=== PATIENT | female | born 1965 | race Caucasian/White ===

== ENCOUNTER 2023-05-16 13:46 | Outpatient (CLI) | payer OTHER, SELFPAY ==
--- NOTE | ~2023-05-16 | MM_ITS ---
EXAMINATION: MM screening lisa BI w doroteo HISTORY: Screening TECHNIQUE: Craniocaudal and mediolateral oblique 3-D tomosynthesis images were obtained and synthetic 2-D images were generated. CAD analysis was submitted and interpreted. COMPARISON: No prior mammogram is available for comparison at this institution. BREAST PARENCHYMAL COMPOSITION: Not dense: There are scattered areas of fibroglandular density. FINDINGS: There are bilateral asymmetries in the upper outer quadrant of both breasts. There are no s uspicious calcifications or architectural distortion in either breast. IMPRESSION: 1. Bilateral breast asymmetries. 2. Additional spot compression and mediolateral views with possible follow-up breast ultrasound recom mended. BI-RADS Category 0: Incomplete: Needs additional imaging evaluation. Reviewed, dictated and finalized at location A. CUTTER IMPRESSION: 1. Bilateral breast asymmetries. 2. Additional spot compression and mediolateral views with possible follow-up b reast ultrasound recommended. BI-RADS Category 0: Incomplete: Needs additional imaging evaluation.
== END 2023-05-16 13:47 | disposition home or self-care (01) ==
LOC: ANHIMG 13:49
PROVIDERS: Visit Provider Obstetrics & Gynecology
DX: Z12.31 Encounter for screening mammogram for malignant neoplasm of breast (principal); R92.8 Other abnormal and inconclusive findings on diagnostic imaging of breast
CPT/HCPCS: 77063; 77067

== ENCOUNTER 2024-06-01 10:08 | Emergency (ER) | payer OTHER, SELFPAY ==
--- NOTE | ~2024-06-01 | CT_ITS ---
CT pelvis wo con Ordering provider: Jessica Lovell PA-C History: . fall, low back pain, left hip/pelvis pain . Comparison: None. Technique: CT pelvis without oral and IV contrast. . Automated exposure control and iterative recons truction technique were employed. The dose-length product was 208.64 mGy-cm. Findings: BONES: Fracture of the left pubic bone is noted with no displacement. Possibility of fracture in the left inferior pubic ramus is not excluded. Age appropriate degenerative changes of the visualized low er lumbar spine. The hip and sacroiliac joint spaces shows osteoarthritic changes. SUPERFICIAL SOFT TISSUES: Normal. PELVIC ORGANS: The bladder shows slightly thickened wall. VISUALIZED BOWEL AND MESENTERY: Normal. No free air or free fluid. No lymphadenopathy. RETROPERITONEUM: Mild atheromatous disease. IMPRESSION: Undisplaced fracture of the left pubic bone with possibility of a fracture in the left inferior pubic ramus. Follow-up advised. Reviewed, dictated and finalized at location A. IMPRESSION: Undisplaced fracture of the left pubic bone with possibility of a fracture in t he left inferior pubic ramus. Follow-up advised.
--- NOTE | ~2024-06-01 | XR_ITS ---
EXAMINATION: XR hip LT min 3V w AP pelvis DATE: 06/01/2024 11:45 INDICATION: Left hip injury. TECHNIQUE: An anteroposterior view of the pelvis and 3 views of left hip were obtained. COMPARISON: None. FINDINGS: Alignment is normal. There is a fracture deformity of left parasymphyseal pubis. There is m ild osteoarthritis of the hips. There is at least mild lumbar spondylosis. IMPRESSION: 1. Age-indeterminate fracture deformity of left parasymphyseal pubis. 2. Mild osteoarthritis of the hips. Reviewed, dictated and finalized at location B.
[2024-06-01 10:12] VITALS: BP 122/76; PULSE 86; RESP 16; TEMP 36.7; O2SAT 99
--- OUTSIDE RECORDS SUMMARY | 2024-06-01 11:28 | XMS_ITS | Clinical Summary ---
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 take with empty stomach, 45 minutes before food/medications /supplement. Taking consistently and correctly to ensure good/stable absorption of the thyroid hormone medication. 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); Autoimmune thyroiditis 03/23/2024 [facility]phone [facility] [address] [place] [address] Outpatient Health 4th Floor [address] [place] [phone] Nuvia Staton 03/19/2024 Telephone [facility] [address] [facility] Outpatient Health 4th Floor [address] [place] [address] Nuvia Staton from Last 3 Months Social History Tobacco Use Types Packs/Day Years Used Date Smoking Tobacco: Never Smokeless Tobacco: Never Tobacco Cessation:Counseling Given: Not Answered Comments Unknown Sex and Gender Information Value Date Recorded Sex Assigned at Not on file Legal Sex Female 10:11 AM CDT Gender Identity Not on file Sexual Orientation Not on file Obstetrics History Last Filed Vital Signs Vital Sign Reading Time Taken Comments Blood Pressure 147/75 04/09/2024 3:51 PM DESIGN ENGINEER [employer] Pulse 96 04/09/2024 3:00 PM DESIGN ENGINEER [employer] Temperature 36.7 C (98.1 F) 04/09/2024 3:00 PM DESIGN ENGINEER [employer] Respiratory Rate - - Oxygen Saturation - - Inhaled Oxygen Concentration - - Weight 62.3 kg (137 lb 6.4 oz) 04/09/2024 3:00 P M DESIGN ENGINEER [employer] Height 172.7 cm (5' 8 ) 04/09/2024 3:00 PM DESIGN ENGINEER [employer] Body Mass Index 20.89 04/09/2024 3:00 PM DESIGN ENGINEER [employer] Plan of Treatment Health Maintenance Due Date Last Done Comments Breast Cancer Screening-Mammogram 1965 Cervical Cancer Screening 1965 Colon Cancer Screening-Colonoscopy 1963 Depression Screening 1965 Hepatitis C Screening 1965 DTaP/Tdap/Td Vaccine (1 - Tdap) 12/23/1974 Hepatitis B Screening 12/23/1981 Regular Well Visit/Exam 18-64 12/23/1981 Zoster Vaccine (1 of 2) 12/23/2013 Covid-19 Vaccine ( season) 2023 10/18/2021, 03/13/2021, 07/20/2020, Additional history exists Influenza Vaccine (#1) 2023 Pneumococcal vaccine <65 Aged Out No longer eligible based on patient's age to complete this topic Insurance [facility] Care Teams Memorial Designer Relationship Specialty Start Date End Date Tod Vargas MD [address] [address] PCP - General Family Medicine 07/16/21
--- OUTSIDE RECORDS SUMMARY | 2024-06-01 11:28 | XMS_ITS | Clinical Summary ---
Author Organization [facility] [employer] Address [address] [facility] [place] [address] Care Team Providers Care Director Decision Support Name Role Phone Floresita Sinha Primary Care Provider [phone] Source Comments [facility],non-owned Affiliates and Associated Physician Practices is amultiple site organization consisting of ambulatory clinics and hospital sitesin [place], [place], [place] and [place]. This disclosure is being madepursuant to the Care Everywhere program and may not contain all information available regarding this patient. Last updated 17.[facility] [employer] Allergies No known active allergies Medications * Be aware that medications may not be up to date on this document. Alwaysverify current medications with the patient. Medication Sig Dispensed Refills Start Date End Date Status folic acid (Folvite) 1 MG tablet Take 1 (one) tablet by mouth every morning 12/27/2022 Active levothyroxine (Synthroid) 100 MCG tablet 03/30/2005 Active cyanocobalamin (Vitamin B-12) 1000 MCG tablet Take by mouth once daily Active clobetasol (Temovate) 0.05 % solutionIndications:O ther cicatricial alopecia Apply to scalp twice daily. 30 days supply. 50 mL 3 08/07/2023 Active doxycycline hyclate 100 MG tabletIndications:Oth er cicatricial alopecia TAKE 1 TABLET BY MOUTH TWICE DAILY 60 tablet 2 11/03/2023 Active ketoconazole (Nizoral) 2 % shampooIndications:Ot her seborrheic dermatitis Apply to wet hair, leave on for 3 minutes, then rinse; three times weekly. 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 Immunizations Name Administration Dates Next Due Covid Pfizer primary monoval ent 12+ yr 0.3mL Purple cap 07/20/2020,06/28/2020 MODERNA SARS-COV-2 COVID-19 VACCINE 0.25ML 03/13 Social History Tobacco Use Types Packs/Day Years Used Date Smoking Tobacco: Never Smokeless Tobacco: Never Tobacco Cessation:Counseling Given: Not Answered Alcohol Use Standard Drinks/Week Comments Yes 0 (1 standard drink = 0.6 oz pur e alcohol) occasionaly Sex and Gender Information Value Date Recorded Sex Assigned at Female 01/28/2023 11:52 AM MARKETING SUPPORT COORDINATOR Gender Identity Female 01/28/2023 11:52 AM MARKETING SUPPORT COORDINATOR Sexual Orientation Not on file Plan of Treatment Upcoming Encounters Date Type Department Care Team (Late st Contact Info) Description 08/02/2024 2:10 PM CDT Office Visit [facility] - Dermatology [address] [place] [address], [place] [address] Kylee Razo MD [address] [place] [address] [place] [address] Health Maintenance Due Date Last Done Comments COLON MONITORING 1963 COLONOSCOPY - COLON CA SCREENING 1963 CT COLONOGRAPHY - COLON CA SCREENING 1963 FIT - COLON CA SCREENING 1963 FLEX SIG - COLON CA SCREENING 1963 LIPID TESTING 1963 MAMMOGRAM 1963 PAP SMEAR 1963 HIV SCREENING 12/23/1978 HEPATITIS C SCREENING 12/19/1981 DTAP/TDAP/TD VACCINES (1 - Tdap) 12/23/1982 PNEUMOCOCCAL VACCINE 50+ (1 of 1 - PCV) 12/23/2013 ZOSTER VACCINE (1 of 2) 12/23/2013 COVID-19 VACCINE ( season) 2023 04/28/2022, 03/13/2021, 07/20/2020, Additional history exists INFLUENZA VACCINE (#1) 2023 DEPRESSION SCREENING 03/24/2024 COLOGUARD (AGES 45-75) - COLON CA SCREENING 11/07/2024 11/07/2021 Colorectal Cancer Screening 11/07/2024 Respiratory Syncytial Virus (RSV) Vaccine Pt: or over 60 yrs (1 - 1-dose 75+ series) 12/23/2038 HEPATITIS B VACCINE Aged Out No longe r eligible based on patient's age to complete this topic HIB VACCINE Aged Out No longer eligi ble based on patient's age to complete this topic HPV VACCINE Aged Out No longer eligi ble based on patient's age to complete this topic MENINGOCOCCAL (Group B) VACCINE Aged Out No longer eligible based on patient's age to complete this topic MENINGOCOCCAL VACCINE Aged Out No pete bipin eligible based on patient's age to complete this topic Care Teams Director Decision Support Relationship Specialty Start Date End Date Florseita Sinha [address] [place] [address] PCP - General 02/02/24
--- OUTSIDE RECORDS SUMMARY | 2024-06-01 11:28 | XMS_ITS | Patient Health Summary ---
Author Organization [facility] Address [address] [facility] [place] [address] Care Team Providers Care General Labor Forklift Operator Name Role Phone Floresita Sinha Primary Care Provider [phone] Note from [facility],non-owned Affiliates and Associated Physician Practices is amultiple site organization consisting of ambulatory clinics and hospital sitesin [place], [place], [place] and [place]. This disclosure is being madepursuant to the Care Everywhere program and may not contain all information available regarding this patient. Last updated 17.[facility] Allergies No known active allergies Medications * Be aware that medications may not be up to date on this document. Alwaysverify current medications with the patient. * folic acid (Folvite) 1 MG tablet(Started 12/27/2022) Take 1 (one) tablet by mouth every morning * levothyroxine (Synthroid) 100 MCG tablet(Started 03/30/2005) * cyanocobalamin (Vitamin B-12) 1000 MCG tablet Take by mouth once daily * clobetasol (Temovate) 0.05 % solution(Started 08/07/2023) Apply to scalp twice daily. 30 days supply. 3 refills by 08/06/2024 * doxycycline hyclate 100 MG tablet(Started 11/03/2023) TAKE 1 TABLET BY MOUTH TWICE DAILY 2 refills by 11/02/2024 * ketoconazole (Nizoral) 2 % shampoo(Started 02/02/2024) Apply to wet hair, leave on for 3 minutes, then rinse; three times weekly. 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 Immunizations * Covid Pfizer primary monovalent 12+ yr 0.3mL Purple cap(Given 07/20/2020, 06/28/2020) * MODERNA SARS-COV-2 COVID-19 VACCINE 0.25ML(Given 03/13/2021) Social History Tobacco Use Types Packs/Day Years Used Date Smoking Tobacco: Never Smokeless Tobacco: Never Tobacco Cessation:Counseling Given: Not Answered Alcohol Use Standard Drinks/Week Comments Yes 0 (1 standard drink = 0.6 oz pur e alcohol) occasionaly Sex and Gender Information Value Date Recorded Sex Assigned at Female 01/28/2023 11:52 AM SATURATOR Gender Identity Female 01/28/2023 11:52 AM SATURATOR Sexual Orientation Not on file Procedures * SC DESTROY PREMALIG LESION, 2-14(Performed 02/02/2024) Performed for Actinic keratosis * SC DESTROY PREMALIG LESION, 1ST LESION(Performed 02/02/2024) Performed for Actinic keratosis * SC TANGNTL BX SKIN SINGLE LES(Performed 07/28/2023) Performed for Neoplasm of uncertain behavior of skin * SC DESTROY PREMALIG LESION, 1ST LESION(Performed 07/28/2023) Performed for AK (actinic keratosis) * DERMATOPATHOLOGY(Performed 07/28/2023) Performed for Neoplasm of uncertain behavior of skin * SC EXC SKIN MALIG <5MM TRUNK,ARM,LEG(Performed 03/04/2023) Performed for Basal cell carcinoma (BCC) of chest * SC EXC SKIN MALIG 2.1-3CM TRUNK,ARM,LEG(Performed 03/04/2023) Performed for Basal cell carcinoma (BCC) of chest * PROC EXCISION LESION TRUNK ARM LEG MALIG(Performed 03/04/2023) Performed for Basal cell carcinoma (BCC) of chest * DERMATOPATHOLOGY(Performed 03/04/2023) Performed for Basal cell carcinoma (BCC) of chest * SC TANGNTL BX SKIN EA SEP ADDL(Performed 01/30/2023) Performed for Neoplasm of uncertain behavior of skin * SC TANGNTL BX SKIN SINGLE LES(Performed 01/30/2023) Performed for Neoplasm of uncertain behavior of skin * SC DESTROY PREMALIG LESION, 2-14(Performed 01/30/2023) Performed for AK (actinic keratosis) * SC DESTROY PREMALIG LESION, 1ST LESION(Performed 01/30/2023) Performed for AK (actinic keratosis) * DERMATOPATHOLOGY(Performed 01/30/2023) Performed for Neoplasm of uncertain behavior of skin Results * SC DESTROY PREMALIG LESION, 1ST LESION, SC DESTROY PREMALIG LESION, 2-14 (02/02/2024 3:05 PM SATURATOR) Kylee Vaughn MD - 02/02/2024 3:05 PM SATURATOR Aidan Stephen MD 02/02/2024 3:05 PM Diagnosis and treatment options discussed. Cryotherapy (Liquid Nitrogen) to 5 lesions for 4-6 seconds each. Number of cycles: 1. Wound care reviewed. Kylee Razo MD PROCEDURE/MINOR SURG ICAL ORDERABLES * SC TANGNTL BX SKIN SINGLE LES (07/28/2023 11:01 AM CDT) Kylee Vaughn MD - 07/28/2023 11:01 AM CDT Wesly Fernández MD 07/28/2023 11:01 AM Risks, benefits and alternatives to shave biopsy were discussed with the patient. Pt understands the possibility for the following: Bleeding, infection, scar (100% chance), the possibility of non-diagnostic reading and the potential need for further testing or treatment, including surgical. Stated clearly the size of the specimen and the need to obtain adequate tissue for the most accurate path reading. Pt accepts all of above, verbal consent was obtained. Location: Vertex scalp Skin prep: Alcohol Anesthesia: 1% lidocaine with epinephrine Hemostasis: Aluminum chloride Dressing and wound care discussed Wesly Fernández MD Dermatology Resident, PGY-2 Kylee Razo MD PROCEDURE/MINOR SURG ICAL ORDERABLES * SC DESTROY PREMALIG LESION, 1ST LESION (07/28/2023 11:01 AM CDT) Kylee Vaughn MD - 07/28/2023 11:01 AM CDT Wesly Fernández MD 07/28/2023 11:01 AM Diagnosis and treatment options discussed, addressing the benefit and risks of each. Pt wish to proceed with cryotherapy. Liquid Nitrogen was applied to 1 lesion on (left forehead) for 7-10s each. Number of cycles: 1. Wound care reviewed. Wesly Fernández MD Dermatology Resident, PGY-2 Kylee Razo MD PROCEDURE/MINOR SURG ICAL ORDERABLES * DERMATOPATHOLOGY (07/28/2023 3:33 AM CDT) Only the most recent of3 resultswithin the time period is included. Case Report Dermatopathology Report Case: [id number] Authorizing Provider: Kylee Razo MD Collected: 07/28/2023 03:33 AM Ordering Location: [facility] - Received: 07/28/2023 01:36 PM Dermatology Pathologist: Ying Castillo MD Specimen: Skin, vertex scalp 11:37 AM CDT DERMATOPATHOLOGY LABORATORY Final Diagnosis Specimen A. 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 11:37 AM CDT DERMATOPATHOLOGY LABORATORY Gross Description Specimen A: Received is one formalin filled container labeled with the patient's name and designated vertex scalp. The specimen consists of a shave biopsy measuring 10x7x2 mm. Jar 0. 11:37 AM CDT DERMATOPATHOLOGY LABORATORY Microscopic Description Specimen A. SKIN, vertex scalp: Sections show a perifollicular lymphohistiocytic infiltrate. There is dermal fibrosis with is accentuated perifollicularly. Additional deeper sections were obtained and reviewed. Grocott's methenamine silver (GMS) stain fails to highlight fungal elements in the available sections. Verhoeff-Van Gieson (VVG) elastic stain highlights foci of diminished elastic fibers. Comment: These findings are favored to represent superficial sampling of a lymphocytic scarring alopecia, such as lichen planopilaris. Clinicopathologic correlation is recommended. 11:37 AM CDT DERMATOPATHOLOGY LABORATORY Disclaimer An external and internal positive and negative controls are appropriate for the histochemical, immunohistochemical and immunofluorescence stain(s) in this case (if any), except where stated explicitly. The performance characteristics of the stain(s) cited in this report were developed and its performance characteristic determined by the Dermatopathology Laboratory at [facility], directed by Dr. Dmitry Rousseau. These tests need not be, and therefore are not, approved by the [place] Food and Drug Administration. The tests are used for clinical purposes. Billing Codes Specimen Charges Stain Charges 53964 1 [id number] 1 1 4 11:37 AM CDT DERMATOPATHOLOGY LABORATORY Embedded Images 4 11:37 AM CDT DERMATOPATHOLOGY LABORATORY Pathology/Cytolo gy TISSUE SPECIMEN FROM SKIN / Unknown 07/28/2023 3:33 AM CDT 07/28/2023 1:36 PM CDT Kylee Razo MD LAB - PATHOLOGY/CYTO LOGY ORDERABLES DERMATOPATHOLOGY LABORATORY [facility] - Department of Dermatology [address], [address] [phone] * SC EXC SKIN MALIG 2.1-3CM TRUNK,ARM,LEG, SC EXC SKIN MALIG <5MM TRUNK,ARM,LEG (03/04/2023 4:11 PM SATURATOR) Narrative Kylee Razo MD - 03/04/2023 4:11 PM SATURATOR Kylee Razo MD 03/04/2023 4:14 PM Elliptical Excision with Intermediate Closure Date of Service: 03/04/2023 Tumor Type: BCC Location: central chest Derm-Path Lesion Size: 1.6 *1.1 cm Repair Type: Intermediate Repair Size: 4.8 cm Suture Material: 4-0 monocryl Level of Defect: adipose Surgical Margins: 4 mm Primary Surgeon: Dung Head Rigger: Brendon INDICATIONS: The risks of bleeding, infection, discomfort, incomplete removal, and scar formation were explained to the patient. All questions were answered. After informed consent, confirmation of site and identity, and appropriate instructions, the patient underwent the procedure as follows: PROCEDURE: With the patient in a supine position, the lesion was outlined with 0.4 cm margins measuring 2.4 x 1.9 cm. An ellipse was designed around the lesion to conform to relaxed skin tension lines in an effort to minimize scarring and deformity. The patient was then positioned on the table. The lesion and surrounding skin were prepped with chlorhexidine, draped, and anesthetized with 1% lidocaine with epinephrine 1:100,100 buffered with 1:10 sodium bicarbonate. Using a #15 blade the skin was excised along premarked lines. The resulting defect extended to adipose. Wound margins were undermined to limit functional deformity/impairment of adjacent structures. Bleeding vessels were controlled with monopolar electrodesiccation. The dermis and subcutaneous tissue were closed with buried vertical mattress sutures. Epidermal approximation was meticulously refined with subcutaneous running sutures, resulting in a linear closure with little to no wound tension. Blood loss was estimated to be less than 5cc. The area was covered with steri strip and covered with a non-adherent dressing followed by gauze and tape. Postoperative instructions were reviewed per protocol. The patient left alert and fully oriented. Antibiotics none Kylee Razo MD Kylee Razo MD PROCEDURE/MINOR SURG ICAL ORDERABLES * SC TANGNTL BX SKIN SINGLE LES, SC TANGNTL BX SKIN EA SEP ADDL (01/30/2023 10:22 AM SATURATOR) Narrative Kylee Razo MD - 01/30/2023 10:22 AM SATURATOR Kylee Razo MD 02/05/2023 8:51 AM Derm - Shave Biopsy Date/Time: 01/30/2023 10:22 AM Performed by: Kylee Razo MD Authorized by: Kylee Razo MD Consent given by: patient Consent type: verbal Risks discussed with patient: bleeding, need for further testing/treatment, infection, scar formation, skin color change and non-diagnostic biopsy. Procedure details: Skin prep: isopropyl alcohol Anesthesia: bupivacaine 0.25% with epi Location information Central chest Number of standard lesions: 1 Total number of lesions: 2 Instrument(s) used: flexible razor blade Hemostasis achieved with aluminum chloride Wound dressing: bandage and petrolatum EBL: no blood loss Complications: none Wound care discussed with patient? yes Specimen(s) sent to pathology Patient preferred contact method(s): phone Kylee Razo MD PROCEDURE/MINOR SURG ICAL ORDERABLES * SC DESTROY PREMALIG LESION, 1ST LESION, SC DESTROY PREMALIG LESION, 2-14 (01/30/2023 10:22 AM SATURATOR) Narrative Kylee Razo MD - 01/30/2023 10:22 AM SATURATOR Kylee Razo MD 02/05/2023 8:51 AM Derm - Destruction Pre-malignant Date/Time: 01/30/2023 10:22 AM Performed by: Kylee Razo MD Authorized by: Kylee Razo MD Consent given by: patient Consent type: verbal Risks discussed with patient: scar formation, skin color change, need for further testing/treatment, pain, blistering and infection. Consent type: verbal Procedure details: Location information L cheek and FH Number of standard lesions: 2 Total number of lesions: 2 Destruction method: cryotherapy Cryotherapy cycles: 1 Cryotherapy time per cycle (seconds): 5-7 Complications: none Wound care discussed with patient? yes Kylee Razo MD PROCEDURE/MINOR SURG ICAL ORDERABLES Care Teams General Labor Forklift Operator Relationship Specialty Start Date End Date [facility] [place] [phone] PCP - General 02/02/24
--- OUTSIDE RECORDS SUMMARY | 2024-06-01 11:28 | XMS_ITS | Referral Summary ---
Author Organization [facility] [address] Address [address] [place] [address] Care Team Providers Care Machine I Engraver Name Role Phone Tod Vargas MD Primary Care Provi moraima Encounters Date Type Department Care Team Description 04/13/2024 Telephone [facility] Endocrinology Metabolism and Lipid [address] [facility] 5th [place] [address] [place] [phone] Micha Durant RN Prior Auth (Synthroid ) 04/09/2024 3:00 PM SET UP MECHANIC COIL WINDING MACHINES Office Visit [facility] Endocrinology Metabolism and Lipid [address] [facility] [address] [place] [address] Skip Ahn MD 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); Autoimmune thyroiditis 03/23/2024 [facility] [address] [place] [address] Outpatient Health 4th Floor [address] [place] [phone] Nuvia Staton 03/19/2024 [facility]phone [facility] [address] [place] [address] Outpatient Health 4th Floor [address] [place] [phone] Nuvia Staton from Last 3 Months Allergies No known active allergies Medications albuterol [...] Active Active Problems No known active problems Social History Tobacco Use Types Packs/Day Years Used Date Smoking Tobacco: Never Smokeless Tobacco: Never Tobacco Cessation:Counseling Given: Not Answered Comments Unknown Sex and Gender Information Value Date Recorded Sex Assigned at Not on file Legal Sex Female 10:11 AM CDT Gender Identity Not on file Sexual Orientation Not on file Last Filed Vital Signs Vital Sign Reading Time Taken Comments Blood Pressure 147/75 04/09/2024 3:51 PM SET UP MECHANIC COIL WINDING MACHINES Pulse 96 04/09/2024 3:00 PM SET UP MECHANIC COIL WINDING MACHINES Temperature 36.7 C (98.1 F) 04/09/2024 3:00 PM SET UP MECHANIC COIL WINDING MACHINES Respiratory Rate - - Oxygen Saturation - - Inhaled Oxygen Concentration - - Weight 62.3 kg (137 lb 6.4 oz) 04/09/2024 3:00 P M SET UP MECHANIC COIL WINDING MACHINES Height 172.7 cm (5' 8 ) 04/09/2024 3:00 PM SET UP MECHANIC COIL WINDING MACHINES Body Mass Index 20.89 04/09/2024 3:00 PM SET UP MECHANIC COIL WINDING MACHINES Plan of Treatment Not on file Insurance [facility] Care Teams Machine I Engraver Relationship Specialty Start Date End Date Tod Vargas MD [address] [address] PCP - General Family Medicine 07/16/21
--- OUTSIDE RECORDS SUMMARY | 2024-06-01 11:28 | XMS_ITS | Referral Summary ---
Author Organization [facility] Address [address] [facility] [place] [address] Care Team Providers Care Sys Dir Name Role Phone Floresita Sinha Primary Care Provider [phone] Source Comments [facility],non-owned Affiliates and Associated Physician Practices is amultiple site organization consisting of ambulatory clinics and hospital sitesin [place], [place], [place] and [place]. This disclosure is being madepursuant to the Care Everywhere program and may not contain all information available regarding this patient. Last updated 17.[facility] Allergies No known active allergies Medications * [...] Sex Assigned at Female 01/28/2023 11:52 AM SUCTION OPERATOR Gender Identity Female 01/28/2023 11:52 AM SUCTION OPERATOR Sexual Orientation Not on file Plan of Treatment Upcoming Encounters Date Type Department Care Team (Late st Contact Info) Description 08/02/2024 2:10 PM CDT Office Visit [facility] - Dermatology [address] [place] [address], [place] [address] Kylee Razo MD [address] [place] [address] [place] [address] Care Teams Sys Dir Relationship Specialty Start Date End Date Floresita Sinha [address] [place] [phone] PCP - General 02/02/24
--- NOTE | 2024-06-01 11:56 | ED_ITS ---
HPI - Fall General Chief Complaint: Fall Stated Complaint: left groin pain after fall on 05/29/24 Time Seen by Provider: 06/01/24 11:05 Source: patient Mode of arrival: wheelchair Limitations: no limitations History of Present Illness HPI Narrative: This is a 58-year-old female that presents to the emergency department for left hip pain. Reports she was going to sit down and missed the chair 3 days ago. She fell backwards onto her bottom. Since she has been having low back pain and left hip pain. She is unable to bear weight due to pain. Denies decreased ROM or numbness. Related Data Home Medications ?Medication ?Instructions ?Recorded ?Confirmed ?Last Taken ?Type levothyroxine 100 mcg tablet 100 mcg PO DAILY 01/13/23 01/21/24 Unknown History (Synthroid) dextroamphetamine-amphetamine 10 PO 01/21/24 01/21/24 Unknown History mg tablet doxycycline hyclate 100 mg tablet mg PO 01/21/24 01/21/24 Unknown History Allergies Allergy/AdvReac Type Severity Reaction Status Date / Time No Known Allergies Allergy Verified 06/01/24 10:16 Review of Systems Review of Systems: CONSTITUTIONAL: Denies fever MUSCULOSKELETAL: Reports back pain, joint pain, and myalgia. NEUROLOGIC: Denies numbness, or weakness. All systems reviewed & are unremarkable except as noted in HPI and below PMFSH Past Medical History Medical History (Updated 06/01/24 @ 13:18 by Jessica Lovell PA-C) Lichen planopilaris Breast asymmetry Osteoporosis Cervical endometriosis Hypothyroid Surgical History Surgical History (Updated 01/21/24 @ 10:58 by Bobo Arteaga MA) Basal cell carcinoma History of cholecystectomy H/O laparoscopy xs 2 for endometriosis Family History Family History Grandparent Breast cancer AD (Alzheimer's disease) Grandparent Cerebrovascular accident Social History Social History Smoking status: Never smoker Alcohol intake: current Alcohol use details: socially Substance use: never Substance use type: does not use Do You Feel Safe in your Home?: Yes Lack of Transportation: No Lack of Food: Never True Current Housing: I Have Housing Concerned About Future Housing: No Difficulty Paying Gas/Electric Bills: No Difficulty Paying for Meds: No Currently Unemployed: No Education: Master's Degree or Higher Difficulty w/ Childcare or Family Care: No Living arrangements: with family Occupation/Education: unemployed Gender identity (if verbalized by the patient): Female Sexual Orientation (if Verbalized by the Patient): Straight or Heterosexual Exam Narrative: GENERAL: Well-appearing, well-nourished, and in no acute distress. HEAD: Normocephalic, atraumatic. EYES: EOMI. CHEST: Clear to auscultation. No respiratory distress. No wheezes rales or rhonchi HEART: Regular rate and rhythm. No murmur heard. Normal peripheral pulses. EXTREMITIES: Normal range of motion. No edema. Normal DP pulse. Normal sensation SKIN: Warm, dry, no rash. NEURO: No focal deficits. Alert and oriented x3. PSYCH: Normal mood and affect Course Course Emergency Course: Patient updated on her workup. Reports she has a walker at home she can use Vital Signs Vital signs: Vital Signs Temperature 98.1 F 06/01/24 10:12 Pulse Rate 86 06/01/24 10:12 Respiratory Rate 16 06/01/24 10:12 Blood Pressure 122/76 06/01/24 10:12 Pulse Oximetry 99 06/01/24 10:12 Oxygen Delivery Room Air 06/01/24 10:12 Temperature 97.0 F L 06/01/24 13:36 Pulse Rate 76 06/01/24 13:36 Respiratory Rate 16 06/01/24 13:36 Blood Pressure 124/75 06/01/24 13:36 Pulse Oximetry 100 06/01/24 13:36 Oxygen Delivery Room Air 06/01/24 10:12 MDM - Fall MDM Narrative Medical decision making narrative: Patient presents the emergency department after a fall a couple of days prior to arrival with left hip/low back pain. She is neurovascularly intact. Left hip x-ray shows an age-indeterminate left pubic fracture. CT pelvis obtained for further evaluation. This shows a nondisplaced fracture of the left pubic bone. Patient was updated on her workup. Reports she has a walker at home she can use. Will be given follow-up with Orthopedics. She was given warnings to return to the ER Differential Diagnosis Differential diagnosis: Likely other (Hip fracture, pelvic fracture, sacral fracture) Imaging Data Radiologist's impression: ITS Impressions Hip/Pelvis X-Ray 06/01/24 11:48 IMPRESSION: 1. Age-indeterminate fracture deformity of left parasymphyseal pubis. 2. Mild osteoarthritis of the hips. Pelvis CT 06/01/24 12:10 IMPRESSION: Undisplaced fracture of the left pubic bone with possibility of a fracture in the left inferior pubic ramus. Follow-up advised. Critical Care Time Critical Care Time Critical Care Time: No Discharge Plan Discharge Clinical Impression: Pubic bone fracture Qualifiers: Encounter type: initial encounter Sublocation of pubis: unspecified portion of pubis Fracture type: closed Laterality: left Qualified Code(s): S32.502A - Unspecified fracture of left pubis, initial encounter for closed fracture Patient Disposition: Home, Self-Care Condition: Stable Instructions: Pelvic Fracture (ED) Additional Instructions: Return to the ER if you experience fever, redness and swelling of your e xtremity, numbness or any other symptoms that are concerning to you Use walker. No weight on the affected leg. Ice and elevate extremity. Pain medication as needed and directed. Follow up with orthopedics for further care. Patient Language: Ukrainian Prescriptions: New hydrocodone-acetaminophen 5-325 mg tablet 1 tablet PO Q6H PRN (Reason: pain) Qty: 20 0RF No Action levothyroxine [Synthroid] 100 mcg tablet 100 mcg PO DAILY dextroamphetamine-amphetamine 10 mg tablet PO doxycycline hyclate 100 mg tablet PO Follow-up/Referrals: Tin Alcazar MD [Physician] - UNKNOWN,DOCTOR [Primary Care Provider] -
[2024-06-01] MEDS: HYDROcodone/acetaminophen (*CRX) 5-325 MG TABLET 1 TAB PO (12:00)
--- OUTSIDE RECORDS SUMMARY | 2024-06-01 13:15 | XMS_ITS | Patient Health Summary ---
Author Organization [facility] Address [address] [place] [address] Care Team Providers Care Time Clock Repairer Name Role Phone Floresita Sinha Primary Care Provider [phone] Note from Formerly named [facility],non-owned Affiliates and Associated Physician Practices is amultiple site organization consisting of ambulatory clinics and hospital sitesin [place], [place], [place] and [place]. This disclosure is being madepursuant to the Care Everywhere program and may not contain all information available regarding this patient. Last updated 17.[facility] Allergies No known active allergies Medications * [...] Sex Assigned at Female 01/28/2023 11:52 AM SEWER BUILDER Gender Identity Female 01/28/2023 11:52 AM SEWER BUILDER Sexual Orientation Not on file Procedures * KS DESTROY PREMALIG LESION, 2-14(Performed 02/02/2024) Performed for Actinic keratosis * KS DESTROY PREMALIG LESION, 1ST LESION(Performed 02/02/2024) Performed for Actinic keratosis * KS TANGNTL BX SKIN SINGLE LES(Performed 07/28/2023) Performed for Neoplasm of uncertain behavior of skin * KS DESTROY PREMALIG LESION, 1ST LESION(Performed 07/28/2023) Performed for AK (actinic keratosis) * DERMATOPATHOLOGY(Performed 07/28/2023) Performed for Neoplasm of uncertain behavior of skin * KS EXC SKIN MALIG <5MM TRUNK,ARM,LEG(Performed 03/04/2023) Performed for Basal cell carcinoma (BCC) of chest * KS EXC SKIN MALIG 2.1-3CM TRUNK,ARM,LEG(Performed 03/04/2023) Performed for Basal cell carcinoma (BCC) of chest * PROC EXCISION LESION TRUNK ARM LEG MALIG(Performed 03/04/2023) Performed for Basal cell carcinoma (BCC) of chest * DERMATOPATHOLOGY(Performed 03/04/2023) Performed for Basal cell carcinoma (BCC) of chest * KS TANGNTL BX SKIN EA SEP ADDL(Performed 01/30/2023) Performed for Neoplasm of uncertain behavior of skin * KS TANGNTL BX SKIN SINGLE LES(Performed 01/30/2023) Performed for Neoplasm of uncertain behavior of skin * KS DESTROY PREMALIG LESION, 2-14(Performed 01/30/2023) Performed for AK (actinic keratosis) * KS DESTROY PREMALIG LESION, 1ST LESION(Performed 01/30/2023) Performed for AK (actinic keratosis) * DERMATOPATHOLOGY(Performed 01/30/2023) Performed for Neoplasm of uncertain behavior of skin Results * KS DESTROY PREMALIG LESION, 1ST LESION, KS DESTROY PREMALIG LESION, 2-14 (02/02/2024 3:05 PM SEWER BUILDER) Kylee Vaughn MD - 02/02/2024 3:05 PM SEWER BUILDER Aidna Stephen MD 02/02/2024 3:05 PM Diagnosis and treatment options discussed. Cryotherapy (Liquid Nitrogen) to 5 lesions for 4-6 seconds each. Number of cycles: 1. Wound care reviewed. Kylee Razo MD PROCEDURE/MINOR SURG ICAL ORDERABLES * KS TANGNTL BX SKIN SINGLE LES (07/28/2023 11:01 [...] Razo MD PROCEDURE/MINOR SURG ICAL ORDERABLES * KS DESTROY PREMALIG LESION, 1ST LESION (07/28/2023 11:01 [...] is included. Case Report Dermatopathology Report Case: [id number] Authorizing Provider: Kylee Razo MD Collected: 07/28/2023 03:33 AM Ordering Location: [facility] - Received: 07/28/2023 01:36 PM [...] characteristic determined by the Dermatopathology Laboratory at [facility], directed by Dr. Dmitry Rousseau. These tests need not be, and therefore are not, approved by the [place] Food and Drug Administration. The tests are used for clinical purposes. Billing Codes Specimen Charges Stain Charges 44751 1 72022 84683 1 1 4 11:37 AM CDT DERMATOPATHOLOGY LABORATORY Embedded Images 4 11:37 AM CDT DERMATOPATHOLOGY LABORATORY Pathology/Cytolo gy TISSUE SPECIMEN FROM SKIN / Unknown 07/28/2023 3:33 AM CDT 07/28/2023 1:36 PM CDT Kylee Razo MD LAB - PATHOLOGY/CYTO LOGY ORDERABLES DERMATOPATHOLOGY LABORATORY [facility] - Department of Dermatology [address], [address]rd [address] [phone] * KS EXC SKIN MALIG 2.1-3CM TRUNK,ARM,LEG, KS EXC SKIN MALIG <5MM TRUNK,ARM,LEG (03/04/2023 4:11 PM SEWER BUILDER) Narrative Kylee Razo MD - 03/04/2023 4:11 PM SEWER BUILDER Kylee Razo MD 03/04/2023 4:14 PM Elliptical Excision with Intermediate Closure Date of Service: 03/04/2023 Tumor Type: BCC Location: central chest Derm-Path Lesion Size: 1.6 *1.1 cm Repair Type: Intermediate Repair Size: 4.8 cm Suture Material: 4-0 monocryl Level of Defect: adipose Surgical Margins: 4 mm Primary Surgeon: Dung Autocad Operator: Brendon INDICATIONS: The risks of bleeding, infection, [...] left alert and fully oriented. Antibiotics none yKlee Razo MD Kylee Razo MD PROCEDURE/MINOR SURG ICAL ORDERABLES * KS TANGNTL BX SKIN SINGLE LES, KS TANGNTL BX SKIN EA SEP ADDL (01/30/2023 10:22 AM SEWER BUILDER) Narrative Kylee Razo MD - 01/30/2023 10:22 AM SEWER BUILDER Kylee Razo MD 02/05/2023 8:51 AM Derm [...] Razo MD PROCEDURE/MINOR SURG ICAL ORDERABLES * KS DESTROY PREMALIG LESION, 1ST LESION, KS DESTROY PREMALIG LESION, 2-14 (01/30/2023 10:22 AM SEWER BUILDER) Narrative Kylee Razo MD - 01/30/2023 10:22 AM SEWER BUILDER Kylee Razo MD 02/05/2023 8:51 AM Derm [...] MD PROCEDURE/MINOR SURG ICAL ORDERABLES Care Teams Time Clock Repairer Relationship Specialty Start Date End Date ErnestineFloresita [facility] [place] [address] PCP - General 02/02/24
--- OUTSIDE RECORDS SUMMARY | 2024-06-01 13:15 | XMS_ITS | Clinical Summary ---
Author Organization [facility] [address] Address [address] [place] [address] Care Team Providers Care Manager Of Global Name Role Phone Tod Vargas MD Primary [...] Type Department Care Team Description 04/13/[address] [facility] Endocrinology Metabolism and Lipid [address] [facility] 5th [place] [address] [place] [phone] Micha Durant RN Prior Auth (Synthroid ) 04/09/2024 3:00 PM REINSURANCE ACCOUNTANT Office Visit 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); Autoimmune thyroiditis 03/23/2024 [facility]phone [facility] [address] [place] [address] Outpatient Health 4th Floor [address] [place] [phone] Nuvia Staton 03/19/2024 Telephone [facility] [address] [facility] [place] Outpatient Health 4th Floor [address] [place] [address] Nuvia Staton from Last 3 Months Social [...] Comments Blood Pressure 147/75 04/09/2024 3:51 PM REINSURANCE ACCOUNTANT Pulse 96 04/09/2024 3:00 PM REINSURANCE ACCOUNTANT Temperature 36.7 C (98.1 F) 04/09/2024 3:00 PM REINSURANCE ACCOUNTANT Respiratory Rate - - Oxygen Saturation - - Inhaled Oxygen Concentration - - Weight 62.3 kg (137 lb 6.4 oz) 04/09/2024 3:00 P M REINSURANCE ACCOUNTANT Height 172.7 cm (5' 8 ) 04/09/2024 3:00 PM REINSURANCE ACCOUNTANT Body Mass Index 20.89 04/09/2024 3:00 PM REINSURANCE ACCOUNTANT Plan of Treatment Health Maintenance Due Date [...] patient's age to complete this topic Insurance [facility] Care Teams Manager Of Global Relationship Specialty Start Date End Date Tod Vargas MD [address] [address] PCP - General Family Medicine 07/16/21
--- OUTSIDE RECORDS SUMMARY | 2024-06-01 13:15 | XMS_ITS | Referral Summary ---
Author Organization [facility] Address [address] [place] [address] Care Team Providers Care Engineer Conductor Name Role Phone Floresita Sinha Primary Care Provider [phone] Source Comments [facility],non-owned Affiliates and Associated Physician Practices is amultiple site organization consisting of ambulatory clinics and hospital sitesin [place], [place], [place] and [place]. This disclosure is being madepursuant to the Care Everywhere program and may not contain all information available regarding this patient. Last updated 17.[facility] Allergies No known active allergies Medications * [...] Sex Assigned at Female 01/28/2023 11:52 AM CREW CHIEF Gender Identity Female 01/28/2023 11:52 AM CREW CHIEF Sexual Orientation Not on file Plan of Treatment Upcoming Encounters Date Type Department Care Team (Late st Contact Info) Description 08/02/2024 2:10 PM CDT Office Visit [facility] - Dermatology [address] [place] [address], [place] [address] Kylee Razo MD [address] [place] [address] [place] [address] Care Teams Engineer Conductor Relationship Specialty Start Date End Date Floresita Sinha [address] [place] [phone] PCP - General 02/02/24
--- OUTSIDE RECORDS SUMMARY | 2024-06-01 13:15 | XMS_ITS | Referral Summary ---
Author Organization [facility] [address] Address [address] [place] [address] Care Team Providers Care Office Bookkeeper Name Role Phone Tod Vargas MD Primary Care Provi moraima Encounters Date Type Department Care Team Description 04/13/2024 Telephone [facility] Endocrinology Metabolism and Lipid [address] [facility] 5th [place] [address] [place] [phone] Micha Durant RN Prior Auth (Synthroid ) 04/09/2024 3:00 PM ACIDIZER WATER WELL Office Visit [facility] Endocrinology Metabolism and Lipid [address] [facility] [address] [place] [address] Skip hAn MD 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); Autoimmune thyroiditis 03/23/2024 Telephone [facility] [address] [place] [address] Outpatient Health 4th Floor [address] [place] [phone] Nuvia Staton 03/19/2024 Telephone [facility] [address] [place] [address] Outpatient Health 4th Floor [address] [place] [phone] Nuvia Staton from Last 3 Months Allergies [...] Comments Blood Pressure 147/75 04/09/2024 3:51 PM ACIDIZER WATER WELL Pulse 96 04/09/2024 3:00 PM ACIDIZER WATER WELL Temperature 36.7 C (98.1 F) 04/09/2024 3:00 PM ACIDIZER WATER WELL Respiratory Rate - - Oxygen Saturation - - Inhaled Oxygen Concentration - - Weight 62.3 kg (137 lb 6.4 oz) 04/09/2024 3:00 P M ACIDIZER WATER WELL Height 172.7 cm (5' 8 ) 04/09/2024 3:00 PM ACIDIZER WATER WELL Body Mass Index 20.89 04/09/2024 3:00 PM ACIDIZER WATER WELL Plan of Treatment Not on file Insurance [facility] Care Teams Office Bookkeeper Relationship Specialty Start Date End Date Tod Vargas MD [address] [address] PCP - General Family Medicine 07/16/21
--- OUTSIDE RECORDS SUMMARY | 2024-06-01 13:16 | XMS_ITS | Clinical Summary ---
Author Organization [facility] Address [address] [place] [address] Care Team Providers Care Channel Cementer Insole Machine Name Role Phone Floresita Sinha Primary Care Provider [phone] Source Comments [facility],non-owned Affiliates and Associated Physician Practices is amultiple site organization consisting of ambulatory clinics and hospital sitesin [place], [place], [place] and [place]. This disclosure is being madepursuant to the Care Everywhere program and may not contain all information available regarding this patient. Last updated 17.[facility] Allergies No known active allergies Medications * [...] Sex Assigned at Female 01/28/2023 11:52 AM CAGE TENDER Gender Identity Female 01/28/2023 11:52 AM CAGE TENDER Sexual Orientation Not on file Plan of Treatment Upcoming Encounters Date Type Department Care Team (Late st Contact Info) Description 08/02/2024 2:10 PM CDT Office Visit [facility] - Dermatology [address] [place] [address], [place] [address] Kylee Razo MD [address] [place] [address] [place] [address] Health Maintenance Due Date Last Done Comments [...] age to complete this topic Care Teams Channel Cementer Insole Machine Relationship Specialty Start Date End Date Floresita Sinha [address] [place] [address] PCP - General 02/02/24
--- OUTSIDE RECORDS SUMMARY | 2024-06-01 13:16 | XMS_ITS | Data Portability ---
Author Organization [place] [facility] Mashed jobs, Main Office Address [address] [place] [address] Assessment Encounter Date Assessment Date Assessment LastModified by Organization Details LastModified Time 03/05/2023 03/05/2023 Cscope- cologuard 10/2021- negative- repeat 10/2024 WWE- referred to NURSE REVIEWER- Vlad Pedroza- 09/2021- has scheduled for Apr at [facility]- 09/2021- osteoporosis, refuses meds WEA-08/28/22 Call office if worse, ER if life threatening illness RTC 6 months and PRN- [facility] She voices understanding of plan and agrees [email or web address] Not available 03/05/2023 11:19:57 Plan of Treatment Reminders Order Date Submit Date Provider Last Modified By Organization Details Last Modified Time Details Appointments Any 15 2024 01:00P Trista Sinha APRN Not available Not available Not available Lab TSH, serum or plasma [address] - Outpatient Lab, [address] [place] [address], [address], 01/28/2024 12:23:33 vitamin D, 25-hydrox y, total, serum 2023 024 [email or web address] Not available 07/31/2023 11:23:55 TSH + free T4, serum 2023 024 [email or web address] Not available 07/31/2023 11:23:55 CBC w/ auto diff 2023 024 [email or web address] Not available 07/31/2023 11:23:55 lipid panel, blood 2023 024 [email or web address] Not available 07/31/2023 11:23:56 HbA1c (hemoglob in A1c), blood 2023 024 [email or web address] Not available 07/31/2023 11:23:56 CMP, serum or plasma 2023 024 Not available 07/31/2023 11:23:55 vitamin B12 + folate, serum or blood 2023 024 [email or web address] Not available 07/31/2023 11:23:55 vitamin D, 25-hydrox y, total, serum 2022 023 [email or web address] Not available 03/27/2023 13:59:59 CMP, serum or plasma 2022 023 CAROL Not available 03/05/2023 13:00:55 CBC w/ auto diff 2022 023 CAROL Not available 03/05/2023 12:40:41 lipid panel, serum 2022 023 CAROL Not available 03/05/2023 13:00:59 TSH, serum or plasma 2022 023 CAROL Not available 03/05/2023 14:19:39 T4, free, serum 2022 023 CAROL Not available 03/05/2023 13:05:56 T3, free, serum or plasma 2022 023 CAROL Not available 03/05/2023 13:06:01 thyroid peroxidas e (tpo) Ab, serum 2022 023 CAROL Not available 03/06/2023 08:18:46 HbA1c (hemoglob in A1c), blood 2022 023 [email or web address] Not available 03/27/2023 14:00:22 vitamin B12 + folate, serum or blood 2022 023 [email or web address] Not available 03/27/2023 14:00:43 Referral neurologi denis surgeon referral - Please call patient to schedule. 2023 024 annmarie [facility] Neurosurgery, [address], [place], [address], 05/12/2024 17:40:[address] referral - Please call patient to schedule. 2023 [facility] Audiology, [address], [address], [place], [address], 02/06/2024 15:58:02 physical therapist referral - Please call patient to schedule. 2023 [facility], [address], [place], [address], 01/16/2024 15:53:21 psychiatr ist referral - Please call patient to schedule. 2023 lanie Baker NURSE TRANSITIONAL, [address] [facility], [address], [place], [address], 03/15/2024 08:02:56 endocrino logy referral 2023 CAROL De Souza MD, [address], [address], [place], [address], 04/09/2024 16:55:08 endocrino logy referral - Transfer from Dr. Jennie Horton 2022 023 [email or web address] [place], [address], [address], [facility], [place], [address], Ph [phone] 07/16/2023 09:19:10 Procedures None recorded. Surgeries None recorded. Imaging XR, thoracic spine, 2 view 2023 024 [facility], [address] , [place], [address], 01/20/2024 14:11:21 Medication Orders Synthroid 100 mcg tablet 2024 025 [email or web address] [facility] #98461, [address], [place], [id number], 04/09/2024 17:29:21 diclofena c sodium 75 mg tablet,de layed release 2023 [facility] #57958, [address], [place], [id number], 04/06/2024 15:13:52 dextroamp hetamine- amphetami ne 10 mg tablet 2023 024 [facility] #48659, [address], [place], [id number], 04/06/2024 15:13:26 folic acid 1 mg tablet 2023 024 [facility] #34312, [address] [place] [address], [id number], 04/06/2024 15:13:56 Synthroid 100 mcg tablet 2023 024 [email or web address] [facility] #90264, [address] [place] [address], [id number], 04/09/2024 17:29:21 Patient TargetsNo targets recorded. Patient Instructions Encounter Date Encounter Id Patient Instructions Last Modified By Organization Details Last Modified Time 07/23/2023 [id number] Follow up in 6 months and as needed Obtain labs Prescriptions sent to pharmacy Referral to endocrinology-Dr. Leelee De Souza Not available 07/23/2023 10:27:24 01/14/2024 [id number] Follow up on 01/27 Prescription sent to pharmacy Tests: Thoracic xrays Referral: Recommend: Tetanus vaccine Shingles vaccine Not available 01/14/2024 10:48:01 01/28/2024 [id number] Follow up in 3 months and as needed Tests: Complete lab Referral: Referral to neurosurgeon Recommend: Tetanus vaccine Shingles vaccine Not available 01/28/2024 11:31:33 04/06/2024 [id number] Follow up in 6 months Obtain labs Tests: Referral: Recommend: Tetanus vaccine Shingles vaccine Not available 04/06/2024 15:25:31 Reason for Referral Endocrinology Referral for H ypothyroidism due to Lary's thyroiditis Transfer from Dr. Jennie Horton Referring Physician: Yasmin Sanchez, Internal Medicine, Encounter Date: 03/05/2023 Endocrinology Referral for H ypothyroidism due to Lary's thyroiditis Referring Physician: Floresita Sinha, Internal Medicine, Encounter Date: 07/23/2023 Physical Therapist Referral for Thoracic back pain Please call patient to schedule. Referring Physician: Floresita Sinha Internal Medicine, Encounter Date: 01/14/2024 Psychiatrist Referral for At tention deficit hyperactivity disorder Please call patient to schedule. Referring Physician: Floresita Sinha Internal Medicine, Encounter Date: 01/14/2024 Neurological Surgeon Referra l for Degeneration of intervertebral disc Please call patient to schedule. Referring Physician: Floresita Sinha Internal Medicine, Encounter Date: 01/28/2024 [employer] Super[employer] Referral for Hea ring difficulty Please call patient to schedule. Referring Physician: Floresita Sinha Internal Medicine, Encounter Date: 01/28/2024 Results Created Date Observation Date Name Description Value Unit Range Abnormal Flag Note LastModifiedBy Organization Detail LastModifiedTime 03/05/2003/05/2023 CBC/C OMPLE TE BLD COUNT W/DIF F white blood cells 6.0 x10'3 /uL 4.2-10 .8 Not Available [facility] (Lab) [address] [place], [address], 03/05/2023 12:40:41 03/05/2003/05/2023 CBC/C OMPLE TE BLD COUNT W/DIF F red blood cells 4.21 x10'6 /uL 3.80-5 .20 Not Available [facility] (Lab) [address] [place], [address], 03/05/2023 12:40:41 03/05/20 23 03/05/2023 CBC/C OMPLE TE BLD COUNT W/DIF F hemoglobin 13.4 g/dL 12.0-1 5.6 Not Available [facility] (Lab) [address] [place], [address], 03/05/2023 12:40:41 03/05/20 23 03/05/2023 CBC/C OMPLE TE BLD COUNT W/DIF F hematocrit 41.8 % 35.7-4 5.7 Not Available [facility] (Lab) [address] [place], [address], 03/05/2023 12:40:41 03/05/20 23 03/05/2023 CBC/C OMPLE TE BLD COUNT W/DIF F mean red cell volume 99.3 fL 82.0-9 9.0 high Not Available [facility] [place] [facility] (Lab) [address] [place], [address], 03/05/2023 12:40:41 03/05/2003/05/2023 CBC/C OMPLE TE BLD COUNT W/DIF F mean red cell hemoglobin 31.8 pg 27.0-3 3.0 Not Available [facility] (Lab) [address] [place], [address], 03/05/2023 12:40:41 03/05/20 23 03/05/2023 CBC/C OMPLE TE BLD COUNT W/DIF F mean RBC HGB concentratio n 32.1 g/dL 31.0-3 6.0 Not Available [facility] (Lab) [address] [place], [address], 03/05/2023 12:40:41 03/05/20 23 03/05/2023 CBC/C OMPLE TE BLD COUNT W/DIF F red cell distribution width 12.9 % 11.8-1 5.5 Not Available [facility] (Lab) [address] [facility] [place], [address], 03/05/2023 12:40:41 03/05/2003/05/2023 CBC/C OMPLE TE BLD COUNT W/DIF F platelets 208 x10'3 /uL 150-40 0 Not Available [facility] (Lab) [address] [place], [address], 03/05/2023 12:40:41 03/05/2003/05/2023 CBC/C OMPLE TE BLD COUNT W/DIF F mean platelet volume 10.2 fL 9.0-12 .4 Not Available [facility] (Lab) [address] [place], [address], 03/05/2023 12:40:41 03/05/2003/05/2023 CBC/C OMPLE TE BLD COUNT W/DIF F neutrophils 59.7 % 39.0-7 2.0 Not Available [facility] (Lab) [address] [place], [address], 03/05/2023 12:40:41 03/05/20 23 03/05/2023 CBC/C OMPLE TE BLD COUNT W/DIF F lymphocytes 26.8 % 16.0-4 7.0 Not Available [facility] (Lab) [address] [place], [address], 03/05/2023 12:40:41 03/05/20 23 03/05/2023 CBC/C OMPLE TE BLD COUNT W/DIF F monocytes 9.7 % 5.0-12 .0 Not Available [facility] (Lab) [address] [place], [address], 03/05/2023 12:40:41 03/05/20 23 03/05/2023 CBC/C OMPLE TE BLD COUNT W/DIF F eosinophils 2.9 % 1.0-7. 0 Not Available [facility] (Lab) [address] [place], [address], 03/05/2023 12:40:41 03/05/2003/05/2023 CBC/C OMPLE TE BLD COUNT W/DIF F basophils 0.7 % 0.0-2. 0 Not Available [facility] (Lab) [address] [place], [address], 03/05/2023 12:40:41 03/05/2003/05/2023 CBC/C OMPLE TE BLD COUNT W/DIF F immature granulocytes 0.2 % 0.00-0 .50 Not Available [facility] (Lab) [address] [place], [address], 03/05/2023 12:40:41 03/05/2003/05/2023 CBC/C OMPLE TE BLD COUNT W/DIF F neutrophils, absolute count 3.56 x10'3 /uL 1.5-8. 0 Not Available [facility] (Lab) [address] [place], [address], 03/05/2023 12:40:41 03/05/2003/05/2023 CBC/C OMPLE TE BLD COUNT W/DIF F lymphocytes, absolute count 1.60 x10'3 /uL 1.07-3 .43 Not Available [facility] (Lab) [address] [place], [address], 03/05/2023 12:40:41 03/05/20 23 03/05/2023 CBC/C OMPLE TE BLD COUNT W/DIF F monocytes, absolute count 0.58 x10'3 /uL 0.29-0 .99 Not Available [facility] (Lab) [address] [place], [address], 03/05/2023 12:40:41 03/05/20 23 03/05/2023 CBC/C OMPLE TE BLD COUNT W/DIF F eosinophils, absolute count 0.17 x10'3 /uL 0.02-0 .53 Not Available [facility] (Lab) [address] [place], [address], 03/05/2023 12:40:41 03/05/20 23 03/05/2023 CBC/C OMPLE TE BLD COUNT W/DIF F basophils, absolute count 0.04 x10'3 /uL 0.01-0 .08 Not Available [facility] (Lab) [address] [place], [address], 03/05/2023 12:40:41 03/05/2003/05/2023 CBC/C OMPLE TE BLD COUNT W/DIF F immature granulocytes ,absolute 0.01 x10'3 /uL 0.00-0 .05 Not Available [facility] (Lab) [address] [place], [address], 03/05/2023 12:40:41 03/05/2003/05/2023 CBC/C OMPLE TE BLD COUNT W/DIF F nucleated red blood cells 0.0 % -0 Not Available [facility] (Lab) [address] [place], [address], 03/05/2023 12:40:41 03/05/20 23 03/05/2023 CBC/C OMPLE TE BLD COUNT W/DIF F NRBC# 0.00 x10'3 /uL Not Available [facility] (Lab) [address] [place], [address], 03/05/2023 12:40:41 03/05/2003/05/2023 COMPR EHENS PATRICIA METAB OLIC PANEL sodium 140 mmol/ L 137-14 5 Not Available [facility] (Lab) [address] [place], [address], 03/05/2023 13:00:55 03/05/2003/05/2023 COMPR EHENS PATRICIA METAB OLIC PANEL potassium 4.5 mmol/ L 3.5-5. 1 Not Available [facility] [place] [facility] (Lab) [address] [place], [address], 03/05/2023 13:00:55 03/05/20 23 03/05/2023 COMPR EHENS PATRICIA METAB OLIC PANEL chloride 104 mmol/ L 98-107 Not Available [facility] [place] [facility] (Lab) [address] [place], [address], 03/05/2023 13:00:55 03/05/20 23 03/05/2023 COMPR EHENS PATRICIA METAB OLIC PANEL carbon dioxide 29 mmol/ L 22-30 Not Available [facility] (Lab) [address] [facility] [place], [address], 03/05/2023 13:00:55 03/05/20 23 03/05/2023 COMPR EHENS PATRICIA METAB OLIC PANEL anion gap 11.5 mmol/ L 14-22 low Not Available [facility] [place] [facility] (Lab) [address] [facility] [place], [address], 03/05/2023 13:00:55 03/05/20 23 03/05/2023 COMPR EHENS PATRICIA METAB OLIC PANEL glucose 91 mg/dL 70-99 Not Available [facility] (Lab) [address] [place], [address], 03/05/2023 13:00:55 03/05/20 23 03/05/2023 COMPR EHENS PATRICIA METAB OLIC PANEL BUN 18 mg/dL 8-19 Not Available [facility] (Lab) [address] [place], [address], 03/05/2023 13:00:55 03/05/20 23 03/05/2023 COMPR EHENS PATRICIA METAB OLIC PANEL creatinine 0.74 mg/dL 0.66-1 .25 Not Available [facility] (Lab) [address] [place], [address], 03/05/2023 13:00:55 03/05/20 23 03/05/2023 COMPR EHENS PATRICIA METAB OLIC PANEL GFR >60 Refer ence Range : [place] ge GFR Healt hy Adult : >60 mL/mi n/1.7 3 m2 Chron ic Kidne y Disea se: 15-60 mL/mi n/1.7 3 m2 Kidne y Failu re: <15/m L/min /1.73 m2 www.n iddk. nih.g ov The MDRD study equat ion has not been valid ated in child corazon <18 years of age; pregn ant women ; the elder ly >85 years of age; or in some racia l or ethni c subgr oups, such as Hispa nics. Outsi de the valid ated pb eters , estim ated GFR is less accur ate, requi ring clini denis judgm ent on a case- by-ca se basis . Clini denis inter preta tion for other races and ages must be made by the clini lizz. The MDRD study equat ion has not been valid ated for the evalu ation of serum creat inine relat ed to nutri sara l statu s or medic ation usage . For perso ns <18 years of age, a pedia tric GFR calcu lator is avail able on the [facility] websi te: https ://seth mccarthy.adelina sykes.o rg/pr ofess ional s/kdo qi/gf r_cal culat or Not Available [facility] (Lab) [address] [place], [address], 03/05/2023 13:00:55 03/05/20 23 03/05/2023 COMPR EHENS PATRICIA METAB OLIC PANEL alkaline phosphatase 82 U/L 38-126 Not Available [facility] [place] [facility] (Lab) [address] [place], [address], 03/05/2023 13:00:55 03/05/20 23 03/05/2023 COMPR EHENS PATRICIA METAB OLIC PANEL alanine aminotransfe rase 55 U/L 0-35 high Not Available [facility] (Lab) [address] [place], [address], 03/05/2023 13:00:55 03/05/20 23 03/05/2023 COMPR EHENS PATRICIA METAB OLIC PANEL aspartate aminotransfe rase 40 U/L 15-37 high Not Available [facility] (Lab) [address] [place], [address], 03/05/2023 13:00:55 03/05/20 23 03/05/2023 COMPR EHENS PATRICIA METAB OLIC PANEL bilirubin, total 0.50 mg/dL 0.20-1 .30 Not Available [facility] (Lab) [address] [place], [address], 03/05/2023 13:00:55 03/05/20 23 03/05/2023 COMPR EHENS PATRICIA METAB OLIC PANEL calcium 9.7 mg/dL 8.4-10 .2 Not Available [facility] (Lab) [address] [place], [address], 03/05/2023 13:00:55 03/05/20 23 03/05/2023 COMPR EHENS PATRICIA METAB OLIC PANEL total protein 7.1 g/dL 6.3-8. 2 Not Available [facility] (Lab) [address] [place], [address], 03/05/2023 13:00:55 03/05/20 23 03/05/2023 COMPR EHENS PATRICIA METAB OLIC PANEL albumin 4.2 g/dL 3.4-5. 0 Not Available [facility] (Lab) [address] [place], [address], 03/05/2023 13:00:55 03/05/20 23 03/05/2023 COMPR EHENS PATRICIA METAB OLIC PANEL globulin 2.9 g/dL 2.6-4. 2 Not Available [facility] (Lab) [address] [place], [address], 03/05/2023 13:00:55 03/05/2003/05/2023 COMPR EHENS PATRICIA METAB OLIC PANEL A/G ratio 1.4 ratio 1.0-2. 0 Not Available [facility] (Lab) [address] [place], [address], 03/05/2023 13:00:55 03/05/2003/05/2023 LIPID PANEL cholesterol 233 mg/dL 140-19 9 high NIH GIOVANY NSUS RECOM MENDA TION FOR JAMES STERO L: ADULT CHILD LOW RISK: <200 <170 BORDE RLINE : <200- 239 ----- HIGH RISK: >240 >200 Not Available [facility] (Lab) [address] [place], [address], 03/05/2023 13:00:59 03/05/2003/05/2023 LIPID PANEL triglyceride s 52 mg/dL 0-150 NIH GIOVANY NSUS REPOR T RECOM MENDA TION FOR TRIGL YCERI UNRULY: ADULT CHILD LOW RISK: <150 ----- BODER LINE: 150-1 99 ----- HIGH RISK: >200 ----- Not Available [facility] (Lab) [address] [place], [address], 03/05/2023 13:00:59 03/05/2003/05/2023 LIPID PANEL HDL cholesterol 87 mg/dL 40- Not Available [facility] [place] [facility] (Lab) [address] [place], [address], 03/05/2023 13:00:59 03/05/2003/05/2023 LIPID PANEL LDL cholesterol, calculated 136 mg/dL 0-130 high NIH GIOVANY NSUS REPOR T RECOM MENDA TIONS FOR LDL: ADULT CHILD LOW RISK <130 <110 (OPTI MAL LDL) <100 ----- BORDE RLINE : 130-1 59 ----- HIGH RISK: >160 >130 A TRIGL YCERI DE RESUL T >400 INVAL IDATE S THE CALCU LATIO N FOR LDL FRACT IONAT ION - THE LDL RESUL T WILL NOT BE REPOR JAVIER. Not Available [facility] (Lab) [address] [place], [address], 03/05/2023 13:00:59 03/05/2003/05/2023 T4 FREE free T4 1.31 NG/dL 0.78-2 .19 Not Available [facility] (Lab) [address] [place], [address], 03/05/2023 13:05:56 03/05/2003/05/2023 T3 FREE free T3 2.8 pg/mL 2.77-5 .27 Not Available [facility] (Lab) [address] [place], [address], 03/05/2023 13:06:01 03/05/2003/05/2023 VITAM IN D 25-HY DROXY vd25oh 65.2 NG/mL 30-100 Vitam in D Statu s: Defic ient: <20 ng/mL Insuf ficie nt: 20-29 ng/mL Suffi cient : 30-10 0 ng/mL Not Available [facility] (Lab) [address] [place], [address], 03/05/2023 14:19:24 03/05/2003/05/2023 TSH thyroid-stim ulating hormone 3.030 uIU/m L 0.465- 4.680 Not Available [facility] (Lab) [address] [place], [address], 03/05/2023 14:19:39 03/05/2003/05/2023 VITAM IN B12 (KASANDRA VERN ) vb12 449 pg/mL 239-93 1 Not Available [facility] (Lab) [address] [place], [address], 03/05/2023 14:23:04 03/05/20 23 03/05/2023 FOLAT E, SERUM /PLAS MA folate >20.0 NG/mL 2.76-2 0.0 Not Available [facility] (Lab) [address] [place], [address], 03/05/2023 14:23:05 03/05/20 23 03/05/2023 HEMOG LOBIN A1C HA1C 5.0 % 4.0-6. 0 Diabe eprla Scree alison Crite ger: <5.7% Consi stent with absen ce of diabe perla 5.7-6 .4% Consi stent with incre ased risk for diabe perla (pred iabet es) >OR=6 .5% Consi stent with diabe perla REFER ENCE: Diabe perla Care 2016, 39(Villavicencio ppl.1 ):s13 -s22 Not Available [facility] (Lab) [address] [place], [address], 03/05/2023 15:06:46 03/05/20 23 03/06/2023 THYRO ID PEROX IDASE (TPO) AB thyroid peroxidase (tpo) Ab 299 IU/mL 0-34 high Perfo rmed at: [facility] [place] [address] Lab Direc tor: Can gross PhD, Phone : [phone] Not Available [facility] (Lab) [address] [place], [address], 03/06/2023 08:18:46 01/20/2001/14/2024 XR, lumba r spine No observ ation record ed. [address] [place], [address], 01/20/2024 15:25:15 01/20/20 24 01/14/2024 XR, thora cic spine , 2 view No observ ation record ed. [facility] [address] [place] [address] [place], [address], 01/20/2024 15:25:16 Result Notes None recorded. Problems Name Problem SNOMED Code Status Onset Date Resolution Date Notes Provider Name and Address Organization Details Recorded Time [place] 727971182 Completed 202110/28/2023 Floresita Sinha APRN [address], [address], [place], [address], [employer] 15:07:51 Hypothyroid ism 04899976 Completed 202104/06/2024 Floresita Sinha APRN [address], [address], [place], [address], [employer] 15:23:43 Liver enzymes level above reference range 081217059 Completed 202110/28/2023 Floresita Sinha APRN [address], [address], [place], [address], [employer] 15:07:55 Hypothyroid ism due to Lary's thyroiditis 540730125 Active 2022 Floresita Sinha APRN [address], [address], [place], [address], [employer] 10:14:53 Osteoporosi s 44280633 Active 2022 Floresita Sinha APRN [address], [address], [place], [address], [employer] 10:15:02 Mixed anxiety and depressive disorder 321945949 Active 2022 Floresita Sinha APRN [address], [address], [place], [address], [employer] 10:14:56 Vitamin D deficiency 35926464 Active 2022 Floresita Sinha APRN [address], [address], [place], [address], [employer] 4 10:15:09 Decreased hearing 323030582 Active 2022 Floresita Sinha APRN [address], [address], [place], [address], [employer] 4 15:07:49 Postmenopau jen osteoporosi s 204169009 Active 2022 Floresita Sinha APRN [address], [address], [place], [address], [employer] 4 15:07:58 Fatigue 73463305 Active 2022 Floresita Sinha APRN [address], [address], [place], [address], [employer] 10:14:38 Skin lesion 21121241 Completed 202210/28/2023 Floresita Sinha APRN [address], [address], [place], [address], [employer] 4 15:08:07 Vitamin B12 deficiency (non anemic) 71746712 Active 2022 Floresita Sinha APRN [address], [address], [place], [address], [employer] 4 10:15:04 Basal cell carcinoma of skin 074194324 Completed 202210/28/2023 Floresita Sinha APRN [address], [address], [place], [address], [employer] 4 15:07:46 Cobalamin deficiency 235686109 Active 2022 Floresita Sinha APRN [address], [address], [place], [address], [employer] 4 10:14:26 Folic acid deficiency 231100521 Active 2022 Floresita Sinha APRN [address], [address], [place], [address], [employer] 10:14:42 Thoracic back pain 330682820 Active 2023 Floresita Sinha APRN [address], [place], [address], [employer] 4 13:36:27 Attention deficit hyperactivi ty disorder 484584055 Active 2023 Floresita Sinha APRN [address], [place] [address], [place], [address], [employer] [facility] 4 10:46:38 Low back pain 643730794 Active 2023 Floresita Sinha DENTAL PROSTHETIST [address], [place], [address], [employer] [facility] [employer] 4 10:58:52 Degeneratio n of interverteb ral disc 59371904 Active 2023 Floresita Sinha APRN [address], [place] [address], [place], [address], [employer] [facility] [employer] 15:04:36 Hearing difficulty 146953907 Active 2023 Floresita Sinha APRN [address], [place] [address], [place], [address], [employer] 4 11:28:11 Problem Notes None recorded. Procedures Surgical History Date Name Laterality Status Provider Name and Address Organization Details Recorded Time 03/04/20 23 excision of basal cell carcinoma completed Jennifer Balderas MA AR [employer] [facility] [employer] 03/05/2023 10:56:26 12/20/19 22 Cholecystectomy completed Not Available [facility] 05/23/2022 01:04:19 Imaging Results Imaging Date Name Status LastModified by Organiz ation Details LastModified Time 01/14/2024 XR, lumbar spine completed [address] [place], [address], 01/20/2024 15:25:15 01/14/2024 XR, thoracic spine, 2 view completed [address] [place], [address], 01/20/2024 15:25:16 Procedure Notes None recorded. Medical Equipment None Reported. Allergies Allergen ID Allergen Name Allergen Category Reaction Reaction Severity Criticality Documentation Date Start Date Code Code System Note Provider Name and Address Organization Details Recorded Time 37633 No known allergy (situatio n) Not available Not available Not available Not available 07/25/2023 [id number] SNOMED Floresita Ernestine, DENTAL PROSTHETIST [address] [facility], [place], [address], [facility] [employer] 12:01:24 No known drug allergies Medications Name Sig Start Date Stop Date Status Note LastModified by Organization Details LastModified Time valacyclovi r 1 gram tablet TAKE 1 TABLET BY MOUTH EVERY 12 HOURS FOR 7 DAYS active Not Available Not Available No t Available Synthroid 125 mcg tablet Take 1 tablet every day by oral route, for Hypothyro idism. 04/06 completed Not Available Not Available Not Available dextroamphe tamine-amph etamine 10 mg tablet Take 1 tablet every day by oral route as directed. 04/06 completed Not Available Not Available Not Available Synthroid 100 mcg tablet one tablet daily x 90 days 04/09 completed Not Available Not Available Not Available venlafaxine ER 150 mg capsule,ext ended release 24 hr Take 1 capsule every day by oral route. active Not Available Not Available No t Available Cytomel 5 mcg tablet Take 1 tablet every day by oral route. active Not Available Not Available No t Available oxycodone-a cetaminophe n 5 mg-325 mg tablet TAKE 1 TABLET BY MOUTH EVERY 4 TO 6 HOURS NEEDED 02/06 completed Not Available Not Available Not Available cyanocobala min (vit B-12) 1,000 mcg/mL injection solution Inject 1 mL every week by subcutane ous route in the morning for 90 days. 07/22 completed Not Available Not Available Not Available Synthroid 88 mcg tablet Take 1 tablet every day by oral route. active Not Available Not Available No t Available diclofenac sodium 75 mg tablet,parag yed release Take 1 tablet twice a day by oral route as directed. 04/06 completed Not Available Not Available Not Available folic acid 1 mg tablet Take 1 tablet every day by oral route in the morning for 90 days. 04/06 completed Not Available Not Available Not Available levothyroxi ne 112 mcg tablet TAKE 1 TABLET BY MOUTH EVERY OTHER DAY IN THE MORNING (alternat e with 100mcg dose) 08/27 completed Not Available Not Available Not Available escitalopra m 5 mg tablet Take 1 tablet every day by oral route. active Not Available Not Available No t Available ibuprofen 01/13 completed Not Available Not Available Not Available Vitamin B12 04/06 completed Not Available Not Available Not Available Lomaira 8 mg tablet TAKE 1 TABLET BY MOUTH EVERY DAY IN THE MORNING 12/27 completed Not Available Not Available Not Available mecobalamin (vitamin B12) 10,000 mcg solution for injection Take 0.01 g every 2 weeks by injection route in the morning for 90 days. 07/22 completed Not Available Not Available Not Available Vitals Date Recorded Body height Body mass index (BMI) Body weight Body temperature Heart rate Oxygen saturation Oxygen saturation in Arterial blood by Pulse oximetry Systolic blood pressure Diastolic blood pressure Provider Name and Address Organization Details Last Updated DateTime 3 172.72 cm 21.7 kg/m2 19462.7 1 g 97.4 [degF] 80 /min 100 % 100 % 126 mm[Hg] 72 mm[Hg] Jennifer Balderas MA [facility] [employer] 3 10:58:03 Date Recorded Body height Body mass index (BMI) Body weight Body temperature Heart rate Oxygen saturation Oxygen saturation in Arterial blood by Pulse oximetry Systolic blood pressure Diastolic blood pressure Provider Name and Address Organization Details Last Updated DateTime 4 172.72 cm 22.2 kg/m2 07587.4 9 g 97.3 [degF] 70 /min 99 % 99 % 140 mm[Hg] 68 mm[Hg] Rosaura Mccormick MA [facility] [employer] 4 10:05:27 Date Recorded Body height Body mass index (BMI) Body weight Body temperature Heart rate Oxygen saturation Oxygen saturation in Arterial blood by Pulse oximetry Pain severity - 0-10 verbal numeric rating [Score] - Reported Systolic blood pressure Diastolic blood pressure Provider Name and Address Organization Details Last Updated DateTime 4 172.72 cm 21.4 kg/m2 63458.5 2 g 96.7 [degF] 75 /min 98 % 98 % 7 130 mm[Hg] 70 mm[Hg] Rosaura Mccormick MA [facility] [employer] [facility] 4 10:22:30 Date Recorded Body height Body mass index (BMI) Body weight Body temperature Heart rate Oxygen saturation Oxygen saturation in Arterial blood by Pulse oximetry Pain severity - 0-10 verbal numeric rating [Score] - Reported Systolic blood pressure Diastolic blood pressure Provider Name and Address Organization Details Last Updated DateTime 4 172.72 cm 21.1 kg/m2 21014.3 4 g 98.2 [degF] 78 /min 97 % 97 % 5 128 mm[Hg] 74 mm[Hg] Rosaura Mccormick MA [facility] [employer] [facility] 4 11:11:00 Date Recorded Body height Body mass index (BMI) Body weight Body temperature Heart rate Oxygen saturation Oxygen saturation in Arterial blood by Pulse oximetry Pain severity - 0-10 verbal numeric rating [Score] - Reported Systolic blood pressure Diastolic blood pressure Provider Name and Address Organization Details Last Updated DateTime 5 172.72 cm 20.8 kg/m2 04012.1 5 g 97.7 [degF] 84 /min 99 % 99 % 0 118 mm[Hg] 72 mm[Hg] Rosaura Mccormick MA [facility] [employer] [facility] 5 15:13:03 Social History Question Answer Notes LastModified by Organizat ion Details LastModified Time Tobacco Smoking Status Former Smoker ALBAN Prabhakar, [facility] [employer] [facility] 03/05/2023 10:52:48 What Is Your Level Of Alcohol Consumption? Occasional [id number] Information not available 05/23/2022 Do You Wear A Helmet When Biking? Yes Information not available 03/05/2023 What Is Your Level Of Caffeine Consumption? Moderate [id number] Information not available 05/23/2022 In The 14 Days Before Symptom Onset, Have You Had Close Contact With A Laboratory-confi rmed COVID-19 While That Case Was Ill? No [email or web address] Information not available 03/05/2023 In The 14 Days Before Symptom Onset, Have You Had Close Contact With A Person Who Is Under Investigation For COVID-19 While That Person Was Ill? No [email or web address] Information not available 03/05/2023 Are You Currently Employed? No Information not available 01/14/2024 What Type Of Diet Are You Following? REGULAR [id number] Information not available 05/23/2022 What Is The Highest Grade Or Level Of School You Have Completed Or The Highest Degree You Have Received? [id number] [email or web address] Information not available 03/05/2023 Have There Been Any Changes To Your Family Or Social Situation? Yes [email or web address] Information not available 03/05/2023 What Is The Fluoride Status Of Your Home? Unknown [email or web address] Information not available 03/05/2023 When Did You Quit Smoking? 16+yearssincelastci dawood Information not available 03/05/2023 Are There Any Guns Present In Your Home? No [email or web address] Information not available 03/05/2023 Do You Use Insect Repellent Routinely? No [email or web address] Information not available 03/05/2023 Where Do You Live? SingleLevelHouse [email or web address] Information not available 03/05/2023 What Was The Date Of Your Most Recent Tobacco Screening? 04/06/2024 Information not available 04/06/2024 How Many Children Do You Have? 1 Information not available 01/14/2024 Do You Have Any Pets? Yes [email or web address] Information not available 03/05/2023 What Is Your Relationship Status? [id number] Information not available 05/23/2022 Do You Use Your Seat Belt Or Car Seat Routinely? Yes [email or web address] Information not available 03/05/2023 Do You Have Smoke And Carbon Monoxide Detectors In Your Home? Yes [email or web address] Information not available 03/05/2023 Are You Passively Exposed To Smoke? No [email or web address] Information not available 03/05/2023 Are There Any Smokers In Your House? No [email or web address] Information not available 03/05/2023 Do You Feel Stressed (tense, Restless, Nervous, Or Anxious, Or Unable To Sleep At Night)? [id number] [email or web address] Information not available 03/05/2023 Do You Use Any Illicit Or Recreational Drugs? No [email or web address] Information not available 03/05/2023 Do You Use Sunscreen Routinely? No [email or web address] Information not available 03/05/2023 Have You Recently Traveled Abroad? No [email or web address] Information not available 03/05/2023 Do You Have Any Dietary Restrictions? No [email or web address] Information not available 03/05/2023 Do You Or Have You Ever Used Any Other Forms Of Tobacco Or Nicotine? No [email or web address] Information not available 03/05/2023 Sex: Female Functional Status Question Answer Note LastModified by Organizat ion Details LastModified Time What is your exercise level? Occasional [id number] Information not available 05/23/2022 Mental Status None recorded. Family History Relationship Description Onset Age of this Age Resolved Age Notes LastModified by Organization Details LastModified Time Maternal Grandmother Malignant tumor of breast [email or web address] Not available 2023 10:06:58 Maternal Grandfather Cerebrovascu lar accident [email or web address] Not available 03/2023 10:07:33 Paternal Grandmother Alzheimer's disease [email or web address] Not available 2023 10:07:50 Paternal Grandfather Heart disease [email or web address] Not available 2023 10:08:10 Medical History Condition Response NERVE DISEASE N BLINDNESS N RHEUMATIC FEVER N KIDNEY STONES N BLADDER PROBLEMS N MRSA N OTHER # 1 N POLIO N LUNG DISEASE/DISORDER N HISTORY OF DRUG ABUSE N RADIATION / CHEMOTHERAPY N COPD N Other # 2 N BLOOD DISEASES N EAR OR HEARING PROBLEMS N MUMPS N SHINGLES N DEPRESSION (INCLUDING POST ) N BOWEL PROBLEMS N STROKE/TIA N ULCERS N BENIGN PROSTATIC HYPERPLASIA N MEASLES N HYPOTENSION N MYOCARDIAL INFARCTION N OBESITY N GERD/NAUSEA N ANEURYSM N URINARY/BLADDER/KIDNEY PROBLEMS N CORONARY ARTERY DISEASE (CAD) N ADDICTION CONCERNS N Impotence N ENDOMETRIOSIS N USE OF BLOOD THINNERS N SKIN PROBLEMS N GASTROINTESTINAL DISORDER N PERIPHERAL VASCULAR DISEASE N MUSCLE,JOINT OR BONE PROBLEMS N GASTROINTESTINAL BLEEDING N BLOOD CLOTS N ASTHMA N CATARACTS N ERECTILE DYSFUNCTION N VARICOSITIES N GI PROBLEMS N Low Testosterone N INFERTILITY N AIDS/HIV N CHEMOTHERAPY / RADIATION N LIVER DISEASE N MALE HYPOGONADISM N HYPERTENSION N Deficiency N TOURETTE'S N ANXIETY DISORDER N BLOOD TRANSFUSION N ANEMIA/BLOOD DISORDER N CHRONIC EAR INFECTIONS N BRONCHITIS N TUBERCULOSIS N GLAUCOMA N FOOT PROBLEM N DIVERTICULITIS N SLEEP APNEA N CHICKENPOX N INFECTIOUS DISEASE N PROSTATE N HEART ARRHYTHMIA N INSOMNIA N HIGH CHOLESTEROL / HYPERLIPIDEMIA N EYE PROBLEMS N HYPERTHYROIDISM N EDEMA N CHRONIC PAIN SYNDROME N HYPOTHYROIDISM Y CAROTID BLOCKAGE N CONSTIPATION N BACK / NECK PROBLEMS N HAVE YOU BEEN HOSPITALIZED OR SEEN IN [facility] IN THE PAST YEAR ? N ATHEROSCLEROSIS N BREAST PROBLEMS N DIALYSIS N ECZEMA N OSTEOPOROSIS N ARTHRITIS N NO SIGNIFICANT PAST MEDICAL HISTORY N APPENDICITIS N DIABETES, TYPE N BAD TEETH N ENT N HEARTBURN / REFLUX N AUTISM SPECTRUM DISORDER (ASD) N HEPATITIS / LIVER DISEASE N GOUT N SLEEP DISORDER N ALZHEIMER'S DISEASE N Brain Problems N DEMENTIA N HERPES N SEIZURES/EPILEPSY N HEADACHES/MIGRAINES N VASCULAR DISEASE N PACEMAKER N Blood Disorder N DIZZINESS N HEART DISEASE/HEART PROBLEMS N KIDNEY DISEASE N MULTIPLE SCLEROSIS N CANCER: SPECIFY N CARDIAC ARRHYTHMIA N ATRIAL FIBRILLATION N Gall Stones N PULMONARY EMBOLISM N AUTOIMMUNE DISEASE N Gynecological History Statement/Question Response How many live births 1 Date of Last Colonoscopy Date of Last Mammogram Date of LMP Most Recent Bone Density Date of Last Pap Current Control Method None Obstetrics History GPAL:G 5 P 1 0 4 1 Type Value Multiple Births 0 Full Term 1 Induced 0 Spontaneous 4 Premature 0 Living 1 Ectopics 0 Total 5 Immunizations Vaccine Type Date Status Note Provider Nam e and Address Organization Details Recorded Time COVID-19, mRNA, LNP-S, PF, 100 mcg/0.5mL dose or 50 mcg/0.25mL dose 03/13/2021 completed Floresita Sinha APRN [address] [facility], [address] [place] [address], [place], [address], [facility] [employer] [facility] 07/25/2023 12:00:56 COVID-19, mRNA, LNP-S, PF, 30 mcg/0.3 mL dose 07/20/2020 completed Floresita Sinha APRN [address] [facility], [facility] [address], [place], [address], [facility] [employer] [facility] 07/25/2023 12:00:56 COVID-19, mRNA, LNP-S, PF, 30 mcg/0.3 mL dose 06/28/2020 completed Floresita Sinha APRN [address], [place], [address], [employer] [facility] 07/25/2023 12:00:56 COVID-19, mRNA, LNP-S, bivalent, PF, 30 mcg/0.3 mL dose 04/28/2022 completed Floresita Sinha APRN [address], [address], [place], [address], [facility] [employer] [facility] 07/25/2023 12:00:56 COVID-19, mRNA, LNP-S, PF, 100 mcg/0.5mL dose or 50 mcg/0.25mL dose 10/18/2021 completed Floresita Sinha APRN [address], [place], [address], [employer] [facility] [employer] [facility] 01/14/2024 10:36:58 Past Encounters Encounter ID Performer Location Encounter Start Date Encounter Closed Date Diagnosis/Indication Diagnosis SNOMED-CT Code Diagnosis ICD10 Code Diagnosis Note [id number] [facility] Internal [facility] [place] [address] [place] [address] 09/26/2021 00:00:00 09/26/2021 13:59:37 [id number] [facility] Internal Med [place] [address] [place] [address] 11/14/2021 00:00:00 11/14/2021 17:17:25 [id number] [facility] General [facility] [address], [facility] [address] [place] [address] 12/06/2021 00:00:00 12/06/2021 14:29:18 [id number] [facility] General Surgery [address] [facility] [address] [place] [address] 01/01/2022 00:00:00 01/01/2022 12:05:38 [id number] [facility] Internal Med [place] [address] [place] [address] 02/06/2022 00:00:00 02/06/2022 15:08:32 [id number] [facility] Endo [place] [address] [place] [address] 03/04/2022 00:00:00 03/04/2022 15:48:15 [id number] Yasmin Lópeztonya, ELECTRICAL DESIGN ENGINEER-C [facility] Internal Med T[place] goncalves [address] [facility] [place] [address] 08/28/2022 10:45:55 08/28/2022 11:06:31 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 Horton Osteoporosis 06770634 M8 1.0 not currently on meds, now following endodiscus sed med options- she declines all, is trying a vibration machine to help with her bone strengthre commend calcium, vitamin d, weight bearing exercise 2-3x per week Mixed anxi ety and depressive disorder 865273346 F41.8 she self stopped the lexaproCal l office if any change in mood or behaviorSh e declines psychiatry referralCo unseling recommende d -name /numbers provided to patient previously Decreased hearing 589232 001 H91.90 get appointmen t with audiologis t- has referral Vitamin D deficiency 347 10191 E55.9 on supplement Ex-smoker 6478569 Z87.89 1 does not qualify for LDCT- quit smoking over 20 years ago Hepatitis C antibody detected 697382816 Z86.19 PCR was negative Liver enzy mes level above reference range 632070041 R74.01 now normalized on labs 08/2022 post-james cystectomy Screening mammography 24 440777 Z12.31 Skin lesion 75383313 L98 .9 get appt with derm for skin check Referral needed [id number] 9 Z76.89 Adult heal th examination 263592315 Z00.01 Depression screening 171 549442 Z13.31 Normal bod y mass index 77399409 Z68.21 recommend healthy, well balanced mealsfocus on lean meats, fresh vegetables , fresh fruits, whole grainsredu ce fast/proce ssed foods or eating out to no more than 1-2 times per weekaim to get 30 min of exercise most days of the week- walking is a great choicealso recommend resistance training 2-3 times per week [id number] Jennie Horton MD [facility] Endo [place] [address] [place] [address] 08/27/2022 09:28:17 08/27/2022 10:02:28 Hypothyroidism 04344295 E03.9 TSH and FT4 in ideal range from recent labs this month- continue on synthroid 100 mcg daily. She was reminded to take her synthroid on empty stomach with glass of water and wait one hour to eat or have her coffee in morning and up to 4 hours if ever taking any heartburn or reflux medication s to help optimize absorption . Discussed paleo like diet with restrictio n of GMOs to help with energy and to optimize absorption of vitamins and minerals and reduce inflammati on. Postmenopa usal osteoporosis 623424273 M81.0 Send for full panel prior to labwork to screen for parathyroi d disease. repeat bone density in summer 2023. Fatigue 49742252 R53.83 Trial on low dose lomaria 8 mg in morning as patient having fatigue and trouble focusing in afternoon. She has ideal BMI and she feels she has a little ADHD and trouble with goal orientatio n- will trial on lowest dose and patient aware she needs to come in for BP testing every few months. Spent up to 26 minutes preparing to see the patient (eg, review of tests), obtaining and/or reviewing separately obtained history, performing a medically appropriat e examinatio n and evaluation , counseling and educating the patient, ordering medication s, tests, along with documentin g clinical informatio n in the electronic health record, independen tly interpreti ng results and communicat ing results to the patient. RTC in 6 months. Patient was provided a handwritte n lab order which contains our fax number. If she chooses to go outside of the [facility] system to obtain labwork she was advised to provide our fax number and my informatio n to the lab she will be obtaining labwork from in order to have her labs properly forwarded over for me to review so there is no loss of follow up due to use of outside network. She was also advised to contact our clinic informing us that she has completed her labwork so we are aware we will need to reach out to the appropriat e laboratory to request her results be forwarded to us so I might have the ability to review and make further medical decision making in her case. She voiced understand ing. [id number] Jennie Horton MD [facility] Endo [place] [address] [place] [address] 12/27/2022 09:26:52 12/27/2022 09:52:58 Hypothyroidism 57766139 E03.9 TSH and FT4 in ideal range from recent labs this month- continue on synthroid 100 mcg daily. She was reminded to take her synthroid on empty stomach with glass of water and wait one hour to eat or have her coffee in morning and up to 4 hours if ever taking any heartburn or reflux medication s to help optimize absorption . Discussed paleo like diet with restrictio n of GMOs to help with energy and to optimize absorption of vitamins and minerals and reduce inflammati on. Vitamin B1 2 deficiency (non anemic) 42089923 E53.8 Trial on B12 injections as patient having continued fatigue and levels low normal range. Spent up to 25 minutes preparing to see the patient (eg, review of tests), obtaining and/or reviewing separately obtained history, performing a medically appropriat e examinatio n and evaluation , counseling and educating the patient, ordering medication s, tests, along with documentin g clinical informatio n in the electronic health record, independen tly interpreti ng results and communicat ing results to the patient. Patient can be followed by PCP - she/he is aware of my resignatio n and last day of January 03. If needed his/her PCP can refer patient to another endocrinol ogist in the area. All questions /concerns answered and refills necessary at visit today. 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 Branch needs new endo referralre ferral placed for Dr. Lizzette Riberaroid from endo Osteoporosis 62637748 M8 1.0 not currently on meds, now following endodiscus sed med options- she declines all, is trying a vibration machine to help with her bone strengthre commend calcium, vitamin d, weight bearing exercise 2-3x per week Mixed anxi ety and depressive disorder 350774900 F41.8 she self stopped the lexaproCal l office if any change in mood or behaviorSh e declines psychiatry referralCo unseling recommende d -name /numbers provided to patient previously Decreased hearing 577687 001 H91.90 get appointmen t with audiologis t- has referral Vitamin D deficiency 347 66580 E55.9 on supplement Ex-smoker 8292987 Z87.89 1 does not qualify for LDCT- quit smoking over 20 years ago Hepatitis C antibody detected 554062211 Z86.19 PCR was negative Liver enzy mes level above reference range 410674634 R74.01 now normalized on labs 08/2022 post-james cystectomy Normal bod y mass index 39650464 Z68.21 recommend healthy, well balanced mealsfocus on lean meats, fresh vegetables , fresh fruits, whole grainsredu ce fast/proce ssed foods or eating out to no more than 1-2 times per weekaim to get 30 min of exercise most days of the week- walking is a great choicealso recommend resistance training 2-3 times per week Basal cell carcinoma of skin 486305507 C44.91 following dermatolog y at [facility]/p excision Hyperlipid emia screening 868737588 Z13.220 Diabetes m ellitus screening 191672583 Z13.1 Cobalamin deficiency 190 588723 E53.8 on injections from endo Folic acid deficiency 19 3523625 E53.8 on supplement Fatigue 33342471 R53.83 labs as abovenew endo referral placed as above [id number] Floresita Sinha APRN [facility] Internal Med yTshawn goncalves [address] [place] [address] 07/23/2023 09:57:34 07/23/2023 10:30:25 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 535991476 E06.3 Hypothyroidism 00020796 E03.9 Vitamin B1 2 deficiency (non anemic) 43734331 E53.8 Osteoporosis 36206570 M8 1.0 Cobalamin deficiency 190 073605 E53.8 Mixed anxi ety and depressive disorder 808820189 F41.8 [id number] Florestia Sinha APRN [facility] Internal Med [place] [address] [facility] , [facility] [place] [address] 01/14/2024 10:09:02 01/14/2024 10:53:09 Thoracic back pain 559936535 M54.6 Attention deficit hyperactivity disorder 171876677 F90.9 [id number] Floresita Sinha APRN [facility] Primary Care Adina goncalves [address] [facility] [address] [place] [address] 01/28/2024 10:56:41 01/28/2024 12:02:14 Degeneration of intervertebral disc 64195329 M51.9 Hearing difficulty 01288 0000 H91.93 [facility] [id number] E03.9 [id number] Laquita Baker NP [facility] [address] [address] 02/04/2024 11:54:45 02/05/2024 14:10:32 [id number] Laquita Baker NP [facility] [address] [address] 03/03/2024 12:02:38 03/03/2024 12:42:51 [id number] Floresita Sinha APRN [facility] Internal Med [facility] [address], [facility] [address] [place] [address] 04/06/2024 14:58:36 04/06/2024 15:28:04 [facility] 81548753 E03.9 [id number] Laquita Baker NP [facility] [address] [address] 03/31/2024 11:58:17 03/31/2024 12:51:14 [id number] Laquita Baker NP [facility] [address] [address] 04/28/2024 12:02:05 04/28/2024 14:24:44 [id number] Laquita Baker NP [facility] [address] [place] [address] 05/26/2024 11:15:16 05/26/2024 12:27:25 Health Concerns Section Related Observation LastModified by Organization Detai ls LastModified Time None Recorded Concern Status LastModified by Organization Details LastModified Time None Recorded Advance Directives Directive None Recorded Payers Encounter Date Sequence Insurance Name Policy Number Policy Nair Covered Member ID Nair Member ID Guarantor Name 03/05/2023 1 [facility] (MEDICAID HMO) [id number] Cherelle Salter [id number] Cherelle Salter 07/23/2023 1 [facility] (MEDICAID HMO) [id number] Cherelle Salter [id number] Cherelle Salter 01/14/2024 1 [facility] (MEDICAID HMO) [id number] Cherelle Salter [id number] Cherelle Salter 01/28/2024 1 [facility] (MEDICAID HMO) [id number] Cherelle Salter [id number] Cherelle Salter 04/06/2024 1 [facility] (MEDICAID HMO) [id number] Cherelle Salter [id number] Cherelle [place] Notes Date Note Type Note Provider Name and Address Organization Details Recorded Time 03/05/2023 text/html Cat presents tod ay for follow up. She continues to struggle with the brain fog and fatigue associated with her Lary's. She was seeing Dr. Horton for endocrinology who has left the practice. She needs a new endocrinology referral. She also reports that she is working to file disability, she will be seeing a disability physician soon. She continues to refuse medication for the osteoporosis. She reports she did see Dermatology over at [facility] yesterday. They removed basal cell carcinoma on her chest. She reports she follows up again with them in July. She is due for labs. She declines flu vaccine today. She reports her mammogram is scheduled [facility] for April. Yasmin Sanchez, ELECTRICAL DESIGN ENGINEER-C [address], [place], [address], [facility] [employer] 03/05/2023 11:20:29 07/23/2023 text/html Cat presents justo duran to establish care. She states that she is in need of an squirrel man, as hers has left the area, for her Lary's. She was previously referred to Dr. Broussard but she has not seen them. 03/05/2023 presents today for follow up. She continues to struggle with the brain fog and fatigue associated with her Lary's. She was seeing Dr. Horton for endocrinology who has left the practice. She needs a new endocrinology referral. She also reports that she is working to file disability, she will be seeing a disability physician soon. She continues to refuse medication for the osteoporosis. She reports she did see Dermatology over at [facility] yesterday. They removed basal cell carcinoma on her chest. She reports she follows up again with them in July. She is due for labs. She declines flu vaccine today. She reports her mammogram is scheduled today [facility] for April. Floresita Sinha, DENTAL PROSTHETIST [address], [address], [place], [address], [facility] [employer] 07/23/2023 10:28:19 01/14/2024 text/html Doris presents justo duran due to pain in her upper/mid back. She states that she is having dull bone pain . She states that since her last she states that she is having ADHD. She states that the SSRIs do not work. She is tearful and state that she is not able to concentrate and it is affecting her home life. 07/23/2023at presents today to establish care. She states that she is in need of an squirrel man, as hers has left the area, for her Lary's. She was previously referred to Dr. Broussard but she has not seen them. 03/05/2023 presents today for follow up. She continues to struggle with the brain fog and fatigue associated with her Lary's. She was seeing Dr. Horton for endocrinology who has left the practice. She needs a new endocrinology referral. She also reports that she is working to file disability, she will be seeing a disability physician soon. She continues to refuse medication for the osteoporosis. She reports she did see Dermatology over at [facility] yesterday. They removed basal cell carcinoma on her chest. She reports she follows up again with them in July. She is due for labs. She declines flu vaccine today. She reports her mammogram is scheduled today [facility] for April. Floresita BishopHANNY garrido [address], [place], [address], [employer] 01/14/2024 10:51:17 01/28/2024 text/html Cat presents toyessenia ay for follow up for back pain. Cat states that she was going to physical therapy for the past 4 appointments, she states that she was doing well until evening when her back went out. She states that it has slowly been improving but she states this has been continuous. She states that when her back goes out there is zinging pain and she almost has to crawl. 01/14/2024at presents today due to pain in her upper/mid back. She states that she is having dull bone pain . She states that since her last she states that she is having ADHD. She states that the SSRIs do not work. She is tearful and state that she is not able to concentrate and it is affecting her home life. 07/23/2023at presents today to establish care. She states that she is in need of an squirrel man, as hers has left the area, for her Lary's. She was previously referred to Dr. Broussard but she has not seen them. 03/05/2023at presents today for follow up. She continues to struggle with the brain fog and fatigue associated with her Lary's. She was seeing Dr. Horton for endocrinology who has left the practice. She needs a new endocrinology referral. She also reports that she is working to file disability, she will be seeing a disability physician soon. She continues to refuse medication for the osteoporosis. She reports she did see Dermatology over at [facility] yesterday. They removed basal cell carcinoma on her chest. She reports she follows up again with them in July. She is due for labs. She declines flu vaccine today. She reports her mammogram is scheduled today [facility] for April. Floresita BishopHANNY garrido [address], [place], [address], [employer] 01/28/2024 11:31:40 04/06/2024 text/html Cat presents tod ay for 3 month follow up. She states that her neck and back feel better and she has completed physical therapy. She states that she was sanding the grout in her bathroom and forgot to put her respirator. She states that she was having respiratory symptoms, including chest congestion and persistent cough. She states she went to and received an inhaler that has helped her breathing and relieved the cough. 01/28/2024at presents today for follow up for back pain. Cat states that she was going to physical therapy for the past 4 appointments, she states that she was doing well until evening when her back went out. She states that it has slowly been improving but she states this has been continuous. She states that when her back goes out there is zinging pain and she almost has to crawl. 01/14/2024at presents today due to pain in her upper/mid back. She states that she is having dull bone pain . She states that since her last she states that she is having ADHD. She states that the SSRIs do not work. She is tearful and state that she is not able to concentrate and it is affecting her home life. 07/23/2023at presents today to establish care. She states that she is in need of an squirrel man, as hers has left the area, for her Lary's. She was previously referred to Dr. Broussard but she has not seen them. 03/05/2023at presents today for follow up. She continues to struggle with the brain fog and fatigue associated with her Lary's. She was seeing Dr. Horton for endocrinology who has left the practice. She needs a new endocrinology referral. She also reports that she is working to file disability, she will be seeing a disability physician soon. She continues to refuse medication for the osteoporosis. She reports she did see Dermatology over at [facility] yesterday. They removed basal cell carcinoma on her chest. She reports she follows up again with them in July. She is due for labs. She declines flu vaccine today. She reports her mammogram is scheduled today [facility] for April. Floresita Sinha, HANNY [address], [place], [address], [place] [facility] [employer] 04/06/2024 15:27:22 OBGyn Episode No OBEpisode recorded.
[2024-06-01 13:36] VITALS: BP 124/75; PULSE 76; RESP 16; TEMP 36.1; O2SAT 100
== END 2024-06-01 13:38 | disposition home or self-care (01) ==
PROVIDERS: Emergency Provider Physician Assistant
DX: S32.502A Unspecified fracture of left pubis, initial encounter for closed fracture (principal); E03.9 Hypothyroidism, unspecified; M81.0 Age-related osteoporosis without current pathological fracture; W01.0XXA Fall on same level from slipping, tripping and stumbling without subsequent striking against object, initial encounter
CPT/HCPCS: 72192; 73502; 99284; A9270

== ENCOUNTER 2024-06-21 15:55 | Outpatient (CLI) | payer OTHER, SELFPAY ==
--- NOTE | ~2024-06-21 | MR_ITS ---
EXAMINATION: MR pelvis wo con DATE: 06/21/2024 16:45 INDICATION: Initial encounter for fracture of unspecified part of lumbosacral spine and pelvis TECHNIQUE: Magnetic resonance imaging (MRI) of the sacrum and coccyx was performed without intravenou s contrast. Sequences included sagittal PD-weighted FS FSE, coronal oblique T2-weighted FS FSE, little nal oblique T1-weighted FSE, coronal oblique T2-weighted FSE, oblique axial T2-weighted FS FSE, obliq ue axial T1-weighted FS FSE and oblique axial T1-weighted FSE. COMPARISON: CT dated 06/01/2024 FINDINGS: Prominent marrow edema surrounding a sagittally oriented low signal intensity fracture plane of the l eft sacral ala situated between the sacroiliac joint and the neural foramina. There is more localized marrow edema at the anterior aspect of the right sacroiliac joint but without a clearly defined line ar low signal intensity fracture line suggesting stress reaction. Underlying marrow signal is normal. 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 Mild disc height loss at L4-L5 and moderate disc height loss at L5-S1. Annular fissure and small central disc extrusion at L4-L5 contributing to mild central canal stenosis at this level. There is additional mild central canal stenosis which with small disc bulges at L3-L4 and L5-S1. L5 is partially sacralized on the right. There is moderate low er lumbar facet osteoarthritis. IMPRESSION: 1. Nondisplaced sagittally oriented fracture of the left sacral ala with likely stress reaction witho ut discrete fracture line at the anterior right sacral ala. Reviewed, dictated and finalized at location B. IMPRESSION: 1. Nondisplaced sagittally oriented fracture of the left sacral ala with likely stress reaction without discrete fracture line at the anterior right sacral al a.
--- OUTSIDE RECORDS SUMMARY | 2024-06-21 17:18 | XMS_ITS | Data Portability ---
Author Organization [place] [facility], Main Office Address [address] [place] [address] Assessment Encounter Date Assessment Date Assessment LastModified by Organization Details LastModified Time 03/05/2023 03/05/2023 Cscope- cologuard 10/2021- negative- repeat 10/2024 WWE- referred to [employer]- Vlad Pedroza- 09/2021- has scheduled for Apr at [place] [facility]- 09/2021- osteoporosis, refuses meds WEA-08/28/22 Call office if worse, ER if life threatening illness RTC 6 months and PRN- she plans transfer to [facility] She voices understanding of plan and agrees [email or web address] Not available 03/05/2023 11:19:57 Plan of Treatment Reminders Order Date Submit Date Provider Last Modified By Organization Details Last Modified Time Details Appointments Any 15 2024 01:00P Trista Sinha APRN Not available Not available Not available Lab TSH, serum or plasma [address] - Outpatient Lab, [address] [place] [address], [address], 01/28/2024 12:23:33 vitamin D, 25-hydrox y, total, serum 2023 024 [email or web address] Not available 07/31/2023 11:23:55 TSH + free T4, serum 2023 024 [email or web address] Not available 07/31/2023 11:23:55 CBC w/ auto diff 2023 024 Not available 07/31/2023 11:23:55 lipid panel, blood 2023 024 [email or web address] Not available 07/31/2023 11:23:56 HbA1c (hemoglob in A1c), blood 2023 024 [email or web address] Not available 07/31/2023 11:23:56 CMP, serum or plasma 2023 024 Not available 07/31/2023 11:23:55 vitamin B12 + folate, serum or blood 2023 024 [email or web address] Not available 07/31/2023 11:23:55 vitamin D, 25-hydrox y, total, serum 2022 023 [email or web address] Not available 03/27/2023 13:59:59 CMP, serum or [...] HbA1c (hemoglob in A1c), blood 2022 023 Not available 03/27/2023 14:00:22 vitamin B12 + folate, serum or blood 2022 023 [email or web address] Not available 03/27/2023 14:00:43 Referral neurologi denis surgeon referral - Please call patient to schedule. 2023 024 annmarie [facility] Neurosurgery, [address], [place], [address], 05/12/2024 17:40:[address] referral - Please call patient to schedule. 2023 [facility] Audiology, [address], [place], [address], 02/06/2024 15:58:02 physical therapist referral - Please call patient to schedule. 2023 [facility], [address], [place], [address], 01/16/2024 15:53:21 psychiatr ist referral - Please call patient to schedule. 2023 lanie Baker FRONT CLERK, [address] [facility], [address], [place], [address], 03/15/2024 08:02:56 endocrino logy referral 2023 CAROL De Souza MD, [address], [address], [place], [address], 04/09/2024 16:55:08 endocrino logy referral - Transfer from Dr. Jennie Horton 2022 023 [email or web address] [place], [address], [address], [facility], [place], [address], Ph [phone] 07/16/2023 09:19:10 Procedures None recorded. Surgeries None recorded. Imaging XR, thoracic spine, 2 view 2023 024 [facility], [address] , [place], [address], 01/20/2024 14:11:21 Medication Orders Synthroid 100 mcg tablet 2024 025 [email or web address] [facility] #15866, [address], [place], [id number], 04/09/2024 17:29:21 diclofena c sodium 75 mg tablet,de layed release 2023 [facility] #79916, [address], [place], [id number], 04/06/2024 15:13:52 dextroamp hetamine- amphetami ne 10 mg tablet 2023 024 [facility] #26202, [address], [place], [id number], 04/06/2024 15:13:26 folic acid 1 mg tablet 2023 024 [facility] #34597, [address] [place] [address], [id number], 04/06/2024 15:13:56 Synthroid 100 mcg tablet 2023 024 [email or web address] [facility] #60048, [address] [place] [address], [id number], 04/09/2024 17:29:21 Patient TargetsNo targets recorded. Patient Instructions Encounter Date Encounter Id Patient Instructions Last Modified By Organization Details Last Modified Time 07/23/2023 [id number] Follow up in 6 months and as needed Obtain labs Prescriptions sent to pharmacy Referral to endocrinology-Dr. Leelee De Souza Not available 07/23/2023 10:27:24 01/14/2024 [id number] Follow up on 01/27 Prescription sent to pharmacy Tests: Thoracic xrays Referral: Recommend: Tetanus vaccine Shingles vaccine Not available 01/14/2024 10:48:01 01/28/2024 [id number] Follow up in 3 months and as needed Tests: Complete lab Referral: Referral to neurosurgeon Recommend: Tetanus vaccine Shingles vaccine Not available 01/28/2024 11:31:33 04/06/2024 [id number] Follow up in 6 months Obtain labs [...] Floresita Sinha Internal Medicine, Encounter Date: 01/28/2024 [employer] Referral for Hea ring difficulty Please call patient to schedule. Referring Physician: Floresita Sinha Internal Medicine, Encounter Date: 01/28/2024 Results Created Date Observation Date Name Description Value Unit Range Abnormal Flag Note LastModifiedBy Organization Detail LastModifiedTime 03/05/2003/05/2023 CBC/C OMPLE TE BLD COUNT W/DIF F white blood cells 6.0 x10'3 /uL 4.2-10 .8 Not Available [facility] (Lab) [address] [place], [address], 03/05/2023 12:40:41 03/05/2003/05/2023 CBC/C OMPLE TE BLD COUNT W/DIF F red blood cells 4.21 x10'6 /uL 3.80-5 .20 Not Available [facility] (Lab) [address] [place], [address], 03/05/2023 12:40:41 03/05/20 23 03/05/2023 CBC/C OMPLE TE BLD COUNT W/DIF F hemoglobin 13.4 g/dL 12.0-1 5.6 Not Available [facility] (Lab) [address] [place], [address], 03/05/2023 12:40:41 03/05/20 23 03/05/2023 CBC/C OMPLE TE BLD COUNT W/DIF F hematocrit 41.8 % 35.7-4 5.7 Not Available [facility] (Lab) [address] [place], [address], 03/05/2023 12:40:41 03/05/20 23 03/05/2023 CBC/C OMPLE TE BLD COUNT W/DIF F mean red cell volume 99.3 fL 82.0-9 9.0 high Not Available [facility] (Lab) [address] [place], [address], 03/05/2023 12:40:41 03/05/2003/05/2023 CBC/C OMPLE TE BLD COUNT W/DIF F mean red cell hemoglobin 31.8 pg 27.0-3 3.0 Not Available [facility] (Lab) [address] [place], [address], 03/05/2023 12:40:41 03/05/20 23 03/05/2023 CBC/C OMPLE TE BLD COUNT W/DIF F mean RBC HGB concentratio n 32.1 g/dL 31.0-3 6.0 Not Available [facility] (Lab) [address] [place], [address], 03/05/2023 12:40:41 03/05/20 23 03/05/2023 CBC/C OMPLE TE BLD COUNT W/DIF F red cell distribution width 12.9 % 11.8-1 5.5 Not Available [facility] (Lab) [address] [facility] [place], [address], 03/05/2023 12:40:41 03/05/2003/05/2023 CBC/C OMPLE TE BLD COUNT W/DIF F platelets 208 x10'3 /uL 150-40 0 Not Available [facility] (Lab) [address] [place], [address], 03/05/2023 12:40:41 03/05/2003/05/2023 CBC/C OMPLE TE BLD COUNT W/DIF F mean platelet volume 10.2 fL 9.0-12 .4 Not Available [facility] (Lab) [address] [place], [address], 03/05/2023 12:40:41 03/05/2003/05/2023 CBC/C OMPLE TE BLD COUNT W/DIF F neutrophils 59.7 % 39.0-7 2.0 Not Available [facility] (Lab) [address] [place], [address], 03/05/2023 12:40:41 03/05/20 23 03/05/2023 CBC/C OMPLE TE BLD COUNT W/DIF F lymphocytes 26.8 % 16.0-4 7.0 Not Available [facility] (Lab) [address] [place], [address], 03/05/2023 12:40:41 03/05/20 23 03/05/2023 CBC/C OMPLE TE BLD COUNT W/DIF F monocytes 9.7 % 5.0-12 .0 Not Available [facility] (Lab) [address] [place], [address], 03/05/2023 12:40:41 03/05/20 23 03/05/2023 CBC/C OMPLE TE BLD COUNT W/DIF F eosinophils 2.9 % 1.0-7. 0 Not Available [facility] (Lab) [address] [place], [address], 03/05/2023 12:40:41 03/05/2003/05/2023 CBC/C OMPLE TE BLD COUNT W/DIF F basophils 0.7 % 0.0-2. 0 Not Available [facility] (Lab) [address] [place], [address], 03/05/2023 12:40:41 03/05/2003/05/2023 CBC/C OMPLE TE BLD COUNT W/DIF F immature granulocytes 0.2 % 0.00-0 .50 Not Available [facility] (Lab) [address] [place], [address], 03/05/2023 12:40:41 03/05/2003/05/2023 CBC/C OMPLE TE BLD COUNT W/DIF F neutrophils, absolute count 3.56 x10'3 /uL 1.5-8. 0 Not Available [facility] (Lab) [address] [place], [address], 03/05/2023 12:40:41 03/05/2003/05/2023 CBC/C OMPLE TE BLD COUNT W/DIF F lymphocytes, absolute count 1.60 x10'3 /uL 1.07-3 .43 Not Available [facility] (Lab) [address] [place], [address], 03/05/2023 12:40:41 03/05/20 23 03/05/2023 CBC/C OMPLE TE BLD COUNT W/DIF F monocytes, absolute count 0.58 x10'3 /uL 0.29-0 .99 Not Available [facility] (Lab) [address] [place], [address], 03/05/2023 12:40:41 03/05/20 23 03/05/2023 CBC/C OMPLE TE BLD COUNT W/DIF F eosinophils, absolute count 0.17 x10'3 /uL 0.02-0 .53 Not Available [facility] (Lab) [address] [place], [address], 03/05/2023 12:40:41 03/05/20 23 03/05/2023 CBC/C OMPLE TE BLD COUNT W/DIF F basophils, absolute count 0.04 x10'3 /uL 0.01-0 .08 Not Available [facility] (Lab) [address] [place], [address], 03/05/2023 12:40:41 03/05/2003/05/2023 CBC/C OMPLE TE BLD COUNT W/DIF F immature granulocytes ,absolute 0.01 x10'3 /uL 0.00-0 .05 Not Available [facility] (Lab) [address] [place], [address], 03/05/2023 12:40:41 03/05/2003/05/2023 CBC/C OMPLE TE BLD COUNT W/DIF F nucleated red blood cells 0.0 % -0 Not Available [facility] (Lab) [address] [place], [address], 03/05/2023 12:40:41 03/05/20 23 03/05/2023 CBC/C OMPLE TE BLD COUNT W/DIF F NRBC# 0.00 x10'3 /uL Not Available [facility] (Lab) [address] [place], [address], 03/05/2023 12:40:41 03/05/2003/05/2023 COMPR EHENS PATRICIA METAB OLIC PANEL sodium 140 mmol/ L 137-14 5 Not Available [facility] (Lab) [address] [place], [address], 03/05/2023 13:00:55 03/05/2003/05/2023 COMPR EHENS PATRICIA METAB OLIC PANEL potassium 4.5 mmol/ L 3.5-5. 1 Not Available [facility] (Lab) [address] [place], [address], 03/05/2023 13:00:55 03/05/20 23 03/05/2023 COMPR EHENS PATRICIA METAB OLIC PANEL chloride 104 mmol/ L 98-107 Not Available [facility] (Lab) [address] [place], [address], 03/05/2023 13:00:55 03/05/20 23 03/05/2023 COMPR EHENS PATRICIA METAB OLIC PANEL carbon dioxide 29 mmol/ L 22-30 Not Available [facility] (Lab) [address] [facility] [place], [address], 03/05/2023 13:00:55 03/05/20 23 03/05/2023 COMPR EHENS PATRICIA METAB OLIC PANEL anion gap 11.5 mmol/ L 14-22 low Not Available [facility] (Lab) [address] [facility] [place], [address], 03/05/2023 13:00:55 03/05/20 23 03/05/2023 COMPR EHENS PATRICIA METAB OLIC PANEL glucose 91 mg/dL 70-99 Not Available [facility] (Lab) [address] [place], [address], 03/05/2023 13:00:55 03/05/20 23 03/05/2023 COMPR EHENS PATRICIA METAB OLIC PANEL BUN 18 mg/dL 8-19 Not Available [facility] (Lab) [address] [place], [address], 03/05/2023 13:00:55 03/05/20 23 03/05/2023 COMPR EHENS PATRICIA METAB OLIC PANEL creatinine 0.74 mg/dL 0.66-1 .25 Not Available [facility] (Lab) [address] [place], [address], 03/05/2023 13:00:55 03/05/20 23 03/05/2023 COMPR EHENS PATRICIA METAB OLIC PANEL GFR >60 Refer ence Range : [place] ge GFR Healt hy Adult : >60 [...] lator is avail able on the [facility] websi te: [email or web address] qi/gf r_[email or web address] culat or Not Available [facility] (Lab) [address] [place], [address], 03/05/2023 13:00:55 03/05/20 23 03/05/2023 COMPR EHENS PATRICIA METAB OLIC PANEL alkaline phosphatase 82 U/L 38-126 Not Available [facility] (Lab) [address] [place], [address], 03/05/2023 13:00:55 03/05/20 23 03/05/2023 COMPR EHENS PATRICIA METAB OLIC PANEL alanine aminotransfe rase 55 U/L 0-35 high Not Available [facility] (Lab) [address] [place], [address], 03/05/2023 13:00:55 03/05/20 23 03/05/2023 COMPR EHENS PATRICIA METAB OLIC PANEL aspartate aminotransfe rase 40 U/L 15-37 high Not Available [facility] (Lab) [address] [place], [address], 03/05/2023 13:00:55 03/05/20 23 03/05/2023 COMPR EHENS PATRICIA METAB OLIC PANEL bilirubin, total 0.50 mg/dL 0.20-1 .30 Not Available [facility] (Lab) [address] [place], [address], 03/05/2023 13:00:55 03/05/20 23 03/05/2023 COMPR EHENS PATRICIA METAB OLIC PANEL calcium 9.7 mg/dL 8.4-10 .2 Not Available [facility] (Lab) [address] [place], [address], 03/05/2023 13:00:55 03/05/20 23 03/05/2023 COMPR EHENS PATRICIA METAB OLIC PANEL total protein 7.1 g/dL 6.3-8. 2 Not Available [facility] (Lab) [address] [place], [address], 03/05/2023 13:00:55 03/05/20 23 03/05/2023 COMPR EHENS PATRICIA METAB OLIC PANEL albumin 4.2 g/dL 3.4-5. 0 Not Available [facility] (Lab) [address] [place], [address], 03/05/2023 13:00:55 03/05/20 23 03/05/2023 COMPR EHENS PATRICIA METAB OLIC PANEL globulin 2.9 g/dL 2.6-4. 2 Not Available [facility] (Lab) [address] [place], [address], 03/05/2023 13:00:55 03/05/2003/05/2023 COMPR EHENS PATRICIA METAB OLIC PANEL A/G ratio 1.4 ratio 1.0-2. 0 Not Available [facility] (Lab) [address] [place], [address], 03/05/2023 13:00:55 03/05/2003/05/2023 LIPID PANEL cholesterol 233 mg/dL 140-19 9 high NIH GIOVANY NSUS RECOM MENDA TION FOR JAMES STERO L: ADULT CHILD LOW RISK: <200 <170 BORDE RLINE : <200- 239 ----- HIGH RISK: >240 >200 Not Available [facility] (Lab) [address] [place], [address], 03/05/2023 13:00:59 03/05/2003/05/2023 LIPID PANEL triglyceride s 52 mg/dL 0-150 NIH GIOVANY NSUS REPOR T RECOM MENDA TION FOR TRIGL YCERI UNRULY: ADULT CHILD LOW RISK: <150 ----- BODER LINE: 150-1 99 ----- HIGH RISK: >200 ----- Not Available [facility] (Lab) [address] [place], [address], 03/05/2023 13:00:59 03/05/2003/05/2023 LIPID PANEL HDL cholesterol 87 mg/dL 40- Not Available [facility] (Lab) [address] [place], [address], 03/05/2023 13:00:59 03/05/2003/05/2023 LIPID PANEL LDL cholesterol, [...] WILL NOT BE REPOR JAVIER. Not Available [facility] (Lab) [address] [place], [address], 03/05/2023 13:00:59 03/05/2003/05/2023 T4 FREE free T4 1.31 NG/dL 0.78-2 .19 Not Available [facility] (Lab) [address] [place], [address], 03/05/2023 13:05:56 03/05/2003/05/2023 T3 FREE free T3 2.8 pg/mL 2.77-5 .27 Not Available [facility] (Lab) [address] [place], [address], 03/05/2023 13:06:01 03/05/2003/05/2023 VITAM IN D 25-HY DROXY vd25oh 65.2 NG/mL 30-100 Vitam in D Statu s: Defic ient: <20 ng/mL Insuf ficie nt: 20-29 ng/mL Suffi cient : 30-10 0 ng/mL Not Available [facility] (Lab) [address] [place], [address], 03/05/2023 14:19:24 03/05/2003/05/2023 TSH thyroid-stim ulating hormone 3.030 uIU/m L 0.465- 4.680 Not Available [facility] (Lab) [address] [place], [address], 03/05/2023 14:19:39 03/05/2003/05/2023 VITAM IN B12 (KASANDRA VERN ) vb12 449 pg/mL 239-93 1 Not Available [facility] (Lab) [address] [place], [address], 03/05/2023 14:23:04 03/05/20 23 03/05/2023 FOLAT E, SERUM /PLAS MA folate >20.0 NG/mL 2.76-2 0.0 Not Available [facility] (Lab) [address] [place], [address], 03/05/2023 14:23:05 03/05/20 23 03/05/2023 HEMOG LOBIN A1C HA1C 5.0 % 4.0-6. 0 Diabe perla Scree alison Crite ger: <5.7% Consi stent with absen ce of diabe perla 5.7-6 .4% Consi stent with incre ased risk for diabe perla (pred iabet es) >OR=6 .5% Consi stent with diabe perla REFER ENCE: Diabe perla Care 2016, 39(Villavicencio ppl.1 ):s13 -s22 Not Available [facility] (Lab) [address] [place], [address], 03/05/2023 15:06:46 03/05/20 23 03/06/2023 THYRO ID PEROX IDASE (TPO) AB thyroid peroxidase (tpo) Ab 299 IU/mL 0-34 high Perfo rmed at: [facility] [place] [address] Lab Direc tor: Can gross PhD, Phone : [phone] Not Available [facility] (Lab) [address] [place], [address], 03/06/2023 08:18:46 01/20/2001/14/2024 XR, lumba r spine No observ ation record ed. [address] [place], [address], 01/20/2024 15:25:15 01/20/20 24 01/14/2024 XR, thora cic spine , 2 view No observ ation record ed. [facility] [address] [place] [address] [place], [address], 01/20/2024 15:25:16 06/22/19 25 06/21/2024 imagi ng/di agnos tic resul t No observ ation record ed. [facility] [address], [place], [address], 06/21/2024 18:15:49 Result Notes None recorded. Problems Name Problem SNOMED Code Status Onset Date Resolution Date Notes Provider Name and Address Organization Details Recorded Time [place] 464244670 Completed 202110/28/2023 Floresita Sinha APRN [address], [place], [address], [employer] 4 15:07:51 Hypothyroid ism 61580438 Completed 202104/06/2024 Floresita Sinha APRN [address], [place], [address], [employer] 5 15:23:43 Liver enzymes level above reference range 466981089 Completed 202110/28/2023 Floresita Sinha APRN [address], [address], [place], [address], [employer] 4 15:07:55 Hypothyroid ism due to Lary's thyroiditis 828772668 Active 2022 Floresita Sinha APRN [address], [place], [address], [employer] 4 10:14:53 Osteoporosi s 56614265 Active 2022 Floresita Sinha APRN [address], [address], [place], [address], [employer] 4 10:15:02 Mixed anxiety and depressive disorder 917170186 Active 2022 Floresita Sinha APRN [address], [address], [place], [address], [employer] 4 10:14:56 Vitamin D deficiency 11560102 Active 2022 Floresita Sinha APRN [address], [address], [place], [address], [employer] 4 10:15:09 Decreased hearing 185597550 Active 2022 Floresita Sinha APRN [address], [address], [place], [address], [employer] 4 15:07:49 Postmenopau jen osteoporosi s 891726203 Active 2022 Floresita Sinha APRN [address], [address], [place], [address], [employer] 4 15:07:58 Fatigue 83847667 Active 2022 Floresita Sinha APRN [address], [place], [address], [employer] 4 10:14:38 Skin lesion 51437635 Completed 202210/28/2023 Floresita Sinha APRN [address], [address], [place], [address], [employer] 4 15:08:07 Vitamin B12 deficiency (non anemic) 65000995 Active 2022 Floresita Sinha APRN [address], [address], [place], [address], [employer] 4 10:15:04 Basal cell carcinoma of skin 531751750 Completed 202210/28/2023 Floresita Sinha APRN [address], [address], [place], [address], [employer] 4 15:07:46 Cobalamin deficiency 858245701 Active 2022 Floresita Sinha APRN [address], [address], [place], [address], [employer] 4 10:14:26 Folic acid deficiency 954767717 Active 2022 Floresita Sinha APRN [address], [place], [address], [facility] [employer] [facility] [employer] 4 10:14:42 Thoracic back pain 743899738 Active 2023 Floresita Sinha APRN [address], [place], [address], [facility] [employer] [facility] [employer] [facility] 4 13:36:27 Attention deficit hyperactivi ty disorder 355132373 Active 2023 Floresita Sinha APRN [address], [place], [address], [facility] [employer] [facility] [employer] [facility] 4 10:46:38 Low back pain 341716466 Active 2023 Floresita Sinha APRN [address], [place] [address], [place], [address], [facility] [employer] [facility] [employer] [facility] 4 10:58:52 Degeneratio n of interverteb ral disc 81426388 Active 2023 Floresita Sinha APRN [address], [place] [address], [place], [address], [facility] [employer] [facility] [employer] 4 15:04:36 Hearing difficulty 994278689 Active 2023 Floresita Sinha APRN [address], [place] [address], [place], [address], [facility] [employer] [facility] [employer] [facility] 4 11:28:11 Problem Notes None recorded. Procedures Surgical History Date Name Laterality Status Provider Name and Address Organization Details Recorded Time 03/04/20 excision of basal cell carcinoma completed Jennifer Balderas MA [facility] [employer] 03/05/2023 10:56:26 12/20/19 22 Cholecystectomy completed Not Available [facility] 05/23/2022 01:04:19 Imaging Results Imaging Date Name Status LastModified by Organiz ation Details LastModified Time 01/14/2024 XR, lumbar spine completed [address] , [place], [address], 01/20/2024 15:25:15 01/14/2024 XR, thoracic spine, 2 view completed [facility] [address] [place] [address] , [place], [address], 01/20/2024 15:25:16 06/21/2024 imaging/diagn ostic result active [facility] [address], [place], [address], 06/21/2024 18:15:49 Procedure Notes None recorded. Medical Equipment None Reported. Allergies Allergen ID Allergen Name Allergen Category Reaction Reaction Severity Criticality Documentation Date Start Date Code Code System Note Provider Name and Address Organization Details Recorded Time 83939 No known allergy (situatio n) Not available Not available Not available Not available 07/25/2023 83905 6003 SNOMED Floresitavaldez Sinha, [employer] ENGINE[employer] [address] [facility] [facility] [address], [place], [address] , [facility] [employer] 12:01:24 No known drug allergies Medications Name [...] MOUTH EVERY 4 TO 6 HOURS NEEDED 11/16 /2022 completed Not Available Not Available Not Available [...] Updated DateTime 3 172.72 cm 21.7 kg/m2 84556.7 1 g 97.4 [degF] 80 /min 100 % 100 % 126 mm[Hg] 72 mm[Hg] Jennifer Balderas, MA [place] [facility] [employer] 3 10:58:03 Date Recorded Body height Body mass index (BMI) Body weight Body temperature Heart rate Oxygen saturation Oxygen saturation in Arterial blood by Pulse oximetry Systolic blood pressure Diastolic blood pressure Provider Name and Address Organization Details Last Updated DateTime 4 172.72 cm 22.2 kg/m2 57629.4 9 g 97.3 [degF] 70 /min 99 % 99 % 140 mm[Hg] 68 mm[Hg] Rosaura Mccormick [place] [address] [employer] [facility] 4 10:05:27 Date Recorded Body height Body mass index (BMI) Body weight Body temperature Heart rate Oxygen saturation Oxygen saturation in Arterial blood by Pulse oximetry Pain severity - 0-10 verbal numeric rating [Score] - Reported Systolic blood pressure Diastolic blood pressure Provider Name and Address Organization Details Last Updated DateTime 4 172.72 cm 21.4 kg/m2 95668.5 2 g 96.7 [degF] 75 /min 98 % 98 % 7 130 mm[Hg] 70 mm[Hg] Rosaura Mccormick [place] [address] [employer] 4 10:22:30 Date Recorded Body height Body mass index (BMI) Body weight Body temperature Heart rate Oxygen saturation Oxygen saturation in Arterial blood by Pulse oximetry Pain severity - 0-10 verbal numeric rating [Score] - Reported Systolic blood pressure Diastolic blood pressure Provider Name and Address Organization Details Last Updated DateTime 4 172.72 cm 21.1 kg/m2 55218.3 4 g 98.2 [degF] 78 /min 97 % 97 % 5 128 mm[Hg] 74 mm[Hg] Rosaura Mccormick [place] [facility] 4 11:11:00 Date Recorded Body height Body mass index (BMI) Body weight Body temperature Heart rate Oxygen saturation Oxygen saturation in Arterial blood by Pulse oximetry Pain severity - 0-10 verbal numeric rating [Score] - Reported Systolic blood pressure Diastolic blood pressure Provider Name and Address Organization Details Last Updated DateTime 5 172.72 cm 20.8 kg/m2 87134.1 5 g 97.7 [degF] 84 /min 99 % 99 % 0 118 mm[Hg] 72 mm[Hg] JESSICA Somesr [employer] [facility] 5 15:13:03 Social History Question Answer Notes LastModified by Organizat ion Details LastModified Time Tobacco Smoking Status Former Smoker [place]AN Prabhak[place], [place] - [facility] 03/05/2023 10:52:48 What Is Your Level Of Alcohol Consumption? Occasional [id number] Information not available 05/23/2022 Do You Wear A Helmet When Biking? Yes [email or web address] Information not available 03/05/2023 What Is Your Level Of Caffeine Consumption? Moderate [id number] Information not available 05/23/2022 In The 14 Days Before Symptom Onset, Have You Had Close Contact With A Laboratory-confi rmed COVID-19 While That Case Was Ill? No [email or web address] Information not available 03/05/2023 In The 14 Days Before Symptom Onset, Have You Had Close Contact With A Person Who Is Under Investigation For COVID-19 While That Person Was Ill? No [email or web address] Information not available 03/05/2023 Are You Currently Employed? No Information not available 01/14/2024 What Type Of Diet Are You Following? REGULAR [id number] Information not available 05/23/2022 What Is The Highest Grade Or Level Of School You Have Completed Or The Highest Degree You Have Received? [id number] [email or web address] Information not available 03/05/2023 Have There Been Any Changes To Your Family Or Social Situation? Yes [email or web address] Information not available 03/05/2023 What Is The Fluoride Status Of Your Home? Unknown [email or web address] Information not available 03/05/2023 When Did You Quit Smoking? 16+yearssincelastci maria eugenialisa [email or web address] Information not available 03/05/2023 Are There Any Guns Present In Your Home? No [email or web address] Information not available 03/05/2023 Do You Use Insect Repellent Routinely? No [email or web address] Information not available 03/05/2023 Where Do You Live? SingleLevelHouse [email or web address] Information not available 03/05/2023 What Was The Date Of Your Most Recent Tobacco Screening? 04/06/2024 Information not available 04/06/2024 How Many Children Do You Have? 1 Information not available 01/14/2024 Do You Have Any Pets? Yes [email or web address] Information not available 03/05/2023 What Is Your Relationship Status? [id number] Information not available 05/23/2022 Do You Use Your Seat Belt Or Car Seat Routinely? Yes Information not available 03/05/2023 Do You Have Smoke And Carbon Monoxide Detectors In Your Home? Yes Information not available 03/05/2023 Are You Passively Exposed To Smoke? No [email or web address] Information not available 03/05/2023 Are There Any Smokers In Your House? No [email or web address] Information not available 03/05/2023 Do You Feel Stressed (tense, Restless, Nervous, Or Anxious, Or Unable To Sleep At Night)? [id number] [email or web address] Information not available 03/05/2023 Do You Use Any Illicit Or Recreational Drugs? No Information not available 03/05/2023 Do You Use Sunscreen Routinely? No [email or web address] Information not available 03/05/2023 Have You Recently Traveled Abroad? No [email or web address] Information not available 03/05/2023 Do You Have Any Dietary Restrictions? No [email or web address] Information not available 03/05/2023 Do You Or Have You Ever Used Any Other Forms Of Tobacco Or Nicotine? No [email or web address] Information not available 03/05/2023 Sex: Female Functional Status Question Answer Note LastModified by Organizat ion Details LastModified Time What is your exercise level? Occasional [id number] Information not available 05/23/2022 Mental Status [...] HEARING PROBLEMS N MUMPS N SHINGLES N BOWEL PROBLEMS N DEPRESSION (INCLUDING POST ) N STROKE/TIA N ULCERS N BENIGN PROSTATIC HYPERPLASIA N MEASLES N HYPOTENSION N MYOCARDIAL INFARCTION N OBESITY N GERD/NAUSEA N ANEURYSM N URINARY/BLADDER/KIDNEY PROBLEMS N CORONARY ARTERY DISEASE (CAD) N ADDICTION CONCERNS N ENDOMETRIOSIS N Impotence N USE OF BLOOD THINNERS N SKIN [...] GLAUCOMA N FOOT PROBLEM N DIVERTICULITIS N CHICKENPOX N SLEEP APNEA N INFECTIOUS DISEASE N HEART ARRHYTHMIA N PROSTATE N INSOMNIA N HIGH CHOLESTEROL / HYPERLIPIDEMIA N HYPERTHYROIDISM N EYE PROBLEMS N EDEMA N CHRONIC PAIN SYNDROME N HYPOTHYROIDISM Y CAROTID BLOCKAGE N CONSTIPATION N BACK / NECK PROBLEMS N HAVE YOU BEEN HOSPITALIZED OR SEEN IN [facility] IN THE PAST YEAR ? N ATHEROSCLEROSIS N BREAST PROBLEMS N DIALYSIS N ECZEMA N OSTEOPOROSIS N ARTHRITIS N NO SIGNIFICANT PAST MEDICAL HISTORY N APPENDICITIS N DIABETES, TYPE N BAD TEETH N ENT N HEARTBURN / REFLUX N AUTISM SPECTRUM DISORDER (ASD) N HEPATITIS / LIVER DISEASE N GOUT N SLEEP DISORDER N ALZHEIMER'S DISEASE N Brain Problems N HERPES N DEMENTIA N HEADACHES/MIGRAINES N SEIZURES/EPILEPSY N VASCULAR DISEASE N PACEMAKER N Blood Disorder N DIZZINESS N HEART DISEASE/HEART PROBLEMS N KIDNEY DISEASE N MULTIPLE SCLEROSIS N CARDIAC ARRHYTHMIA N CANCER: SPECIFY N ATRIAL FIBRILLATION N Gall Stones N [...] Immunizations Vaccine Type Date Status Note Provider Vicente richmond and Address Organization Details Recorded Time COVID-19, mRNA, LNP-S, PF, 100 mcg/0.5mL dose or 50 mcg/0.25mL dose 03/13/2021 completed Floresita Sinha, LINUX SYSTEMS ENGINEER [address] [facility], [facility] [address], [place], [address], [facility] [employer] [facility] 07/25/2023 12:00:56 COVID-19, mRNA, LNP-S, PF, 30 mcg/0.3 mL dose 07/20/2020 completed Floresita Sinha APRN [address], [place], [address], [facility] [employer] [facility] 07/25/2023 12:00:56 COVID-19, mRNA, LNP-S, PF, 30 mcg/0.3 mL dose 06/28/2020 completed Floresita Sinha APRN [address], [place], [address], [facility] [employer] [facility] 07/25/2023 12:00:56 COVID-19, mRNA, LNP-S, bivalent, PF, 30 mcg/0.3 mL dose 04/28/2022 completed Floresita Sinha APRN [address], [place], [address], [facility] [employer] [facility] 07/25/2023 12:00:56 COVID-19, mRNA, LNP-S, PF, 100 mcg/0.5mL dose or 50 mcg/0.25mL dose 10/18/2021 completed Floresita Sinha APRN [address], [place], [address], [facility] [employer] [facility] 01/14/2024 10:36:58 Past Encounters Encounter ID Performer Location Encounter Start Date Encounter Closed Date Diagnosis/Indication Diagnosis SNOMED-CT Code Diagnosis ICD10 Code Diagnosis Note [id number] [facility] Internal Med Kali [address] [place] [address] 09/26/2021 00:00:00 09/26/2021 13:59:37 [id number] [facility] Internal Med Kali goncalves [address] [place] [address] 11/14/2021 00:00:00 11/14/2021 17:17:25 [id number] [facility] General Surgery [address] [place] [address] 12/06/2021 00:00:00 12/06/2021 14:29:18 [id number] [facility] General Surgery [address] [place] [address] 01/01/2022 00:00:00 01/01/2022 12:05:38 [id number] [facility] Internal Med Kali goncalves [address] [facility] [address] , [place] [address] 02/06/2022 00:00:00 02/06/2022 15:08:32 [id number] [facility] Endo [place] [address] [place] [address] 03/04/2022 00:00:00 03/04/2022 15:48:15 [id number] Yasmin Sanchez, MECHANISM INSPECTOR-C [facility] Internal Med Kali [address]calves [address] , [place] [address] 08/28/2022 10:45:55 08/28/2022 11:06:31 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 Horton Osteoporosis 90554996 M8 1.0 not currently on meds, now following endodiscus sed med options- she declines all, is trying a vibration machine to help with her bone strengthre commend calcium, vitamin d, weight bearing exercise 2-3x per week Mixed anxi ety and depressive disorder 347614112 F41.8 she self stopped the lexaproCal l office if any change in mood or behaviorSh e declines psychiatry referralCo unseling recommende d -name /numbers provided to patient previously Decreased hearing 103953 001 H91.90 get appointmen t with audiologis t- has referral Vitamin D deficiency 347 76353 E55.9 on supplement Ex-smoker 9419527 Z87.89 1 does not qualify for LDCT- quit smoking over 20 years ago Hepatitis C antibody detected 506735467 Z86.19 PCR was negative Liver enzy mes level above reference range 841026979 R74.01 now normalized on labs 08/2022 post-james cystectomy Screening mammography 24 631896 Z12.31 Skin lesion 99098321 L98 .9 get appt with derm for skin check Referral needed 69161453 9 Z76.89 Adult heal th examination 223357064 Z00.01 Depression screening 171 541042 Z13.31 Normal bod y mass index 10793737 Z68.21 recommend healthy, well balanced mealsfocus on lean meats, fresh vegetables , fresh fruits, whole grainsredu ce fast/proce ssed foods or eating out to no more than 1-2 times per weekaim to get 30 min of exercise most days of the week- walking is a great choicealso recommend resistance training 2-3 times per week [id number] Jennie Horton MD [facility] Endo [place] [address] [place] [address] 08/27/2022 09:28:17 08/27/2022 10:02:28 Hypothyroidism 12033929 E03.9 TSH and FT4 in ideal range [...] and reduce inflammati on. Postmenopa usal osteoporosis 120853632 M81.0 Send for full panel prior to labwork to screen for parathyroi d disease. repeat bone density in summer 2023. Fatigue 39485574 R53.83 Trial on low dose lomaria 8 [...] she chooses to go outside of the [facility] to obtain labwork she was [...] in her case. She voiced understand ing. [id number] Jennie Horton MD [facility] Endo [place] [address] [place] [address] 12/27/2022 09:26:52 12/27/2022 09:52:58 Hypothyroidism 68417738 E03.9 TSH and FT4 in ideal range [...] on. Vitamin B1 2 deficiency (non anemic) 58486071 E53.8 Trial on B12 injections as patient [...] answered and refills necessary at visit today. 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 Branch needs new endo referralre ferral placed for Dr. Crocker Synthroid from endo Osteoporosis 26918935 M8 1.0 not currently on meds, now following endodiscus sed med options- she declines all, is trying a vibration machine to help with her bone strengthre commend calcium, vitamin d, weight bearing exercise 2-3x per week Mixed anxi ety and depressive disorder 474670557 F41.8 she self stopped the lexaproCal l office if any change in mood or behaviorSh e declines psychiatry referralCo unseling recommende d -name /numbers provided to patient previously Decreased hearing 106604 001 H91.90 get appointmen t with audiologis t- has referral Vitamin D deficiency 347 71288 E55.9 on supplement Ex-smoker 2881189 Z87.89 1 does not qualify for LDCT- quit smoking over 20 years ago Hepatitis C antibody detected 888624957 Z86.19 PCR was negative Liver enzy mes level above reference range 759269832 R74.01 now normalized on labs 08/2022 post-james cystectomy Normal bod y mass index 21393179 Z68.21 recommend healthy, well balanced mealsfocus on lean meats, fresh vegetables , fresh fruits, whole grainsredu ce fast/proce ssed foods or eating out to no more than 1-2 times per weekaim to get 30 min of exercise most days of the week- walking is a great choicealso recommend resistance training 2-3 times per week Basal cell carcinoma of skin 607940556 C44.91 following dermatolog y at [facility]/p excision Hyperlipid emia screening 188332752 Z13.220 Diabetes m ellitus screening 918051085 Z13.1 Cobalamin deficiency 190 608529 E53.8 on injections from endo Folic acid deficiency 19 6524922 E53.8 on supplement Fatigue 37880109 R53.83 labs as abovenew endo referral placed as above [id number] Floresita Sinha APRN [facility] Internal Med [facility] [address] [facility] [address] 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 706317478 E06.3 Hypothyroidism 46888864 E03.9 Vitamin B1 2 deficiency (non anemic) 79392436 E53.8 Osteoporosis 78481404 M8 1.0 Cobalamin deficiency 190 587120 E53.8 Mixed anxi ety and depressive disorder 900670476 F41.8 [id number] Floresita Sinha APRN [facility] Internal Med [facility] [address] [facility] , [place] [address] 01/14/2024 10:09:02 01/14/2024 10:53:09 Thoracic back pain 236439530 M54.6 Attention deficit hyperactivity disorder 967078284 F90.9 [id number] Floresita Sinha APRN [facility] Primary Care [facility] [address] [facility] [address] [place] [address] 01/28/2024 10:56:41 01/28/2024 12:02:14 Degeneration of intervertebral disc 86950517 M51.9 Hearing difficulty 07401 0000 H91.93 Hypothyroidism 35246315 E03.9 [id number] Laquita Baker NP [facility] [address] [address] 02/04/2024 11:54:45 02/05/2024 14:10:32 [id number] Laquita Baker NP [facility] [address] [facility], [address] [address] 03/03/2024 12:02:38 03/03/2024 12:42:51 [id number] Floresita Sinha APRN [facility] Internal Med [facility] [address] [facility] [address] [place] [address] 04/06/2024 14:58:36 04/06/2024 15:28:04 Hypothyroidism 86453731 E03.9 [id number] Laquita Baker NP [facility] [address] [address] 03/31/2024 11:58:17 03/31/2024 12:51:14 [id number] Laquita Baker NP [facility] [address] [address] 04/28/2024 12:02:05 04/28/2024 14:24:44 [id number] Laquita Baker NP [facility] [address] [address] 05/26/2024 11:15:16 05/26/2024 12:27:25 Health Concerns Section Related Observation LastModified by Organization Detai ls LastModified Time None Recorded Concern Status LastModified by Organization Details LastModified Time None Recorded Advance Directives Directive None Recorded Payers Encounter Date Sequence Insurance Name Policy Number Policy Nair Covered Member ID Nair Member ID Guarantor Name 03/05/2023 1 [employer] [place] [id number] Cherelle Salter [id number] Cherelle Salter 07/23/2023 1 [employer] [place] [id number] Cherelle Salter [id number] Cherelle Salter 01/14/2024 1 [employer] [place] [id number] Cherelle Salter [id number] Cherelle Salter 01/28/2024 1 [employer] [place] [id number] Cherelle Salter [id number] Cherelle Salter 04/06/2024 1 [employer] [place] [id number] Cherelle Salter [id number] Cherelle Salter Notes Date Note Type Note [...] reports she did see Dermatology over at [facility] yesterday. They removed basal cell carcinoma on her chest. She reports she follows up again with them in July. She is due for labs. She declines flu vaccine today. She reports her mammogram is scheduled today [facility] for April. Yasmin Sanchez, BRYAN-Earnest [address] [facility], [place], [address], [employer] 03/05/2023 11:20:29 07/23/2023 text/html Cat presents toyessenia ay to establish care. She states that she is in need of an reimbursement director, as hers has left the area, for [...] reports she did see Dermatology over at [facility] yesterday. They removed basal cell carcinoma on her chest. She reports she follows up again with them in July. She is due for labs. She declines flu vaccine today. She reports her mammogram is scheduled today [facility] for April. Floresita Sinha APRN [address] [facility] [address] [facility], [place], [address], [employer] 07/23/2023 10:28:19 01/14/2024 text/html Cat presents toyessenia ay due to pain in her upper/mid back. [...] that she is in need of an reimbursement director, as hers has left the area, for [...] reports she did see Dermatology over at [facility] yesterday. They removed basal cell carcinoma on her chest. She reports she follows up again with them in July. She is due for labs. She declines flu vaccine today. She reports her mammogram is scheduled today [facility] for April. Floresita Sinha, LINUX SYSTEMS ENGINEER [address] [facility], [address], [place], [address], [facility] [employer] 01/14/2024 10:51:17 01/28/2024 text/html Cat presents toyessenia duran for follow up for back pain. Cat [...] that she is in need of an reimbursement director, as hers has left the area, for [...] reports she did see Dermatology over at [facility] yesterday. They removed basal cell carcinoma on her chest. She reports she follows up again with them in July. She is due for labs. She declines flu vaccine today. She reports her mammogram is scheduled today [facility] for April. Floresita Sinha, LINUX SYSTEMS ENGINEER [address], [place], [address], [place] [facility] 01/28/2024 11:31:40 04/06/2024 text/html Doris presents toyessenia duran for 3 month follow up. She states [...] that she is in need of an reimbursement director, as hers has left the area, for [...] reports she did see Dermatology over at [facility] yesterday. They removed basal cell carcinoma on her chest. She reports she follows up again with them in July. She is due for labs. She declines flu vaccine today. She reports her mammogram is scheduled today [facility] for April. Floresita Sinha, LINUX SYSTEMS ENGINEER [address] [facility], [facility] [address], [place], [address], [place] [employer] 04/06/2024 15:27:22 OBGyn Episode No OBEpisode recorded.
--- OUTSIDE RECORDS SUMMARY | 2024-06-21 17:18 | XMS_ITS | Clinical Summary ---
Author Organization [facility] [address] [place] [address] Care Team Providers Care Composing Room Machinist Apprentice Name Role Phone Tod Vargas MD Primary Care Provi moraima Allergies No known active allergies Medications albuterol HFA (PROVENTIL HFA,VENTOLIN HFA,PROAIR HFA) 90 mcg/actuation inhaler 2 puffs every 4 (four) hours as needed 04/01/19 25 Active venlafaxine 150 mg tablet extended release 24hr 24 hr tablet Take 1 tablet (150 mg total) by mouth 02/06/20 24 Active levothyroxine (SYNTHROID) 88 mcg tabletIndicatio ns:Autoimmune thyroiditis,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 take with empty stomach, 45 minutes before food/medications /supplement. Taking consistently and correctly to ensure good/stable absorption of the thyroid hormone medication. 30 tablet 9 04/15/19 25 Active liothyronine (CYTOMEL) 5 mcg tabletIndicatio ns:Autoimmune thyroiditis,Hyp othyroidism due to Lary thyroiditis liothyronine 7.5 mcg (can take 5mcg in am, and 2.5mcg pm), with Synthroid 88 mcg am. 45 tablet 11 06/10/19 25 Active liothyronine (CYTOMEL) 5 mcg tabletIndicatio ns:Autoimmune thyroiditis,Hyp othyroidism due to Lary thyroiditis Take 1 tablet (5 mcg total) by mouth daily 30 tablet 3 01/17 025 Discontin ued(Reord er) Active Problems No known active problems Encounters Date Type Department Care Team Description 06/04/2024 Orders Only [facility] Endocrinology Metabolism and Lipid [address] [facility] [address]th [place] [address] [place] [address] Skip Ahn MD 04/13/2024 Telephone [facility] Endocrinology Metabolism and Lipid [address] [facility] 5th [place] [address] [place] [address] Micha Durant RN Prior Auth (Synthroid ) 04/09/2024 3:00 PM ACCELERATOR TECHNICIAN Office Visit [facility] Endocrinology Metabolism and Lipid [address] [facility] [address] [place] [address] Skip Ahn MD 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); Autoimmune thyroiditis 03/23/2024 Telephone [facility] [address] [facility] 4th [address] [place] [address] Nuvia Staton from Last 3 Months Social [...] Comments Blood Pressure 147/75 04/09/2024 3:51 PM ACCELERATOR TECHNICIAN Pulse 96 04/09/2024 3:00 PM ACCELERATOR TECHNICIAN Temperature 36.7 C (98.1 F) 04/09/2024 3:00 PM ACCELERATOR TECHNICIAN Respiratory Rate - - Oxygen Saturation - - Inhaled Oxygen Concentration - - Weight 62.3 kg (137 lb 6.4 oz) 04/09/2024 3:00 P M ACCELERATOR TECHNICIAN Height 172.7 cm (5' 8 ) 04/09/2024 3:00 PM ACCELERATOR TECHNICIAN Body Mass Index 20.89 04/09/2024 3:00 PM ACCELERATOR TECHNICIAN Plan of Treatment Health Maintenance Due Date Last Done Comments Breast Cancer Screening-Mammogram 1965 Cervical Cancer Screening 1965 Colon Cancer Screening-Colonoscopy 1965 Depression Screening 1965 Hepatitis C Screening 1965 DTaP/Tdap/Td Vaccine (1 - Tdap) 12/23/1974 Hepatitis B Screening 12/23/1981 Regular Well Visit/Exam 18-64 12/23/1981 Zoster Vaccine (1 of 2) 12/23/2013 Covid-19 Vaccine ( - season) 2023 10/18/2021, 03/13/2021, 07/20/2020, Additional history exists Influenza Vaccine (#1) 2023 Pneumococcal vaccine <65 Aged Out No longer eligible based on patient's age to complete this topic Procedures Procedure Name Priority Date/Time Associated Diagnosis Comments T3, FREE Routine 06/04/2024 10:21 AM CDT TSH Routine 06/04/2024 10:21 AM CDT T4, FREE Routine 06/04/2024 10:21 AM CDT from Last 3 Months Results * T3, free (06/04/2024 10:21 AM CDT) Free T3 3.4 2.3 - 4.2 pg/mL [facility] 06/04/2024 10:2 1 AM CDT 06/04/2024 10:21 AM CDT Skip Ahn MD LAB BLOOD ORDERABLES Final Resul t [facility] [address] [place] [address] * TSH (06/04/2024 10:21 AM CDT) TSH 4.19 0.40 - 4.50 mIU/L [facility] 06/04/2024 10:2 1 AM CDT 06/04/2024 10:21 AM CDT Skip Ahn MD LAB BLOOD ORDERABLES Final Resul t [facility] [address] [place] [address] * T4, free (06/04/2024 10:21 AM CDT) Free T4 1.1 0.8 - 1.8 ng/dL [facility] 06/04/2024 10:2 1 AM CDT 06/04/2024 10:21 AM CDT Skip Ahn MD LAB BLOOD ORDERABLES Final Resul t Performing Organization Address City/[facility] Co de Phone Number [facility] [address] [place] [address] from Last 3 Months Insurance [facility] Care Teams Composing Room Machinist Apprentice Relationship Specialty Start Date End Date Tod Vargas MD [address] [address] PCP - General Family Medicine 07/16/21
--- OUTSIDE RECORDS SUMMARY | 2024-06-21 17:18 | XMS_ITS | Clinical Summary ---
Author Organization [facility] Address [address] [place] [address] Care Team Providers Care Director Custom Name Role Phone Floresita Sinha Primary Care Provider [phone] Source Comments [facility],non-owned Affiliates and Associated Physician Practices is amultiple site organization consisting of ambulatory clinics and hospital sitesin [place], [place], [place] and [place]. This disclosure is being madepursuant to the Care Everywhere program and may not contain all information available regarding this patient. Last updated 17.[facility] Allergies No known active allergies Medications * [...] Sex Assigned at Female 01/28/2023 11:52 AM FAST FOOD FRY COOK Gender Identity Female 01/28/2023 11:52 AM FAST FOOD FRY COOK Sexual Orientation Not on file Plan of Treatment Upcoming Encounters Date Type Department Care Team (Late st Contact Info) Description 08/02/2024 2:10 PM CDT Office Visit [facility] - Dermatology [address] [place] [address], [place] [address] Kylee Razo MD [address] [place] [address] [place] [address] Health Maintenance Due Date Last Done Comments [...] complete this topic MENINGOCOCCAL (Group B) VACCINE SHARED DECISION-MAKING Aged Out No longer eligible based on patient's age to complete this topic MENINGOCOCCAL GROUPS A/C/Y/W VACCINE Aged Out No longer eligible based on patient's age to complete this topic Care Teams Director Custom Relationship Specialty Start Date End Date Floresita Sinha [facility] [place] [address] PCP - General 02/02/24
--- OUTSIDE RECORDS SUMMARY | 2024-06-21 17:18 | XMS_ITS | Referral Summary ---
Author Organization [facility] [address] Address [address] [place] [address] Care Team Providers Care Insulation Manager Name Role Phone Tod Vargas MD Primary Care Provi moraima Encounters Date Type Department Care Team Description 06/04/2024 Orders Only [facility] Endocrinology Metabolism and Lipid [address] [facility] [address] [place] [address] [place] [phone] Skip Ahn MD 04/13/2024 Telephone [facility] Endocrinology Metabolism and Lipid [address] [facility] [address] 5th [place] [address] [place] [phone] Jose Peoples, Micha Garcia RN Prior Auth (Synthroid ) 04/09/2024 3:00 PM CONVEYOR ATTENDANT Office Visit [facility] Endocrinology Metabolism and Lipid [address] [facility] [address] [place] [phone] Skip Ahn MD 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); Autoimmune thyroiditis 03/23/2024 Telephone [facility] [address] [place] [address] Outpatient Health 4th Floor [address] [place] [phone] Nuvia Staton from Last 3 Months Allergies [...] total) by mouth daily 30 tablet 3 04/09/19 25 025 Discontin ued(Reord er) Active Problems No known active problems Social [...] Comments Blood Pressure 147/75 04/09/2024 3:51 PM CONVEYOR ATTENDANT Pulse 96 04/09/2024 3:00 PM CONVEYOR ATTENDANT Temperature 36.7 C (98.1 F) 04/09/2024 3:00 PM CONVEYOR ATTENDANT Respiratory Rate - - Oxygen Saturation - - Inhaled Oxygen Concentration - - Weight 62.3 kg (137 lb 6.4 oz) 04/09/2024 3:00 P M CONVEYOR ATTENDANT Height 172.7 cm (5' 8 ) 04/09/2024 3:00 PM CONVEYOR ATTENDANT Body Mass Index 20.89 04/09/2024 3:00 PM CONVEYOR ATTENDANT Plan of Treatment Not on file Procedures Procedure Name Priority Date/Time Associated Diagnosis Comments T3, FREE Routine 06/04/2024 10:21 AM CDT TSH Routine 06/04/2024 10:21 AM CDT T4, FREE Routine 06/04/2024 10:21 AM CDT from Last 3 Months Results * T3, free (06/04/2024 10:21 AM CDT) Free T3 3.4 2.3 - 4.2 pg/mL [facility] 06/04/2024 10:2 1 AM CDT 06/04/2024 10:21 AM CDT us Skip Ahn MD LAB BLOOD ORDERABLES Final Resul t [facility] [address] [place] [address] * TSH (06/04/2024 10:21 AM CDT) TSH 4.19 0.40 - 4.50 mIU/L [facility] 06/04/2024 10:2 1 AM CDT 06/04/2024 10:21 AM CDT us Skip Ahn MD LAB BLOOD ORDERABLES Final Resul t Performing Organization Address City/[facility]/ZIP Co de Phone Number [facility] [address] [place] [address] * T4, free (06/04/2024 10:21 AM CDT) Free T4 1.1 0.8 - 1.8 ng/dL [facility] 06/04/2024 10:2 1 AM CDT 06/04/2024 10:21 AM CDT us Skip Ahn MD LAB BLOOD ORDERABLES Final Resul t Performing Organization Address City/[facility]/ZIP Co de Phone Number [facility] [address] [place] [address] from Last 3 Months Insurance [facility] Care Teams Insulation Manager Relationship Specialty Start Date End Date Tod Vargas MD [address] [address] PCP - General Family Medicine 07/16/21
== END 2024-06-21 15:56 | disposition home or self-care (01) ==
PROVIDERS: PCP Internal Medicine; Visit Provider Orthopaedic Surgery
DX: S32.9XXA Fracture of unspecified parts of lumbosacral spine and pelvis, initial encounter for closed fracture (principal)
CPT/HCPCS: 72195

== ENCOUNTER 2024-07-08 09:07 | Outpatient (CLI) | payer OTHER, SELFPAY ==
--- NOTE | ~2024-07-08 | MM_ITS ---
EXAMINATION: MM screening lisa BI w doroteo HISTORY: Screening TECHNIQUE: Craniocaudal and mediolateral oblique 3-D tomosynthesis images were obtained and synthetic 2-D images were generated. CAD analysis was submitted and interpreted. COMPARISON: Comparison to multiple prior studies sequentially, with oldest reviewed study dated 10/02. BREAST PARENCHYMAL COMPOSITION: Not dense: There are scattered areas of fibroglandular density. FINDINGS: There is no evidence of suspicious mass, calcification, or architectural distortion to sugg est malignancy in either breast. There has been no suspicious interval change. IMPRESSION: 1. No mammographic evidence of malignancy. 2. Recommend routine screening mammography in one year. BI-RADS Category 1: Negative Reviewed, dictated and finalized at location B.
--- NOTE | ~2024-07-08 | DEXA_ITS ---
Bone Density Report Name: RIOS WISEMAN Age: 58 Sex: Female Ethnicity: White Date of : 1965 Indication: postmenopausal; screening for osteoporosis; height loss; prior fracture; secondary osteoporosis; Referring Provider: LUIS AARON Study: Bone densitometry was performed. Exam Date: July 08, 2024 Accession number: [id number] Bone Density: Region BMD T-score Z-score Classification AP Spine(L1-L4) 0.633 -3.8 -2.3 Osteoporosis Femoral Neck (Left) 0.560 -2.6 -1.3 Osteoporosis Total Hip (Left) 0.642 -2.5 -1.5 Osteoporosis Femoral Neck (Right) 0.560 -2.6 -1.3 Osteoporosis Total Hip (Right) 0.644 -2.4 -1.5 Osteopenia Total Hip Mean 0.643 -2.5 -1.5 Osteopenia World Health Organization criteria for BMD impression classify patients as: Normal (T-score at or above -1.0), Osteopenia (T-score between -1.0 and -2.5), or Osteoporosis (T-score at or below -2.5). 10-year Fracture Risk: FRAX not reported because: Some T-score for Spine Total or Hip Total or Femoral Neck at or below -2.5 Prior hip or vertebral fracture Clinical Information Provided by Patient: Have had a previous hip or vertebral fracture Has had a low trauma fracture Has secondary osteoporosis Has used the following medications: Vitamin D, Calcium Patient maximum height was 68 Menopause Age: 39 Drinks caffeinated beverages Onset of menses at age 10 Number of children 1 Impression: The patient has established osteoporosis, based on the Total Spine T-score and the existence of a prior fracture. The patient has risk factors, including: previous fracture. Discussion: HIGH RISK OF FRACTURE. BONE DENSITY IS UNDESIRABLY LOW AT ONE OR MORE SKELETAL SITES, CONSISTENT WITH POSTMENOPAUSAL OSTEOPOROSIS. This patient's lowest T-score, in a patient who has previously fractured, meets the World Health Organization's (WHO) criteria for severe osteoporosis. In untreated patients, the risk of osteoporotic fracture increases approximately two-fold for each 1.0 SD decrease in T-score. Low bone density is not the only risk factor for fracture; also consider factors such as patient's age, frailty or poor health, risk of falling, risk of injury, previous osteoporotic fracture, family history of osteoporosis, cigarette smoking, low body weight, etc. Not everyone with low bone mineral density has osteoporosis; osteomalacia and other metabolic bone disorders should also be considered. Patients who have osteoporosis should be evaluated for specific diseases and conditions (secondary causes) that may cause or contribute to bone loss. The [place] [employer] (AACE) and National Osteoporosis Foundation (NOF) recommend pharmacologic intervention for all postmenopausal women with a previous hip or vertebral fracture and a T-score in this range. The patient should follow a healthful lifestyle (good nutrition with adequate calcium and vitamin D, and appropriate weight-bearing exercise). Follow-Up: Consider a repeat BMD and Vertebral Fracture Assessment (VFA) exam in 2 years or sooner if medically necessary, to reassess this patient's status. Reported by: ARGELIA on 07/08/2024 10:12:00 AM. Reviewed, dictated and finalized at location [facility]
--- OUTSIDE RECORDS SUMMARY | 2024-07-08 09:35 | XMS_ITS | Referral Summary ---
Author Organization [facility] [address] Address [address] [place] [address] Care Team Providers Care Steel Rigger Name Role Phone Tod Vargas MD Primary Care Provi moraima Encounters Date Type Department Care Team Description 06/04/2024 Orders Only [facility] Endocrinology Metabolism and Lipid [address] [facility] [address] 13th [place] [address] [place] [phone] Skip Ahn MD 04/13/2024 Telephone [facility] Endocrinology Metabolism and Lipid [address] [facility] [address] 5th [place] [address] [place] [phone] Jose Peoples, Micha Garcia RN Prior Auth (Synthroid ) 04/09/2024 3:00 PM SENIOR IT PROJECT MANAGER Office Visit [facility] Endocrinology Metabolism and Lipid [address] [facility] [address] [place] [phone] Skip Ahn MD 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); Autoimmune thyroiditis from Last 3 Months Allergies No known [...] Comments Blood Pressure 147/75 04/09/2024 3:51 PM SENIOR IT PROJECT MANAGER Pulse 96 04/09/2024 3:00 PM SENIOR IT PROJECT MANAGER Temperature 36.7 C (98.1 F) 04/09/2024 3:00 PM SENIOR IT PROJECT MANAGER Respiratory Rate - - Oxygen Saturation - - Inhaled Oxygen Concentration - - Weight 62.3 kg (137 lb 6.4 oz) 04/09/2024 3:00 P M SENIOR IT PROJECT MANAGER Height 172.7 cm (5' 8 ) 04/09/2024 3:00 PM SENIOR IT PROJECT MANAGER Body Mass Index 20.89 04/09/2024 3:00 PM SENIOR IT PROJECT MANAGER Plan of Treatment Not on file Procedures [...] BLOOD ORDERABLES Final Resul t [facility] [address] [place] [address] * TSH (06/04/2024 10:21 AM CDT) TSH 4.19 0.40 - 4.50 mIU/L [facility] 06/04/2024 10:2 1 AM CDT 06/04/2024 10:21 AM CDT us Skip Ahn MD LAB BLOOD ORDERABLES Final Resul t Performing Organization Address [facility] Co de Phone Number [facility] [address] [place] [address] * T4, free (06/04/2024 10:21 AM CDT) Free T4 1.1 0.8 - 1.8 ng/dL [facility] 06/04/2024 10:2 1 AM CDT 06/04/2024 10:21 AM CDT us Skip Ahn MD LAB BLOOD ORDERABLES Final Resul t Performing Organization Address City/[facility] Co de Phone Number [facility] [address] [place] [address] from Last [address] [facility] Care Teams Steel Rigger Relationship Specialty Start Date End Date Tod Vargas MD [address] [address] PCP - General Family Medicine 07/16/21
--- OUTSIDE RECORDS SUMMARY | 2024-07-08 09:36 | XMS_ITS | Clinical Summary ---
Author Organization [facility] [address] Address [address] [place] [address] Care Team Providers Care Internal Communications Writer Name Role Phone Tod Vargas MD Primary [...] Department Care Team Description 06/04/2024 Orders Only [facility] Endocrinology Metabolism and Lipid [address] [facility] [address]th [place] [address] [place] [address] Skip Ahn MD 04/13/2024 Telephone [facility] Endocrinology Metabolism and Lipid [address] [facility] [address] 5th [place] [address] [place] [phone] Micha Durant RN Prior Auth (Synthroid ) 04/09/2024 3:00 PM KNOT PICKER CLOTH Office Visit 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); Autoimmune thyroiditis from Last 3 Months Social History Tobacco [...] Comments Blood Pressure 147/75 04/09/2024 3:51 PM KNOT PICKER CLOTH Pulse 96 04/09/2024 3:00 PM KNOT PICKER CLOTH Temperature 36.7 C (98.1 F) 04/09/2024 3:00 PM KNOT PICKER CLOTH Respiratory Rate - - Oxygen Saturation - - Inhaled Oxygen Concentration - - Weight 62.3 kg (137 lb 6.4 oz) 04/09/2024 3:00 P M KNOT PICKER CLOTH Height 172.7 cm (5' 8 ) 04/09/2024 3:00 PM KNOT PICKER CLOTH Body Mass Index 20.89 04/09/2024 3:00 PM KNOT PICKER CLOTH Plan of Treatment Health Maintenance Due Date [...] BLOOD ORDERABLES Final Resul t [facility] [address] [place] [address] * TSH (06/04/2024 10:21 AM CDT) TSH 4.19 0.40 - 4.50 mIU/L [facility] 06/04/2024 10:2 1 AM CDT 06/04/2024 10:21 AM CDT Skip Ahn MD LAB BLOOD ORDERABLES Final Resul t [facility] [address] [place] [address] * T4, free (06/04/2024 10:21 AM CDT) Free T4 1.1 0.8 - 1.8 ng/dL [facility] 06/04/2024 10:2 1 AM CDT 06/04/2024 10:21 AM CDT Skip Ahn MD LAB BLOOD ORDERABLES Final Resul t [facility] [address] [place] [address] from Last 3 Months Insurance [facility] Care Teams Internal Communications Writer Relationship Specialty Start Date End Date Tod Vargas MD [address] [address] PCP - General Family Medicine 07/16/21
--- OUTSIDE RECORDS SUMMARY | 2024-07-08 09:36 | XMS_ITS | Data Portability ---
Author Organization [place] - [facility] [email or web address], Main Office Address [address] [place] [address] Assessment Encounter Date Assessment Date Assessment LastModified by Organization Details LastModified Time 03/05/2023 03/05/2023 Cscope- cologuard 10/2021- negative- repeat 10/2024 WWE- referred to RN RECOVERY- Vlad Pedroza- 09/2021- has scheduled for Apr at [place] [facility]- 09/2021- osteoporosis, refuses meds WEA-08/28/22 Call office if worse, ER if life threatening illness RTC 6 months and PRN- she plans transfer [facility] She voices understanding of plan and agrees [email or web address] Not available 03/05/2023 11:19:57 Plan of Treatment Reminders Order Date Submit Date Provider Last Modified By Organization Details Last Modified Time Details Appointments Any 15 2024 01:00P Trista Sinha APRN Not available Not available Not available Lab TSH, serum or plasma [address] - Outpatient Lab, [address] [place] [address], [address], 01/28/2024 12:23:33 vitamin D, 25-hydrox y, total, serum 2023 024 [email or web address] Not available 07/31/2023 11:23:55 TSH + free T4, serum 2023 024 Not available 07/31/2023 11:23:55 CBC w/ auto diff 2023 024 [email or web address] Not available 07/31/2023 11:23:55 lipid panel, blood 2023 024 [email or web address] Not available 07/31/2023 11:23:56 HbA1c (hemoglob in A1c), blood 2023 024 [email or web address] Not available 07/31/2023 11:23:56 CMP, serum or plasma 2023 024 [email or web address] Not available 07/31/2023 11:23:55 vitamin B12 + folate, serum or blood 2023 024 [email or web address] Not available 07/31/2023 11:23:55 vitamin D, 25-hydrox y, total, serum 2022 023 [email or web address] Not available 03/27/2023 13:59:59 CMP, serum or [...] HbA1c (hemoglob in A1c), blood 2022 023 [email or web address] Not available 03/27/2023 14:00:22 vitamin B12 + folate, serum or blood 2022 023 [email or web address] Not available 03/27/2023 14:00:43 Referral neurologi denis surgeon referral - Please call patient to schedule. 2023 024 annmarie [facility] Neurosurgery, [address] [facility], [place], [address], 05/12/2024 17:40:[address] referral - Please call patient to schedule. 2023 [facility] Audiology, [address], [place], [address], 02/06/2024 15:58:02 physical therapist referral - Please call patient to schedule. 2023 [facility], [address], [place], [address], 01/16/2024 15:53:21 psychiatr ist referral - Please call patient to schedule. 2023 lanie aBker GOLF COU[employer] EQUIPMENT OPERATOR, [address] [facility], [address], [place], [address], 03/15/2024 08:02:56 endocrino logy referral 2023 CAROL De Souza MD, [address] [facility], [address], [place], [address], 04/09/2024 16:55:08 endocrino logy referral - Transfer from Dr. Jennie Horton 2022 023 [email or web address] [place], [address], [address], [facility], [place], [address], Ph [phone] 07/16/2023 09:19:10 Procedures None recorded. Surgeries None recorded. Imaging XR, thoracic spine, 2 view 2023 024 [facility], [address] , [place], [address], 01/20/2024 14:11:21 Medication Orders Synthroid 100 mcg tablet 2024 025 [email or web address] [facility], [address], [place], [id number], 04/09/2024 17:29:21 diclofena c sodium 75 mg tablet,de layed release 2023 [facility]74003, [address], [place], [id number], 04/06/2024 15:13:52 dextroamp hetamine- amphetami ne 10 mg tablet 2023 024 [facility] #98313, [address], [place], [id number], 04/06/2024 15:13:26 folic acid 1 mg tablet 2023 024 [facility] #12257, [address] [place] [address], [id number], 04/06/2024 15:13:56 Synthroid 100 mcg tablet 2023 024 [email or web address] [facility] #52072, [address] [place] [address], [id number], 04/09/2024 17:29:21 Patient TargetsNo targets recorded. Patient Instructions Encounter Date Encounter Id Patient Instructions Last Modified By Organization Details Last Modified Time 07/23/2023 [id number] Follow up in 6 months and as needed Obtain labs Prescriptions sent to pharmacy Referral to endocrinology-Dr. 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 Referring Physician: Floresita Sinha Internal Medicine, Encounter Date: 01/28/2024 Results Created Date Observation Date Name Description Value Unit Range Abnormal Flag Note LastModifiedBy Organization Detail LastModifiedTime 03/05/2003/05/2023 CBC/C OMPLE TE BLD COUNT W/DIF F white blood cells 6.0 x10'3 /uL 4.2-10 .8 Not Available [facility] (Lab) [address] [place], [address], 03/05/2023 12:40:41 03/05/2003/05/2023 CBC/C OMPLE TE BLD COUNT W/DIF F red blood cells 4.21 x10'6 /uL 3.80-5 .20 Not Available [facility] (Lab) [address] [place], [address], 03/05/2023 12:40:41 03/05/20 23 03/05/2023 CBC/C OMPLE TE BLD COUNT W/DIF F hemoglobin 13.4 g/dL 12.0-1 5.6 Not Available [facility] (Lab) [address] [place], [address], 03/05/2023 12:40:41 03/05/20 23 03/05/2023 CBC/C OMPLE TE BLD COUNT W/DIF F hematocrit 41.8 % 35.7-4 5.7 Not Available [facility] (Lab) [address] [place], [address], 03/05/2023 12:40:41 03/05/20 23 03/05/2023 CBC/C OMPLE TE BLD COUNT W/DIF F mean red cell volume 99.3 fL 82.0-9 9.0 high Not Available [facility] (Lab) [address] [place], [address], 03/05/2023 12:40:41 03/05/2003/05/2023 CBC/C OMPLE TE BLD COUNT W/DIF F mean red cell hemoglobin 31.8 pg 27.0-3 3.0 Not Available [facility] (Lab) [address] [place], [address], 03/05/2023 12:40:41 03/05/20 23 03/05/2023 CBC/C OMPLE TE BLD COUNT W/DIF F mean RBC HGB concentratio n 32.1 g/dL 31.0-3 6.0 Not Available [facility] (Lab) [address] [place], [address], 03/05/2023 12:40:41 03/05/20 23 03/05/2023 CBC/C OMPLE TE BLD COUNT W/DIF F red cell distribution width 12.9 % 11.8-1 5.5 Not Available [facility] (Lab) [address] [facility] [place], [address], 03/05/2023 12:40:41 03/05/2003/05/2023 CBC/C OMPLE TE BLD COUNT W/DIF F platelets 208 x10'3 /uL 150-40 0 Not Available [facility] (Lab) [address] [place], [address], 03/05/2023 12:40:41 03/05/2003/05/2023 CBC/C OMPLE TE BLD COUNT W/DIF F mean platelet volume 10.2 fL 9.0-12 .4 Not Available [facility] (Lab) [address] [place], [address], 03/05/2023 12:40:41 03/05/2003/05/2023 CBC/C OMPLE TE BLD COUNT W/DIF F neutrophils 59.7 % 39.0-7 2.0 Not Available [facility] (Lab) [address] [place], [address], 03/05/2023 12:40:41 03/05/20 23 03/05/2023 CBC/C OMPLE TE BLD COUNT W/DIF F lymphocytes 26.8 % 16.0-4 7.0 Not Available [facility] (Lab) [address] [place], [address], 03/05/2023 12:40:41 03/05/20 23 03/05/2023 CBC/C OMPLE TE BLD COUNT W/DIF F monocytes 9.7 % 5.0-12 .0 Not Available [facility] (Lab) [address] [place], [address], 03/05/2023 12:40:41 03/05/20 23 03/05/2023 CBC/C OMPLE TE BLD COUNT W/DIF F eosinophils 2.9 % 1.0-7. 0 Not Available [facility] (Lab) [address] [place], [address], 03/05/2023 12:40:41 03/05/2003/05/2023 CBC/C OMPLE TE BLD COUNT W/DIF F basophils 0.7 % 0.0-2. 0 Not Available [facility] (Lab) [address] [place], [address], 03/05/2023 12:40:41 03/05/2003/05/2023 CBC/C OMPLE TE BLD COUNT W/DIF F immature granulocytes 0.2 % 0.00-0 .50 Not Available [facility] (Lab) [address] [place], [address], 03/05/2023 12:40:41 03/05/2003/05/2023 CBC/C OMPLE TE BLD COUNT W/DIF F neutrophils, absolute count 3.56 x10'3 /uL 1.5-8. 0 Not Available [facility] (Lab) [address] [place], [address], 03/05/2023 12:40:41 03/05/2003/05/2023 CBC/C OMPLE TE BLD COUNT W/DIF F lymphocytes, absolute count 1.60 x10'3 /uL 1.07-3 .43 Not Available [facility] (Lab) [address] [place], [address], 03/05/2023 12:40:41 03/05/20 23 03/05/2023 CBC/C OMPLE TE BLD COUNT W/DIF F monocytes, absolute count 0.58 x10'3 /uL 0.29-0 .99 Not Available [facility] (Lab) [address] [place], [address], 03/05/2023 12:40:41 03/05/20 23 03/05/2023 CBC/C OMPLE TE BLD COUNT W/DIF F eosinophils, absolute count 0.17 x10'3 /uL 0.02-0 .53 Not Available [facility] (Lab) [address] [place], [address], 03/05/2023 12:40:41 03/05/20 23 03/05/2023 CBC/C OMPLE TE BLD COUNT W/DIF F basophils, absolute count 0.04 x10'3 /uL 0.01-0 .08 Not Available [facility] (Lab) [address] [place], [address], 03/05/2023 12:40:41 03/05/2003/05/2023 CBC/C OMPLE TE BLD COUNT W/DIF F immature granulocytes ,absolute 0.01 x10'3 /uL 0.00-0 .05 Not Available [facility] (Lab) [address] [place], [address], 03/05/2023 12:40:41 03/05/2003/05/2023 CBC/C OMPLE TE BLD COUNT W/DIF F nucleated red blood cells 0.0 % -0 Not Available [facility] (Lab) [address] [place], [address], 03/05/2023 12:40:41 03/05/20 23 03/05/2023 CBC/C OMPLE TE BLD COUNT W/DIF F NRBC# 0.00 x10'3 /uL Not Available [facility] (Lab) [address] [place], [address], 03/05/2023 12:40:41 03/05/2003/05/2023 COMPR EHENS PATRICIA METAB OLIC PANEL sodium 140 mmol/ L 137-14 5 Not Available [facility] (Lab) [address] [place], [address], 03/05/2023 13:00:55 03/05/2003/05/2023 COMPR EHENS PATRICIA METAB OLIC PANEL potassium 4.5 mmol/ L 3.5-5. 1 Not Available [facility] (Lab) [address] [place], [address], 03/05/2023 13:00:55 03/05/20 23 03/05/2023 COMPR EHENS PATRICIA METAB OLIC PANEL chloride 104 mmol/ L 98-107 Not Available [facility] (Lab) [address] [place], [address], 03/05/2023 13:00:55 03/05/20 23 03/05/2023 COMPR EHENS PATRICIA METAB OLIC PANEL carbon dioxide 29 mmol/ L 22-30 Not Available [facility] (Lab) [address] [place], [address], 03/05/2023 13:00:55 03/05/20 23 03/05/2023 COMPR EHENS PATRICIA METAB OLIC PANEL anion gap 11.5 mmol/ L 14-22 low Not Available [facility] (Lab) [address] [place], [address], 03/05/2023 13:00:55 03/05/20 23 03/05/2023 COMPR EHENS PATRICIA METAB OLIC PANEL glucose 91 mg/dL 70-99 Not Available [facility] (Lab) [address] [place], [address], 03/05/2023 13:00:55 03/05/20 23 03/05/2023 COMPR EHENS PATRICIA METAB OLIC PANEL BUN 18 mg/dL 8-19 Not Available [facility] (Lab) [address] [place], [address], 03/05/2023 13:00:55 03/05/20 23 03/05/2023 COMPR EHENS PATRICIA METAB OLIC PANEL creatinine 0.74 mg/dL 0.66-1 .25 Not Available [facility] (Lab) [address] [place], [address], 03/05/2023 13:00:55 03/05/20 23 03/05/2023 COMPR EHENS PATRICIA METAB OLIC PANEL GFR >60 Refer ence Range : [place] ge GFR Healt hy Adult : >60 [...] calcu lator is avail able on the [facility] websi te: https ://seth mccarthy.adelina sykes.o rg/pr ofess ional s/kdo qi/gf r_cal culat or Not Available [facility] (Lab) [address] [place], [address], 03/05/2023 13:00:55 03/05/20 23 03/05/2023 COMPR EHENS PATRICIA METAB OLIC PANEL alkaline phosphatase 82 U/L 38-126 Not Available [facility] (Lab) [address] [place], [address], 03/05/2023 13:00:55 03/05/20 23 03/05/2023 COMPR EHENS PATRICIA METAB OLIC PANEL alanine aminotransfe rase 55 U/L 0-35 high Not Available [facility] (Lab) [address] [place], [address], 03/05/2023 13:00:55 03/05/20 23 03/05/2023 COMPR EHENS PATRICIA METAB OLIC PANEL aspartate aminotransfe rase 40 U/L 15-37 high Not Available [facility] (Lab) [address] [place], [address], 03/05/2023 13:00:55 03/05/20 23 03/05/2023 COMPR EHENS PATRICIA METAB OLIC PANEL bilirubin, total 0.50 mg/dL 0.20-1 .30 Not Available [facility] (Lab) [address] [place], [address], 03/05/2023 13:00:55 03/05/20 23 03/05/2023 COMPR EHENS PATRICIA METAB OLIC PANEL calcium 9.7 mg/dL 8.4-10 .2 Not Available [facility] (Lab) [address] [place], [address], 03/05/2023 13:00:55 03/05/20 23 03/05/2023 COMPR EHENS PATRICIA METAB OLIC PANEL total protein 7.1 g/dL 6.3-8. 2 Not Available [facility] (Lab) [address] [place], [address], 03/05/2023 13:00:55 03/05/20 23 03/05/2023 COMPR EHENS PATRICIA METAB OLIC PANEL albumin 4.2 g/dL 3.4-5. 0 Not Available [facility] (Lab) [address] [place], [address], 03/05/2023 13:00:55 03/05/20 23 03/05/2023 COMPR EHENS PATRICIA METAB OLIC PANEL globulin 2.9 g/dL 2.6-4. 2 Not Available [facility] (Lab) [address] [place], [address], 03/05/2023 13:00:55 03/05/2003/05/2023 COMPR EHENS PATRICIA METAB OLIC PANEL A/G ratio 1.4 ratio 1.0-2. 0 Not Available [facility] (Lab) [address] [place], [address], 03/05/2023 13:00:55 03/05/2003/05/2023 LIPID PANEL cholesterol 233 mg/dL 140-19 9 high NIH GIOVANY NSUS RECOM MENDA TION FOR JAMES STERO L: ADULT CHILD LOW RISK: <200 <170 BORDE RLINE : <200- 239 ----- HIGH RISK: >240 >200 Not Available [facility] (Lab) [address] [place], [address], 03/05/2023 13:00:59 03/05/2003/05/2023 LIPID PANEL triglyceride s 52 mg/dL 0-150 NIH GIOVANY NSUS REPOR T RECOM MENDA TION FOR TRIGL YCERI UNRULY: ADULT CHILD LOW RISK: <150 ----- BODER LINE: 150-1 99 ----- HIGH RISK: >200 ----- Not Available [facility] (Lab) [address] [place], [address], 03/05/2023 13:00:59 03/05/2003/05/2023 LIPID PANEL HDL cholesterol 87 mg/dL 40- Not Available [facility] (Lab) [address] [place], [address], 03/05/2023 13:00:59 03/05/2003/05/2023 LIPID PANEL LDL cholesterol, [...] WILL NOT BE REPOR JAVIER. Not Available [facility] (Lab) [address] [place], [address], 03/05/2023 13:00:59 03/05/2003/05/2023 T4 FREE free T4 1.31 NG/dL 0.78-2 .19 Not Available [facility] (Lab) [address] [place], [address], 03/05/2023 13:05:56 03/05/2003/05/2023 T3 FREE free T3 2.8 pg/mL 2.77-5 .27 Not Available [facility] (Lab) [address] [place], [address], 03/05/2023 13:06:01 03/05/2003/05/2023 VITAM IN D 25-HY DROXY vd25oh 65.2 NG/mL 30-100 Vitam in D Statu s: Defic ient: <20 ng/mL Insuf ficie nt: 20-29 ng/mL Suffi cient : 30-10 0 ng/mL Not Available [facility] (Lab) [address] [place], [address], 03/05/2023 14:19:24 03/05/2003/05/2023 TSH thyroid-stim ulating hormone 3.030 uIU/m L 0.465- 4.680 Not Available [facility] (Lab) [address] [place], [address], 03/05/2023 14:19:39 03/05/2003/05/2023 VITAM IN B12 (KASANDRA VERN ) vb12 449 pg/mL 239-93 1 Not Available [facility] (Lab) [address] [place], [address], 03/05/2023 14:23:04 03/05/20 23 03/05/2023 FOLAT E, SERUM /PLAS MA folate >20.0 NG/mL 2.76-2 0.0 Not Available [facility] (Lab) [address] [place], [address], 03/05/2023 14:23:05 03/05/20 23 03/05/2023 HEMOG LOBIN A1C HA1C 5.0 % 4.0-6. 0 Diabe perla Scree alison Crite ger: <5.7% Consi stent with absen ce of diabe perla 5.7-6 .4% Consi stent with incre ased risk for diabe perla (pred iabet es) >OR=6 .5% Consi stent with diabe perla REFER ENCE: Diabe perla Care 2016, 39(Villavicencio ppl.1 ):s13 -s22 Not Available [facility] (Lab) [address] [place], [address], 03/05/2023 15:06:46 03/05/20 23 03/06/2023 THYRO ID PEROX IDASE (TPO) AB thyroid peroxidase (tpo) Ab 299 IU/mL 0-34 high Perfo rmed at: [facility] [place] [address] Lab Direc tor: Can gross PhD, Phone : [phone] Not Available [facility] (Lab) [address] [place], [address], 03/06/2023 08:18:46 01/20/2001/14/2024 XR, lumba r spine No observ ation record ed. [address] [place], [address], 01/20/2024 15:25:15 01/20/20 24 01/14/2024 XR, thora cic spine , 2 view No observ ation record ed. [facility] [address] [place] [address] [place], [address], 01/20/2024 15:25:16 06/22/19 25 06/21/2024 imagi ng/di agnos tic resul t No observ ation record ed. [facility] [address], [place], [address], 06/21/2024 18:15:49 Result Notes None recorded. Problems Name Problem SNOMED Code Status Onset Date Resolution Date Notes Provider Name and Address Organization Details Recorded Time [place] 373212447 Completed 202110/28/2023 Floresita Sinha APRN [address], [place], [address], [employer] 4 15:07:51 Hypothyroid ism 94885114 Completed 202104/06/2024 Floresita Sinha APRN [address], [address], [place], [address], [employer] 5 15:23:43 Liver enzymes level above reference range 864550665 Completed 202110/28/2023 Floresita Sinha APRN [address], [address], [place], [address], [employer] 4 15:07:55 Hypothyroid ism due to Lary's thyroiditis 505520331 Active 2022 Floresita Sinha APRN [address], [address], [place], [address], [employer] 4 10:14:53 Osteoporosi s 28435866 Active 2022 Floresita Sinha APRN [address], [place], [address], [employer] 4 10:15:02 Mixed anxiety and depressive disorder 194614324 Active 2022 Floresita Sinha APRN [address], [address], [place], [address], [employer] 4 10:14:56 Vitamin D deficiency 89984107 Active 2022 Floresita Sinha APRN [address], [address], [place], [address], [employer] 4 10:15:09 Decreased hearing 164349814 Active 2022 Floresita Sinha APRN [address], [address], [place], [address], [employer] 4 15:07:49 Postmenopau jen osteoporosi s 180182351 Active 2022 Floresita Sinha APRN [address], [place], [address], [employer] 4 15:07:58 Fatigue 23707702 Active 2022 Floresita Sinha APRN [address], [place], [address], [employer] 4 10:14:38 Skin lesion 94851592 Completed 202210/28/2023 Floresita Sihna APRN [address], [place], [address], [employer] 4 15:08:07 Vitamin B12 deficiency (non anemic) 26400491 Active 2022 Floresita Sinha APRN [address], [place], [address], [employer] 4 10:15:04 Basal cell carcinoma of skin 053160296 Completed 202210/28/2023 Floresita Sinha APRN [address], [address], [place], [address], [employer] 4 15:07:46 Cobalamin deficiency 270255299 Active 2022 Floresita Sinha APRN [address], [address], [place], [address], [employer] 4 10:14:26 Folic acid deficiency 247672567 Active 2022 Floresita Sinha APRN [address], [place], [address], [facility] [employer] [facility] [employer] 4 10:14:42 Thoracic back pain 099137507 Active 2023 Floresita Sinha APRN [address], [place], [address], [facility] [employer] [facility] [employer] [facility] 4 13:36:27 Attention deficit hyperactivi ty disorder 877084963 Active 2023 Floresita Sinha APRN [address], [place], [address], [facility] [employer] [facility] [employer] [facility] 4 10:46:38 Low back pain 000633951 Active 2023 Floresita Sinha APRN [address], [place] [address], [place], [address], [facility] [employer] [facility] [employer] [facility] 4 10:58:52 Degeneratio n of interverteb ral disc 44070437 Active 2023 Floresita Sinha APRN [address], [place] [address], [place], [address], [facility] [employer] [facility] [employer] 4 15:04:36 Hearing difficulty 605846931 Active 2023 Floresita Sinha APRN [address], [place] [address], [place], [address], [facility] [employer] [facility] [employer] [facility] 4 11:28:11 Problem Notes None recorded. Procedures Surgical History Date Name Laterality Status Provider Name and Address Organization Details Recorded Time 03/04/20 excision of basal cell carcinoma completed Jennifer Balderas MA [facility] [employer] 03/05/2023 10:56:26 12/20/19 22 Cholecystectomy completed Not Available [facility] 05/23/2022 01:04:19 Imaging Results Imaging Date Name Status LastModified by Organiz ation Details LastModified Time 01/14/2024 XR, lumbar spine completed [address] , [place], [address], 01/20/2024 15:25:15 01/14/2024 XR, thoracic spine, 2 view completed [facility] [address] [place] [address] , [place], [address], 01/20/2024 15:25:16 06/21/2024 imaging/diagn ostic result active [facility] [address] [facility] [address], [place], [address], 06/21/2024 18:15:49 Procedure Notes None recorded. Medical Equipment None Reported. Allergies Allergen ID Allergen Name Allergen Category Reaction Reaction Severity Criticality Documentation Date Start Date Code Code System Note Provider Name and Address Organization Details Recorded Time 43697 No known allergy (situatio n) Not available Not available Not available Not available 07/25/2023 [id number] [id number] SNOMED Floresitavaldez Sinha, SHIPPER/RECEIVER [address] [facility], [facility] [address], [place], [address] , [facility] [employer] 12:01:24 No known drug allergies Medications Name [...] Updated DateTime 3 172.72 cm 21.7 kg/m2 13667.7 1 g 97.4 [degF] 80 /min 100 % 100 % 126 mm[Hg] 72 mm[Hg] Jennifer Balderas, MA [place] [facility] [place] [employer] 3 10:58:03 Date Recorded Body height Body mass index (BMI) Body weight Body temperature Heart rate Oxygen saturation Oxygen saturation in Arterial blood by Pulse oximetry Systolic blood pressure Diastolic blood pressure Provider Name and Address Organization Details Last Updated DateTime 4 172.72 cm 22.2 kg/m2 94690.4 9 g 97.3 [degF] 70 /min 99 % 99 % 140 mm[Hg] 68 mm[Hg] Rosaura Mccormick MA MS [employer] [facility] 4 10:05:27 Date Recorded Body height Body mass index (BMI) Body weight Body temperature Heart rate Oxygen saturation Oxygen saturation in Arterial blood by Pulse oximetry Pain severity - 0-10 verbal numeric rating [Score] - Reported Systolic blood pressure Diastolic blood pressure Provider Name and Address Organization Details Last Updated DateTime 4 172.72 cm 21.4 kg/m2 19653.5 2 g 96.7 [degF] 75 /min 98 % 98 % 7 130 mm[Hg] 70 mm[Hg] Rosaura Mccormick MA MS [email or web address] 4 10:22:30 Date Recorded Body height Body mass index (BMI) Body weight Body temperature Heart rate Oxygen saturation Oxygen saturation in Arterial blood by Pulse oximetry Pain severity - 0-10 verbal numeric rating [Score] - Reported Systolic blood pressure Diastolic blood pressure Provider Name and Address Organization Details Last Updated DateTime 4 172.72 cm 21.1 kg/m2 25150.3 4 g 98.2 [degF] 78 /min 97 % 97 % 5 128 mm[Hg] 74 mm[Hg] Rosaura Mccormick MA [email or web address] 4 11:11:00 Date Recorded Body height Body mass index (BMI) Body weight Body temperature Heart rate Oxygen saturation Oxygen saturation in Arterial blood by Pulse oximetry Pain severity - 0-10 verbal numeric rating [Score] - Reported Systolic blood pressure Diastolic blood pressure Provider Name and Address Organization Details Last Updated DateTime 5 172.72 cm 20.8 kg/m2 17570.1 5 g 97.7 [degF] 84 /min 99 % 99 % 0 118 mm[Hg] 72 mm[Hg] JESSICA Somers [employer] [facility] [email or web address] 5 15:13:03 Social History Question Answer Notes LastModified by Organizat ion Details LastModified Time Tobacco Smoking Status Former Smoker [place] Prabhakar, [place] - [facility] 03/05/2023 10:52:48 What Is Your Level Of Alcohol Consumption? Occasional [id number] Information not available 05/23/2022 Do You Wear A Helmet When Biking? Yes [email or web address] Information not available 03/05/2023 What Is Your Level Of Caffeine Consumption? Moderate [id number] Information not available 05/23/2022 In The 14 Days Before Symptom Onset, Have You Had Close Contact With A Laboratory-confi rmed COVID-19 While That Case Was Ill? No [email or web address] Information not available 03/05/2023 In The 14 Days Before Symptom Onset, Have You Had Close Contact With A Person Who Is Under Investigation For COVID-19 While That Person Was Ill? No [email or web address] Information not available 03/05/2023 Are You Currently Employed? No Information not available 01/14/2024 What Type Of Diet Are You Following? REGULAR [id number] Information not available 05/23/2022 What Is The Highest Grade Or Level Of School You Have Completed Or The Highest Degree You Have Received? [id number] [email or web address] Information not available 03/05/2023 Have There Been Any Changes To Your Family Or Social Situation? Yes [email or web address] Information not available 03/05/2023 What Is The Fluoride Status Of Your Home? Unknown [email or web address] Information not available 03/05/2023 When Did You Quit Smoking? 16+yearssincelastci maria eugenialisa [email or web address] Information not available 03/05/2023 Are There Any Guns Present In Your Home? No [email or web address] Information not available 03/05/2023 Do You Use Insect Repellent Routinely? No [email or web address] Information not available 03/05/2023 Where Do You Live? SingleLevelHouse [email or web address] Information not available 03/05/2023 What Was The Date Of Your Most Recent Tobacco Screening? 04/06/2024 Information not available 04/06/2024 How Many Children Do You Have? 1 Information not available 01/14/2024 Do You Have Any Pets? Yes [email or web address] Information not available 03/05/2023 What Is Your Relationship Status? [id number] Information not available 05/23/2022 Do You Use Your Seat Belt Or Car Seat Routinely? Yes Information not available 03/05/2023 Do You Have Smoke And Carbon Monoxide Detectors In Your Home? Yes [email or web address] Information not available 03/05/2023 Are You Passively Exposed To Smoke? No [email or web address] Information not available 03/05/2023 Are There Any Smokers In Your House? No [email or web address] Information not available 03/05/2023 Do You Feel Stressed (tense, Restless, Nervous, Or Anxious, Or Unable To Sleep At Night)? [id number] Information not available 03/05/2023 Do You Use Any Illicit Or Recreational Drugs? No [email or web address] Information not available 03/05/2023 Do You Use Sunscreen Routinely? No [email or web address] Information not available 03/05/2023 Have You Recently Traveled Abroad? No Information not available 03/05/2023 Do You Have Any Dietary Restrictions? No Information not available 03/05/2023 Do You Or Have You Ever Used Any Other Forms Of Tobacco Or Nicotine? No [email or web address] Information not available 03/05/2023 Sex: Female Functional Status Question Answer Note LastModified by Organizat ion Details LastModified Time What is your exercise level? Occasional [id number] Information not available 05/23/2022 Mental Status [...] HAVE YOU BEEN HOSPITALIZED OR SEEN IN [facility] IN THE PAST YEAR ? N ATHEROSCLEROSIS [...] Immunizations Vaccine Type Date Status Note Provider Vicetne richmond and Address Organization Details Recorded Time COVID-19, mRNA, LNP-S, PF, 100 mcg/0.5mL dose or 50 mcg/0.25mL dose 03/13/2021 completed Floresita Sinha, SHIPPER/RECEIVER [address] [facility], [facility] [address], [place], [address], [facility] [employer] [facility] 07/25/2023 12:00:56 COVID-19, mRNA, LNP-S, PF, 30 mcg/0.3 mL dose 07/20/2020 completed Floresita Sinha APRN [address], [place], [address], [facility] [employer] [facility] 07/25/2023 12:00:56 COVID-19, mRNA, LNP-S, PF, 30 mcg/0.3 mL dose 06/28/2020 completed Floresita Sinha APRN [address], [address], [place], [address], [facility] [employer] [facility] 07/25/2023 12:00:56 COVID-19, mRNA, LNP-S, bivalent, PF, 30 mcg/0.3 mL dose 04/28/2022 completed Floresita Sinha APRN [address], [address], [place], [address], [facility] [employer] [facility] 07/25/2023 12:00:56 COVID-19, mRNA, LNP-S, PF, 100 mcg/0.5mL dose or 50 mcg/0.25mL dose 10/18/2021 completed Floresita Sinha APRN [address], [address], [place], [address], [facility] [employer] [facility] 01/14/2024 10:36:58 Past Encounters Encounter ID Performer Location Encounter Start Date Encounter Closed Date Diagnosis/Indication Diagnosis SNOMED-CT Code Diagnosis ICD10 Code Diagnosis Note [id number] [facility] Internal Med Kali [address] [place] [address] 09/26/2021 00:00:00 09/26/2021 13:59:37 [id number] [facility] Internal Med Kali goncalves [address] [place] [address] 11/14/2021 00:00:00 11/14/2021 17:17:25 [id number] [facility] General Surgery [address] [place] [address] 12/06/2021 00:00:00 12/06/2021 14:29:18 [id number] [facility] General Surgery [address] [place] [address] 01/01/2022 00:00:00 01/01/2022 12:05:38 [id number] [facility] Internal Med Kali goncalves [address] [facility] y , [place] [address] 02/06/2022 00:00:00 02/06/2022 15:08:32 [id number] [facility] Endo Watkins [address] [place] [address] 03/04/2022 00:00:00 03/04/2022 15:48:15 [id number] Yasmin Sanchez, EXCEPTIONAL CHILDREN TEACHER ASSISTANT-C [facility] Internal Med Kali gon[address] , [place] [address] 08/28/2022 10:45:55 08/28/2022 11:06:31 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 Horton Osteoporosis 46044270 M8 1.0 not currently on meds, now following endodiscus sed med options- she declines all, is trying a vibration machine to help with her bone strengthre commend calcium, vitamin d, weight bearing exercise 2-3x per week Mixed anxi ety and depressive disorder 409964979 F41.8 she self stopped the lexaproCal l office if any change in mood or behaviorSh e declines psychiatry referralCo unseling recommende d -name /numbers provided to patient previously Decreased hearing 798861 001 H91.90 get appointmen t with audiologis t- has referral Vitamin D deficiency 347 79597 E55.9 on supplement Ex-smoker 5722015 Z87.89 1 does not qualify for LDCT- quit smoking over 20 years ago Hepatitis C antibody detected 173218784 Z86.19 PCR was negative Liver enzy mes level above reference range 153544285 R74.01 now normalized on labs 08/2022 post-ajmes cystectomy Screening mammography 24 030400 Z12.31 Skin lesion 56966237 L98 .9 get appt with derm for skin check Referral needed 20302243 9 Z76.89 Adult heal th examination 565239726 Z00.01 Depression screening 171 871709 Z13.31 Normal bod y mass index 69290255 Z68.21 recommend healthy, well balanced mealsfocus on lean meats, fresh vegetables , fresh fruits, whole grainsredu ce fast/proce ssed foods or eating out to no more than 1-2 times per weekaim to get 30 min of exercise most days of the week- walking is a great choicealso recommend resistance training 2-3 times per week [id number] Jennie Horton MD [facility] Endo Watkins [address] [place] [address] 08/27/2022 09:28:17 08/27/2022 10:02:28 Hypothyroidism 36516187 E03.9 TSH and FT4 in ideal range [...] and reduce inflammati on. Postmenopa usal osteoporosis 518921192 M81.0 Send for full panel prior to labwork to screen for parathyroi d disease. repeat bone density in summer 2023. Fatigue 77379729 R53.83 Trial on low dose lomaria 8 [...] she chooses to go outside of the [facility] to obtain labwork she was [...] in her case. She voiced understand ing. [id number] Jennie Horton MD [facility] Endo Roney Lambert [address] [place] [address] 12/27/2022 09:26:52 12/27/2022 09:52:58 Hypothyroidism 50175440 E03.9 TSH and FT4 in ideal range [...] on. Vitamin B1 2 deficiency (non anemic) 31141605 E53.8 Trial on B12 injections as patient [...] answered and refills necessary at visit today. 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 Branch needs new endo referralre ferral placed for Dr. Crocker Synthroid from endo Osteoporosis 23253134 M8 1.0 not currently on meds, now following endodiscus sed med options- she declines all, is trying a vibration machine to help with her bone strengthre commend calcium, vitamin d, weight bearing exercise 2-3x per week Mixed anxi ety and depressive disorder 888173610 F41.8 she self stopped the lexaproCal l office if any change in mood or behaviorSh e declines psychiatry referralCo unseling recommende d -name /numbers provided to patient previously Decreased hearing 669278 001 H91.90 get appointmen t with audiologis t- has referral Vitamin D deficiency 347 16958 E55.9 on supplement Ex-smoker 9114898 Z87.89 1 does not qualify for LDCT- quit smoking over 20 years ago Hepatitis C antibody detected 456645547 Z86.19 PCR was negative Liver enzy mes level above reference range 736502835 R74.01 now normalized on labs 08/2022 post-james cystectomy Normal bod y mass index 74561325 Z68.21 recommend healthy, well balanced mealsfocus on lean meats, fresh vegetables , fresh fruits, whole grainsredu ce fast/proce ssed foods or eating out to no more than 1-2 times per weekaim to get 30 min of exercise most days of the week- walking is a great choicealso recommend resistance training 2-3 times per week Basal cell carcinoma of skin 147513910 C44.91 following dermatolog y at [facility]/p excision Hyperlipid emia screening 384973246 Z13.220 Diabetes m ellitus screening 178998799 Z13.1 Cobalamin deficiency 190 606095 E53.8 on injections from endo Folic acid deficiency 19 5653629 E53.8 on supplement Fatigue 16083869 R53.83 labs as abovenew endo referral placed as above [id number] Floresita Sinha APRN [facility] Internal Med [facility] [address] [facility] [place] 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 , [place] [address] 01/14/2024 10:09:02 01/14/2024 10:53:09 Thoracic back pain 942306989 M54.6 Attention deficit hyperactivity disorder 240779307 F90.9 [id number] Floresita Sinha APRN [facility] [address] [facility] [address] [place] [address] 01/28/2024 10:56:41 01/28/2024 12:02:14 Degeneration of intervertebral disc 09879725 M51.9 Hearing difficulty 40242 0000 H91.93 Hypothyroidism 67390048 E03.9 [id number] Laquita Baker NP [facility] [address] [address] 02/04/2024 11:54:45 02/05/2024 14:10:32 [id number] Laquita Baker NP [facility] [address] [facility], [address] [address] 03/03/2024 12:02:38 03/03/2024 12:42:51 [id number] Floresita Sinha APRN [facility] Internal Med [facility] [address] [facility], [facility] [address] [place] [address] 04/06/2024 14:58:36 04/06/2024 15:28:04 Hypothyroidism 37523060 E03.9 [id number] Laquita Baker NP [facility] [address] [address] 03/31/2024 11:58:17 03/31/2024 12:51:14 [id number] Laquita Baker NP [facility] [address] [address] 04/28/2024 12:02:05 04/28/2024 14:24:44 [id number] Laquita Baker NP [facility] [address] [address] 05/26/2024 11:15:16 05/26/2024 12:27:25 Health Concerns Section Related Observation LastModified by Organization Detai ls LastModified Time None Recorded Concern Status LastModified by Organization Details LastModified Time None Recorded Advance Directives Directive None Recorded Payers Encounter Date Sequence Insurance Name Policy Number Policy Nair Covered Member ID Nair Member ID Guarantor Name 03/05/2023 1 [employer] [place] [id number] Cherelle Salter [id number] Cherelle Salter 07/23/2023 1 [employer] [place] [id number] Cherelle Salter [id number] Cherelle Salter 01/14/2024 1 [employer] [place] [id number] Cherelle Salter [id number] Cherelle Salter 01/28/2024 1 [employer] [place] [id number] Cherelle Salter [id number] Cherelle Salter 04/06/2024 1 [employer] [place] [id number] Cherelle Salter [id number] Cherelle Salter Notes Date Note Type Note [...] did see Dermatology over at [facility] yesterday. They removed basal cell carcinoma on her chest. She reports she follows up again with them in July. She is due for labs. She declines flu vaccine today. She reports her mammogram is scheduled today [facility] for April. Yasmin Sanchez, BRYAN-Earnest [address], [place], [address], [employer] 03/05/2023 11:20:29 07/23/2023 text/html Cat presents toyessenia ay to establish care. She states that she is in need of an compensation and benefits advisor, as hers has left the area, for [...] did see Dermatology over at [facility] yesterday. They removed basal cell carcinoma on her chest. She reports she follows up again with them in July. She is due for labs. She declines flu vaccine today. She reports her mammogram is scheduled today [facility] for April. Floresita Sinha APRN [address], [place], [address], [employer] 07/23/2023 10:28:19 01/14/2024 text/html Cat presents toyessenia [...] that she is in need of an compensation and benefits advisor, as hers has left the area, for [...] did see Dermatology over at [facility] yesterday. They removed basal cell carcinoma on her chest. She reports she follows up again with them in July. She is due for labs. She declines flu vaccine today. She reports her mammogram is scheduled today [facility] for April. Floresita Sinha, SHIPPER/RECEIVER [address] [facility], [address], [place], [address], [facility] [employer] 01/14/2024 10:51:17 01/28/2024 text/html Cat presents toyessenia [...] that she is in need of an compensation and benefits advisor, as hers has left the area, for [...] did see Dermatology over at [facility] yesterday. They removed basal cell carcinoma on her chest. She reports she follows up again with them in July. She is due for labs. She declines flu vaccine today. She reports her mammogram is scheduled today [facility] for April. Floresita Sinha, SHIPPER/RECEIVER [address], [place], [address], [place] [facility] [email or web address] 01/28/2024 11:31:40 04/06/2024 text/html Doris presents toyessenia [...] that she is in need of an compensation and benefits advisor, as hers has left the area, for [...] did see Dermatology over at [facility] yesterday. They removed basal cell carcinoma on her chest. She reports she follows up again with them in July. She is due for labs. She declines flu vaccine today. She reports her mammogram is scheduled today [facility] for April. Floresita Sinha, SHIPPER/RECEIVER [address] [facility], [facility] [address], [place], [address], [place] [facility] [employer] 04/06/2024 15:27:22 OBGyn Episode No OBEpisode recorded.
--- OUTSIDE RECORDS SUMMARY | 2024-07-08 09:36 | XMS_ITS | Clinical Summary ---
Author Organization [facility] [employer] Address [address] [place] [address] Care Team Providers Care Student Nurse Name Role Phone Floresita Sinha Primary Care Provider [phone] Source Comments [facility],non-owned Affiliates and Associated Physician Practices is amultiple site organization consisting of ambulatory clinics and hospital sitesin [place], [place]. This disclosure is being madepursuant to the Care Everywhere program and may not contain all information available regarding this patient. Last updated 17.[facility] [employer] Allergies No known active allergies Medications * Be aware that medications may not be up to date on this document. Alwaysverify current medications with the patient. folic acid (Folvite) 1 MG tablet Take 1 (one) tablet by mouth every morning 12/27/2022 Active levothyroxine (Synthroid) 100 MCG tablet 03/30/2005 Active cyanocobalamin (Vitamin B-12) 1000 MCG tablet Take by mouth once daily Active clobetasol (Temovate) 0.05 % solutionIndicati ons:Other cicatricial alopecia Apply to scalp twice daily. 30 days supply. 50 mL 3 08/07/2023 Active doxycycline hyclate 100 MG tabletIndication s:Other cicatricial alopecia TAKE 1 TABLET BY MOUTH TWICE DAILY 60 tablet 2 11/03/2023 Active ketoconazole (Nizoral) 2 % shampooIndicatio ns:Other seborrheic dermatitis Apply to wet hair, leave on for 3 minutes, then rinse; three times weekly. 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 Immunizations Immunization Administration Dates Next Due Covid Pfizer primary monoval ent 12+ yr 0.3mL Purple cap 07/20/2020,06/28/2020 MODERNA SARS-COV-2 COVID-19 VACCINE 0.25ML 03/13 Social History Tobacco Use Types Packs/Day Years Used Date Smoking Tobacco: Never Smokeless Tobacco: Never Tobacco Cessation:Counseling Given: Not Answered Alcohol Use Standard Drinks/Week Comments Yes 0 (1 standard drink = 0.6 oz pur e alcohol) occasionaly Comments Unknown Sex and Gender Information Value Date Recorded Sex Assigned at Female 01/28/2023 11:52 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 WELL PUMPER Legal Sex Female 3:32 PM CDT Gender Identity Female 01/28/2023 11:52 AM OIL WELL PUMPER Sexual Orientation Not on file Plan of Treatment Upcoming Encounters Date Type Department Care Team (Late st Contact Info) Description 08/02/2024 2:10 PM CDT Office Visit [facility] - Dermatology [address] [place] [address], [facility] [place] [address] Kylee Razo MD [address] [place] [address] [place] [address] Health Maintenance Due Date Last Done Comments [...] 2023 04/28/2022, 03/13/2021, 07/20/2020, Additional history exists DEPRESSION SCREENING 03/24/2024 COLOGUARD (AGES 45-75) - COLON CA SCREENING 11/07/2024 11/07/2021 Colorectal Cancer Screening 11/07/2024 INFLUENZA VACCINE (Season Ended) 2024 Respiratory Syncytial Virus (RSV) Vaccine Pt: or [...] patient's age to complete this topic Insurance [facility] Care Teams Student Nurse Relationship Specialty Start Date End Date Floresita Sinha [facility] [place] [address] PCP - General 02/02/24
== END 2024-07-08 09:08 | disposition home or self-care (01) ==
PROVIDERS: Visit Provider Obstetrics & Gynecology
DX: Z12.31 Encounter for screening mammogram for malignant neoplasm of breast (principal); M81.0 Age-related osteoporosis without current pathological fracture; M85.89 Other specified disorders of bone density and structure, multiple sites
CPT/HCPCS: 77063; 77067; 77080